=== PATIENT | female | born 1935 | race Caucasian/White ===

== ENCOUNTER → 2018-04-30 10:17 | Outpatient (CLI) | payer BC, SELFPAY ==
--- NOTE | 2018-04-30 | DI.MG.S_ITS ---
BILATERAL DIGITAL SCREENING MAMMOGRAM 3D/2D WITH CAD: 04/30/2018 CLINICAL: Routine screening. Family history of breast cancer. Comparison is made to exams dated: 04/05/2017 mammogram, 02/08/2016 mammogram, and 12/30/2014 mammogram - [facility]. The tissue of both breasts is heterogeneously dense. This may lower the sensitivity of mammography. Current study was also evaluated with a Computer Aided Detection (CAD) system. There are post operative findings in the right breast. No significant masses, calcifications, or other findings are seen in either breast. There has been no significant interval change. IMPRESSION: NEGATIVE There is no mammographic evidence of malignancy. A 1 year screening mammogram is recommended. This exam was interpreted at Station ID: [id number]. NOTE: For mammograms, a report in lay terms will be sent to the patient. Approximately 15% of breast malignancies will not be visualized mammographically. In the management of a palpable breast mass, a negative mammogram must not discourage biopsy of a clinically suspicious lesion. Electronically Signed By: Mauricio hebert/keron:04/30/2018 16:38:40 letter sent: Normal Exam ACR BI-RADS Category 1: Negative 3341F
== END ==
PROVIDERS: Family Provider Family Medicine; PCP Family Medicine; Visit Provider Family Medicine
DX: Z12.31 Encounter for screening mammogram for malignant neoplasm of breast (principal); Z80.3 Family history of malignant neoplasm of breast
CPT/HCPCS: 77063; 77067

== ENCOUNTER → 2019-05-05 10:40 | Outpatient (CLI) | payer BC, SELFPAY ==
--- NOTE | 2019-05-05 | DI.MG.S_ITS ---
BILATERAL DIGITAL SCREENING MAMMOGRAM 3D/2D WITH CAD: 05/05/2019 CLINICAL: Routine screening. Family history of breast cancer. Comparison is made to exams dated: 04/30/2018 mammogram, 04/05/2017 mammogram, 02/08/2016 mammogram, and 12/30/2014 mammogram - [facility]. The tissue of both breasts is heterogeneously dense. This may lower the sensitivity of mammography. Current study was also evaluated with a Computer Aided Detection (CAD) system. There are benign biopsy clips in the right breast. There are mole markers on both breasts. No significant masses, calcifications, or other findings are seen in either breast. There has been no significant interval change. IMPRESSION: NEGATIVE There is no mammographic evidence of malignancy. A 1 year screening mammogram is recommended. This exam was interpreted at Station ID: [id number]. NOTE: For mammograms, a report in lay terms will be sent to the patient. Approximately 15% of breast malignancies will not be visualized mammographically. In the management of a palpable breast mass, a negative mammogram must not discourage biopsy of a clinically suspicious lesion. Electronically Signed By: Channing blunt/keron:05/05/2019 19:59:30 letter sent: Normal Exam ACR BI-RADS Category 1: Negative 3341F
== END ==
PROVIDERS: Family Provider Family Medicine; PCP Family Medicine; Visit Provider Family Medicine
DX: Z12.31 Encounter for screening mammogram for malignant neoplasm of breast (principal); Z80.3 Family history of malignant neoplasm of breast
CPT/HCPCS: 77063; 77067

== ENCOUNTER → 2019-12-15 13:37 | Outpatient (CLI) | payer BC, SELFPAY ==
--- NOTE | 2019-12-15 | DI.MRI.S_ITS ---
PROCEDURE: MR HEAD/BRAIN WO/W CON INDICATIONS: Headache TECHNIQUE: Noncontrast axial T1 spin echo, axial T2 fast spin echo, sagittal and axial FLAIR, coronal T2 fast spin echo, axial gradient echo, axial diffusion and ADC through the brain. After the administration of contrast, axial and coronal T1 spin echo with fat saturation through the brain. COMPARISON: None. FINDINGS: Image quality: Excellent. CSF spaces: Basal cisterns are patent. No extra-axial fluid collections. Ventricles are normal in size and shape. Brain: No midline shift. No intracranial bleeds or masses. No abnormal intracranial enhancement. There is cerebral volume loss for age. There is periventricular white matter chronic small vessel ischemic change. The brainstem appears normal. Diffusion-weighted images demonstrate no acute ischemic insults. No chronic ischemic insults. Normal intravascular flow voids are present. Skull and face: Calvarial marrow is normal in signal. Orbits appear normal. Sinuses: Sinuses and mastoids appear clear. IMPRESSION: No evidence of acute ischemia. No acute intracranial signal abnormality or enhancement. Diffuse small white matter changes, probably represent chronic microvascular ischemic disease, versus statistically less likely demyelination or other infectious, inflammatory, neurodegenerative etiology, technically nonspecific. Dictated by: Tadeo Shahid M.D. on 12/15/2019 at 14:49 Approved by: Tadeo Shahid M.D. on 12/15/2019 at 14:59
== END ==
PROVIDERS: Family Provider Family Medicine; PCP Family Medicine; Visit Provider Family Medicine
DX: R51 Headache (principal)
CPT/HCPCS: 70553; A9579

== ENCOUNTER → 2022-08-23 11:11 | Outpatient (CLI) | payer BC, SELFPAY ==
--- NOTE | 2022-08-23 | DI.MG.S_ITS ---
BILATERAL DIGITAL SCREENING MAMMOGRAM 3D/2D WITH CAD: 08/23/2022 CLINICAL: Routine screening. Family history of breast cancer. Comparison is made to exams dated: 05/05/2019 mammogram, 04/30/2018 mammogram, and 04/05/2017 mammogram - [facility]. Both breasts are heterogeneously dense, which may obscure small masses (category c / 51-75% glandular tissue). Current study was also evaluated with a Computer Aided Detection (CAD) system. There are biopsy clips in the right breast. There are mole markers on both breasts. No significant masses, calcifications, or other findings are seen in either breast. There has been no significant interval change. IMPRESSION: BENIGN There is no mammographic evidence of malignancy. A 1 year screening mammogram is recommended. This exam was interpreted at Station ID: [id number]. NOTE: For mammograms, a report in lay terms will be sent to the patient. Approximately 15% of breast malignancies will not be visualized mammographically. In the management of a palpable breast mass, a negative mammogram must not discourage biopsy of a clinically suspicious lesion. Electronically Signed By: Mars chew/keron:08/23/2022 12:30:21 letter sent: Normal Exam ACR BI-RADS Category 2: Benign Finding(s) 3342F
== END ==
PROVIDERS: Family Provider Family Medicine; PCP Family Medicine; Referring Provider Family Medicine; Visit Provider Family Medicine
DX: Z12.31 Encounter for screening mammogram for malignant neoplasm of breast (principal); Z80.3 Family history of malignant neoplasm of breast
CPT/HCPCS: 77063; 77067

== ENCOUNTER → 2023-10-08 14:08 | Outpatient (CLI) | payer BC, SELFPAY ==
--- NOTE | 2023-10-08 | DI.MG.S_ITS ---
BILATERAL DIGITAL SCREENING MAMMOGRAM 3D/2D WITH CAD: 10/08/2023 CLINICAL: Routine screening. Family history breast cancer. Comparison is made to exams dated: 08/23/2022 mammogram, 05/05/2019 mammogram, and 04/30/2018 mammogram - [facility]. Both breasts are heterogeneously dense, which may obscure small masses (category c / 51-75% glandular tissue). Current study was also evaluated with a Computer Aided Detection (CAD) system. There is a stable benign focal asymmetry in the left breast. There also are biopsy clips in the right breast. There are mole markers on both breasts. No significant masses, calcifications, or other findings are seen in either breast. There has been no significant interval change. IMPRESSION: BENIGN There is no mammographic evidence of malignancy. A 1 year screening mammogram is recommended. This exam was interpreted at Station ID: [id number]. NOTE: For mammograms, a report in lay terms will be sent to the patient. Approximately 15% of breast malignancies will not be visualized mammographically. In the management of a palpable breast mass, a negative mammogram must not discourage biopsy of a clinically suspicious lesion. Electronically Signed By: Rocky Chung M.D. acr/penrad:10/08/2023 15:32:53 letter sent: Normal Exam ACR BI-RADS Category 2: Benign Finding(s) 3342F
== END ==
PROVIDERS: Family Provider Family Medicine; PCP Family Medicine; Referring Provider Family Medicine; Visit Provider Family Medicine
DX: Z12.31 Encounter for screening mammogram for malignant neoplasm of breast (principal); Z80.3 Family history of malignant neoplasm of breast
CPT/HCPCS: 77063; 77067

== ENCOUNTER 2024-03-16 13:45 | Outpatient (RCR) | payer BC, SELFPAY ==
--- NOTE | 2024-03-02 17:46 | PT.OPPOC ---
Physical, Occupational & Speech Therapy At [facility] Current Diagnoses Muscle weakness (generalized) (03/02/24) Unsteadiness on feet (03/02/24) Other abnormalities of gait and mobility (03/02/24) Abnormal posture (03/02/24) Visit Care Team Role Provider Type Boom Dixon MD Attending Provider Physician Family Provider Primary Care Provider Referring Provider Specialty: Family Practice Address: [address] [place] [address], [facility] [place], [facility] Email: [email or web address] Plan Of Care PT-OP-T Assessment and Plan Start: 02/27/24 18:12 Freq: Status: Active Protocol: Document 03/02/24 16:03 [facility] (Rec: 03/02/24 18:07 [facility] [id number]) Physical Therapy Assessment Rehab Potential Rehabilitation Potential Good Evaluation Complexity Number of Personal Factors/Comorbidities 3 or More Number of Body Systems Impaired 4 or More Clinical Presentation at Evaluation Evolving Impairments Impairments Activity Tolerance,Balance, Functional Activities, Functional Mobility,Gait, Posture,ROM,Soft Tissue Mobility,Strength,Transfers Other Concerns Barriers to Rehabilitation pt [place] [facility] and needs to take a ferry to PT; pt has other financial issues currently and cannot attend consistently at this time Goals DGI Impairment 6 Short Term Goal (STG) Pt will score at least 12 on DGI to show dec risk for falls . STG Duration 04/08 Skilled Nursing Goal (LTG) Pt will score at least 20 on DGI to show dec risk for falls . LTG Duration 05/25 sit to stands Short Term Goal (STG) pt will be able to do at least at least 5 sit to stands in 15 sec w/use of hands w/o reps where she falls backwards to chair STG Duration 04/08 Skilled Nursing Goal (LTG) Pt will be able to do at least 2 sit to stands w/o hands w/o falling backwards LTG Duration 05/25 balance Impairment RODRIGUEZ 34/56 Short Term Goal (STG) Pt will score at least least 45/56 to show dec fall risk w/ o AD STG Duration 04/08 Hurricane Tracker Goal (LTG) Pt will score at least 50/56 to show dec fall risk w/ outdoor ambulation LTG Duration 05/25 Assessment Summary Assessment Pt presents w/c/o dec balance w/history of a couple falls. She feels most unstable when first gets going, but once she is moving,s he feels more steady and less concerned w/ her balance. She does show inc fall risk based on RODRIGUEZ score and DGI along w/sit to stand testing. She is motivated to improve balance and strength and likely to be compliant w/ home program. Pt would benefit from skilled PT to address balance and strength deficits and work manually as needed on joints to allow improved mobility. Physical Therapy Plan Frequency and Duration Frequency of Treatment 2x/Week Duration of treatment (weeks) 12 Plan of Care Start Date 03/02/24 Plan of Care End Date 05/25/24 Therapeutic Interventions Therapeutic Interventions Balance Training,Canalithic Repositioning,Home Exercise Program,Joint Mobilizations, Manual Therapy,Neuromuscular Re-education,Patient/Caregiver Education,Self-Care/Home Management,Soft Tissue Mobilization,Taping, Therapeutic Activities, Therapeutic Exercises, Vestibular Rehabilitation Next Visit Focus/Plan Next Note Type Treatment Note Next Visit Plan HEP: sit to stands, standing strength at counter w/safety edu; corner balance balance board, hurdles, dynamic balance Plan of Care Dates Plan of Care Start Date 03/02/24 Plan of Care End Date 05/25/24 Electronically Signed by: Veronika Camarillo, PT 03/04/24 0846 If you are in agreement with this Plan of Care, please return a signed and dated copy. I have reviewed this Plan of Care and certify that the skilled therapy services above are required to meet the patient?s needs. Physician Signature Date Printed Name and Credentials Clinical Instructor Signature Printed Name and Credentials
--- NOTE | 2024-03-02 17:46 | PT.OIE ---
Current Diagnoses Muscle weakness (generalized) (03/02/24) Unsteadiness on feet (03/02/24) Other abnormalities of gait and mobility (03/02/24) Abnormal posture (03/02/24) Visit Care Team Role Provider Type Boom Dixon MD Attending Provider Physician Family Provider Primary Care Provider Referring Provider Specialty: Family Practice Address: [address] [place] [address], [id number] Email: [email or web address] Physical Therapy Initial Evaluation PT-OP-A Visit Information Start: 02/27/24 18:12 Freq: Status: Active Protocol: Document 03/02/24 16:03 [facility] (Rec: 03/02/24 18:07 [facility] [id number]) Out-Patient Physical Therapy Visit Information Visit Information Visit Type Initial Evaluation Visit Note 12/04 Visit Start Time 16:06 Visit Stop Time 16:50 Visit Number 1 Number of FIELD MARKETING COORDINATOR Visits 0 PT-OP-B Current Condition Start: 02/27/24 18:12 Freq: Status: Active Protocol: Document 03/02/24 16:03 [facility] (Rec: 03/02/24 18:07 [facility] [id number]) Current Condition History of Current Condition Current Complaints dec balance History of Current Condition Pt reports she has scoliosis and hips are always off. Notes that her knees get stiff when she sits too long and it can get hard to get going again. Notes when she strides out, she is very comofrtable. WHen she stops or slows down, she feels like she is going to fall backwards. Denies much pain.She did have a tibial tub relocation w/a pin and that was many years ago. That leg doesn't bend as well. 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 SHe is beginnning to have more finger numbness in the AMs especially when its cold. Reports she is working w/ doctor to get BP down and it is slowly getting better. She has a dgt that does all her shopping and lives on [facility] [place] alone. Had some falls. Most of it happens d/t prone to vertigo. Notes sometimes looking up or turning head quick can make her a little dizzy. One time, she was walking in the houseand had to grab a pillar to keep her balance. In the past year, had one fall when stepping up her step where she lunged herself fast and fell fwd. has stopped getting in this way. SHe does get down to the yoga mat and back up w/o oustside assist. HEr yard is uneven. She uses pole for out of the house for walking. on uneven terrain, she cannot get up from the ground indep and requires help. Treatment Goals Patient/Caregiver Goals get balance better; improve balance when stopping walking PT-OP-D Balance Start: 02/27/24 18:12 Freq: Status: Active Protocol: Document 03/02/24 16:03 [facility] (Rec: 03/02/24 18:07 [facility] [id number]) Balance Tests Rodriguez Balance Test Rodriguez Balance Test Score 34/56 Single Limb Standing Single Limb- Right 2 sec Single Limb- Left 2 sec PT-OP-E Functional Tests Start: 02/27/24 18:12 Freq: Status: Active Protocol: Document 03/02/24 16:03 [facility] (Rec: 03/02/24 18:07 [facility] [id number]) Functional Tests 30 Second Sit to Stand Test Score 10 Comments w/hands-falls backwards often Dynamic Gait Index (DGI) Score 6 Five Times Sit to Stand Test Score 14 secs Comments w/hands-falls backwards often PT-OP-G Mobility & Gait Start: 02/27/24 18:12 Freq: Status: Active Protocol: Document 03/02/24 16:03 [facility] (Rec: 03/02/24 18:07 [facility] [id number]) OP Gait Assessment Comments Gait Comments dec stride length , some lat veering, dec push off. PT-OP-J Posture/Palpation/Skin Start: 02/27/24 18:12 Freq: Status: Active Protocol: Document 03/02/24 16:03 [facility] (Rec: 03/02/24 18:07 [facility] [id number]) Posture Evaluation Comments Posture Comments inc kyphosis and obvious kyphosis PT-OP-M Strength Start: 02/27/24 18:12 Freq: Status: Active Protocol: Document 03/02/24 16:03 [facility] (Rec: 03/02/24 18:07 [facility] [id number]) Hip Strength Hip Manual Muscle Testing Right Flexion (L2) 4- Good- External Rotation 3+ Fair+ Internal Rotation 4+ Good+ Left Flexion (L2) 3+ Fair+ External Rotation 3+ Fair+ Internal Rotation 3+ Fair+ Knee Strength Knee Manual Muscle Testing Right Flexion (S2) 4+ Good+ Extension (L3) 4 Good Left Flexion (S2) 4 Good Extension (L3) 4 Good Ankle/Foot Strength Ankle and Foot Manual Muscle Testing Right Dorsiflexion (L4) 4- Good- Plantarflexion (S1) 4 Good Left Dorsiflexion (L4) 4- Good- Plantarflexion (S1) 4- Good- Comments PF tested seated PT-OP-T Assessment and Plan Start: 02/27/24 18:12 Freq: Status: Active Protocol: Document 03/02/24 16:03 [facility] (Rec: 03/02/24 18:07 [facility] [id number]) Physical Therapy Assessment Rehab Potential Rehabilitation Potential Good Evaluation Complexity Number of Personal Factors/Comorbidities 3 or More Number of Body Systems Impaired 4 or More Clinical Presentation at Evaluation Evolving Impairments Impairments Activity Tolerance,Balance, Functional Activities, Functional Mobility,Gait, Posture,ROM,Soft Tissue Mobility,Strength,Transfers Other Concerns Barriers to Rehabilitation pt [place] [facility] and needs to take a ferry to PT; pt has other financial issues currently and cannot attend consistently at this time Goals DGI Impairment 6 Short Term Goal (STG) Pt will score at least 12 on DGI to show dec risk for falls . STG Duration 04/08 Electric Motor Repairman Goal (LTG) Pt will score at least 20 on DGI to show dec risk for falls . LTG Duration 05/25 sit to stands Short Term Goal (STG) pt will be able to do at least at least 5 sit to stands in 15 sec w/use of hands w/o reps where she falls backwards to chair STG Duration 04/08 Nursing Home Goal (LTG) Pt will be able to do at least 2 sit to stands w/o hands w/o falling backwards LTG Duration 05/25 balance Impairment RODRIGUEZ 34/56 Short Term Goal (STG) Pt will score at least least 45/56 to show dec fall risk w/ o AD STG Duration 04/08 Nursing Home Goal (LTG) Pt will score at least 50/56 to show dec fall risk w/ outdoor ambulation LTG Duration 05/25 Assessment Summary Assessment Pt presents w/c/o dec balance w/history of a couple falls. She feels most unstable when first gets going, but once she is moving,s he feels more steady and less concerned w/ her balance. She does show inc fall risk based on RODRIGUEZ score and DGI along w/sit to stand testing. She is motivated to improve balance and strength and likely to be compliant w/ home program. Pt would benefit from skilled PT to address balance and strength deficits and work manually as needed on joints to allow improved mobility. Physical Therapy Plan Frequency and Duration Frequency of Treatment 2x/Week Duration of treatment (weeks) 12 Plan of Care Start Date 03/02/24 Plan of Care End Date 05/25/24 Therapeutic Interventions Therapeutic Interventions Balance Training,Canalithic Repositioning,Home Exercise Program,Joint Mobilizations, Manual Therapy,Neuromuscular Re-education,Patient/Caregiver Education,Self-Care/Home Management,Soft Tissue Mobilization,Taping, Therapeutic Activities, Therapeutic Exercises, Vestibular Rehabilitation Next Visit Focus/Plan Next Note Type Treatment Note Next Visit Plan HEP: sit to stands, standing strength at counter w/safety edu; corner balance balance board, hurdles, dynamic balance
--- NOTE | 2024-03-05 16:52 | PT.OTN ---
Current Diagnoses Muscle weakness (generalized) (03/05/24) Unsteadiness on feet (03/05/24) Other abnormalities of gait and mobility (03/05/24) Abnormal posture (03/05/24) Physical Therapy Treatment Note PT-OP-A Visit Information Start: 02/27/24 18:12 Freq: Status: Active Protocol: Document 03/05/24 13:51 [facility] (Rec: 03/05/24 16:52 [facility] [id number]) Out-Patient Physical Therapy Visit Information Visit Information Visit Type Treatment Note Visit Note 01/04 Visit Start Time 13:51 Visit Stop Time 14:31 Visit Number 2 Number of UNIT CONTROL CLERK Visits 0 PT-OP-B Current Condition Start: 02/27/24 18:12 Freq: Status: Active Protocol: Document 03/02/24 16:03 [facility] (Rec: 03/02/24 18:07 [facility] [id number]) Current Condition History of Current Condition Current Complaints dec balance History of Current Condition Pt reports she has scoliosis and hips are always off. Notes that her knees get stiff when she sits too long and it can get hard to get going again. Notes when she strides out, she is very comofrtable. WHen she stops or slows down, she feels like she is going to fall backwards. Denies much pain.She did have a tibial tub relocation w/a pin and that was many years ago. That leg doesn't bend as well. 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 SHe is beginnning to have more finger numbness in the AMs especially when its cold. Reports she is working w/ doctor to get BP down and it is slowly getting better. She has a dgt that does all her shopping [place] [facility] [place]. Had some falls. Most of it happens d/t prone to vertigo. Notes sometimes looking up or turning head quick can make her a little dizzy. One time, she was walking in the houseand had to grab a pillar to keep her balance. In the past year, had one fall when stepping up her step where she lunged herself fast and fell fwd. has stopped getting in this way. SHe does get down to the yoga mat and back up w/o oustside assist. HEr yard is uneven. She uses pole for out of the house for walking. on uneven terrain, she cannot get up from the ground indep and requires help. Treatment Goals Patient/Caregiver Goals get balance better; improve balance when stopping walking PT-OP-C Subjective Start: 02/27/24 18:12 Freq: Status: Active Protocol: Document 03/05/24 13:51 [facility] (Rec: 03/05/24 16:52 [facility] [id number]) OP-PT Subjective Patient Comments Patient Comments Pt reports she feels like IE was very helpful PT-OP-D Balance Start: 02/27/24 18:12 Freq: Status: Active Protocol: Document 03/02/24 16:03 [facility] (Rec: 03/02/24 18:07 [facility] [id number]) Balance Tests Rodriguez Balance Test Rodriguez Balance Test Score 34/56 Single Limb Standing Single Limb- Right 2 sec Single Limb- Left 2 sec PT-OP-E Functional Tests Start: 02/27/24 18:12 Freq: Status: Active Protocol: Document 03/02/24 16:03 [facility] (Rec: 03/02/24 18:07 [facility] [id number]) Functional Tests 30 Second Sit to Stand Test Score 10 Comments w/hands-falls backwards often Dynamic Gait Index (DGI) Score 6 Five Times Sit to Stand Test Score 14 secs Comments w/hands-falls backwards often PT-OP-G Mobility & Gait Start: 02/27/24 18:12 Freq: Status: Active Protocol: Document 03/02/24 16:03 [facility] (Rec: 03/02/24 18:07 [facility] [id number]) OP Gait Assessment Comments Gait Comments dec stride length , some lat veering, dec push off. PT-OP-J Posture/Palpation/Skin Start: 02/27/24 18:12 Freq: Status: Active Protocol: Document 03/02/24 16:03 [facility] (Rec: 03/02/24 18:07 [facility] [id number]) Posture Evaluation Comments Posture Comments inc kyphosis and obvious kyphosis PT-OP-M Strength Start: 02/27/24 18:12 Freq: Status: Active Protocol: Document 03/02/24 16:03 [facility] (Rec: 03/02/24 18:07 [facility] [id number]) Hip Strength Hip Manual Muscle Testing Right Flexion (L2) 4- Good- External Rotation 3+ Fair+ Internal Rotation 4+ Good+ Left Flexion (L2) 3+ Fair+ External Rotation 3+ Fair+ Internal Rotation 3+ Fair+ Knee Strength Knee Manual Muscle Testing Right Flexion (S2) 4+ Good+ Extension (L3) 4 Good Left Flexion (S2) 4 Good Extension (L3) 4 Good Ankle/Foot Strength Ankle and Foot Manual Muscle Testing Right Dorsiflexion (L4) 4- Good- Plantarflexion (S1) 4 Good Left Dorsiflexion (L4) 4- Good- Plantarflexion (S1) 4- Good- Comments PF tested seated PT-OP-Q Treatments Start: 02/27/24 18:12 Freq: Status: Active Protocol: Document 03/05/24 13:51 [facility] (Rec: 03/05/24 16:52 [facility] [id number]) Therapeutic Exercises Standing Exercises heel raises Standing Exercise Name DL Side bilateral Reps/Minutes 20 sit to stand Side bilateral Reps/Minutes 10 Comments controlled ext Side bilateral Equipment Used L2 at knees Reps/Minutes 20 Comments cues for posture at rail abd Side bilateral Equipment Used L2 at knees Reps/Minutes 15 ea Comments cues for posture at rail Neuro Re-Education Treatment Balance Activities foam Details head turns and EC trials B Surface blue Comments NBOS & WBOS tandem Equipment rail prn Comments 1. stance B 2. walk 20ftx2 rail 2 fingers hurdles Equipment 6 hurdles Comments fwd over recip x6 w/rail PT-OP-T Assessment and Plan Start: 02/27/24 18:12 Freq: Status: Active Protocol: Document 03/05/24 13:51 [facility] (Rec: 03/05/24 16:52 [facility] [id number]) Physical Therapy Assessment Goals DGI Impairment 6 Short Term Goal (STG) Pt will score at least 12 on DGI to show dec risk for falls . STG Duration 5/15 Tester/Lift Trucker Goal (LTG) Pt will score at least 20 on DGI to show dec risk for falls . LTG Duration 05/25 sit to stands Short Term Goal (STG) pt will be able to do at least at least 5 sit to stands in 15 sec w/use of hands w/o reps where she falls backwards to chair STG Duration 15 Tester/Lift Trucker Goal (LTG) Pt will be able to do at least 2 sit to stands w/o hands w/o falling backwards LTG Duration 05/25 balance Impairment RODRIGUEZ 34/56 Short Term Goal (STG) Pt will score at least least 45/56 to show dec fall risk w/ o AD STG Duration 04/08 Detention Goal (LTG) Pt will score at least 50/56 to show dec fall risk w/ outdoor ambulation LTG Duration 05/25 Assessment Summary Assessment Pt noted fatigue in legs after session but did have improvement in skills w/ repetition. She verbalized understanding for safety w/HEP . Physical Therapy Plan Frequency and Duration Frequency of Treatment 2x/Week Duration of treatment (weeks) 12 Plan of Care Start Date 03/02/24 Plan of Care End Date 05/25/24 Next Visit Focus/Plan Next Note Type Treatment Note Next Visit Plan review HEP: sit to stands, standing strength at counter w /safety edu; corner balance balance board, hurdles, dynamic balance
--- NOTE | 2024-03-16 14:30 | PT.OTN ---
Current Diagnoses Muscle weakness (generalized) (03/16/24) Unsteadiness on feet (03/16/24) Other abnormalities of gait and mobility (03/16/24) Abnormal posture (03/16/24) Physical Therapy Treatment Note PT-OP-A Visit Information Start: 02/27/24 18:12 Freq: Status: Active Protocol: Document 03/16/24 13:46 [facility] (Rec: 03/16/24 14:30 [facility] [id number]) Out-Patient Physical Therapy Visit Information Visit Information Visit Type Treatment Note Visit Note 02/01 Visit Start Time 13:49 Visit Stop Time 14:29 Visit Number 3 Number of ELEMENTARY SCHOOL REGISTRAR Visits 0 PT-OP-B Current Condition Start: 02/27/24 18:12 Freq: Status: Active Protocol: Document 03/02/24 16:03 [facility] (Rec: 03/02/24 18:07 [facility] [id number]) Current Condition History of Current Condition Current Complaints dec balance History of Current Condition Pt reports she has scoliosis and hips are always off. Notes that her knees get stiff when she sits too long and it can get hard to get going again. Notes when she strides out, she is very comofrtable. WHen she stops or slows down, she feels like she is going to fall backwards. Denies much pain.She did have a tibial tub relocation w/a pin and that was many years ago. That leg doesn't bend as well. 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 SHe is beginnning to have more finger numbness in the AMs especially when its cold. Reports she is working w/ doctor to get BP down and it is slowly getting better. She has a dgt that does all her shopping and [place] [facility] [place]. Had some falls. Most of it happens d/t prone to vertigo. Notes sometimes looking up or turning head quick can make her a little dizzy. One time, she was walking in the houseand had to grab a pillar to keep her balance. In the past year, had one fall when stepping up her step where she lunged herself fast and fell fwd. has stopped getting in this way. SHe does get down to the yoga mat and back up w/o oustside assist. HEr yard is uneven. She uses pole for out of the house for walking. on uneven terrain, she cannot get up from the ground indep and requires help. Treatment Goals Patient/Caregiver Goals get balance better; improve balance when stopping walking PT-OP-C Subjective Start: 02/27/24 18:12 Freq: Status: Active Protocol: Document 03/16/24 13:46 [facility] (Rec: 03/16/24 14:30 [facility] [id number]) OP-PT Subjective Patient Comments Patient Comments pt reports was really busy w/ taxes so only did some of exercises but did get in a few during the week. PT-OP-D Balance Start: 02/27/24 18:12 Freq: Status: Active Protocol: Document 03/02/24 16:03 [facility] (Rec: 03/02/24 18:07 [facility] [id number]) Balance Tests Rodriguez Balance Test Rodriguez Balance Test Score 34/56 Single Limb Standing Single Limb- Right 2 sec Single Limb- Left 2 sec PT-OP-E Functional Tests Start: 02/27/24 18:12 Freq: Status: Active Protocol: Document 03/02/24 16:03 [facility] (Rec: 03/02/24 18:07 [facility] [id number]) Functional Tests 30 Second Sit to Stand Test Score 10 Comments w/hands-falls backwards often Dynamic Gait Index (DGI) Score 6 Five Times Sit to Stand Test Score 14 secs Comments w/hands-falls backwards often PT-OP-G Mobility & Gait Start: 02/27/24 18:12 Freq: Status: Active Protocol: Document 03/02/24 16:03 [facility] (Rec: 03/02/24 18:07 [facility] [id number]) OP Gait Assessment Comments Gait Comments dec stride length , some lat veering, dec push off. PT-OP-J Posture/Palpation/Skin Start: 02/27/24 18:12 Freq: Status: Active Protocol: Document 03/02/24 16:03 [facility] (Rec: 03/02/24 18:07 [facility] [id number]) Posture Evaluation Comments Posture Comments inc kyphosis and obvious kyphosis PT-OP-M Strength Start: 02/27/24 18:12 Freq: Status: Active Protocol: Document 03/02/24 16:03 [facility] (Rec: 03/02/24 18:07 [facility] [id number]) Hip Strength Hip Manual Muscle Testing Right Flexion (L2) 4- Good- External Rotation 3+ Fair+ Internal Rotation 4+ Good+ Left Flexion (L2) 3+ Fair+ External Rotation 3+ Fair+ Internal Rotation 3+ Fair+ Knee Strength Knee Manual Muscle Testing Right Flexion (S2) 4+ Good+ Extension (L3) 4 Good Left Flexion (S2) 4 Good Extension (L3) 4 Good Ankle/Foot Strength Ankle and Foot Manual Muscle Testing Right Dorsiflexion (L4) 4- Good- Plantarflexion (S1) 4 Good Left Dorsiflexion (L4) 4- Good- Plantarflexion (S1) 4- Good- Comments PF tested seated PT-OP-Q Treatments Start: 02/27/24 18:12 Freq: Status: Active Protocol: Document 03/16/24 13:46 [facility] (Rec: 03/16/24 14:30 [facility] [id number]) Therapeutic Exercises Sitting Exercises marching Side bilateral Equipment Used L2 Reps/Minutes 15 ea DF Sitting Exercise Name DL Side bilateral Reps/Minutes 30 Standing Exercises DF Standing Exercise Name SL Side bilateral Reps/Minutes 15 heel raises Standing Exercise Name DL Side bilateral Reps/Minutes 20 sit to stand Side bilateral Reps/Minutes 10 Comments controlled ext Side bilateral Equipment Used L2 at knees Reps/Minutes 15 ea Comments cues for posture at rail abd Side bilateral Equipment Used L2 at knees Reps/Minutes 15 ea Comments cues for posture at rail & foot position Neuro Re-Education Treatment Balance Activities step up Comments 5 in step w/walking stick x5 B foam Details vertical & horizontal head turns and EC trials B Surface blue Comments NBOS & WBOS & staggered stance B tandem Equipment rail prn Comments 1. stance B 2. walk 15ftx2 rail 2 fingers hurdles Equipment 6 hurdles Comments fwd over recip x6 w/rail PT-OP-T Assessment and Plan Start: 02/27/24 18:12 Freq: Status: Active Protocol: Document 03/16/24 13:46 [facility] (Rec: 03/16/24 14:30 [facility] [id number]) Physical Therapy Assessment Goals DGI Impairment 6 Short Term Goal (STG) Pt will score at least 12 on DGI to show dec risk for falls . STG Duration 5/15 Detention Goal (LTG) Pt will score at least 20 on DGI to show dec risk for falls . LTG Duration 7/1 sit to stands Short Term Goal (STG) pt will be able to do at least at least 5 sit to stands in 15 sec w/use of hands w/o reps where she falls backwards to chair STG Duration 04/08 Financial Administrator Goal (LTG) Pt will be able to do at least 2 sit to stands w/o hands w/o falling backwards LTG Duration 05/25 balance Impairment RODRIGUEZ 34/56 Short Term Goal (STG) Pt will score at least least 45/56 to show dec fall risk w/ o AD STG Duration 04/08 Financial Administrator Goal (LTG) Pt will score at least 50/56 to show dec fall risk w/ outdoor ambulation LTG Duration 05/25 Assessment Summary Assessment Pt requires cues throughout exercises still (wt shift fwd w/sit to stand and LE movements in right plane w/hip abd/ext). She still struggled w/balance tasks also. Physical Therapy Plan Frequency and Duration Frequency of Treatment 2x/Week Duration of treatment (weeks) 12 Plan of Care Start Date 03/02/24 Plan of Care End Date 05/25/24 Next Visit Focus/Plan Next Note Type Treatment Note Next Visit Plan review HEP: sit to stands, standing strength at counter w /safety edu; corner balance balance board, hurdles, dynamic balance
--- NOTE | 2024-04-27 14:02 | PT-OP ANOTE ---
Pt called re: cancellations and VM left re: pt plan for PT. Pt asked to call back to inform us of her plan: if she would like to cont or DC.
--- NOTE | 2024-06-03 15:44 | PT.OPDS ---
Current Diagnoses Muscle weakness (generalized) (03/16/24) Unsteadiness on feet (03/16/24) Other abnormalities of gait and mobility (03/16/24) Abnormal posture (03/16/24) Visit Care Team Role Provider Type Boom Dixon MD Attending Provider Physician Family Provider Primary Care Provider Referring Provider Specialty: Family Practice Address: [address] [place] [address], [id number] Email: [email or web address] Visit Number Visit Number 3 Discharge Summary PT-OP-B Current Condition Start: 02/27/24 18:12 Freq: Status: Active Protocol: Document 03/02/24 16:03 [facility] (Rec: 03/02/24 18:07 [facility] [id number]) Current Condition History of Current Condition Current Complaints dec balance History of Current Condition Pt reports she has scoliosis and hips are always off. Notes that her knees get stiff when she sits too long and it can get hard to get going again. Notes when she strides out, she is very comofrtable. WHen she stops or slows down, she feels like she is going to fall backwards. Denies much pain.She did have a tibial tub relocation w/a pin and that was many years ago. That leg doesn't bend as well. 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 SHe is beginnning to have more finger numbness in the AMs especially when its cold. Reports she is working w/ doctor to get BP down and it is slowly getting better. She has a dgt that does all her shopping and [place] [facility] [place]. Had some falls. Most of it happens d/t prone to vertigo. Notes sometimes looking up or turning head quick can make her a little dizzy. One time, she was walking in the houseand had to grab a pillar to keep her balance. In the past year, had one fall when stepping up her step where she lunged herself fast and fell fwd. has stopped getting in this way. SHe does get down to the yoga mat and back up w/o oustside assist. HEr yard is uneven. She uses pole for out of the house for walking. on uneven terrain, she cannot get up from the ground indep and requires help. 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 PT-OP-D Balance Start: 02/27/24 18:12 Freq: Status: Active Protocol: Document 03/02/24 16:03 [facility] (Rec: 03/02/24 18:07 [facility] [id number]) Balance Tests Rodriguez Balance Test Rodriguez Balance Test Score 34/56 Single Limb Standing Single Limb- Right 2 sec Single Limb- Left 2 sec PT-OP-E Functional Tests Start: 02/27/24 18:12 Freq: Status: Active Protocol: Document 03/02/24 16:03 [facility] (Rec: 03/02/24 18:07 [facility] [id number]) Functional Tests 30 Second Sit to Stand Test Score 10 Comments w/hands-falls backwards often Dynamic Gait Index (DGI) Score 6 Five Times Sit to Stand Test Score 14 secs Comments w/hands-falls backwards often PT-OP-G Mobility & Gait Start: 02/27/24 18:12 Freq: Status: Active Protocol: Document 03/02/24 16:03 [facility] (Rec: 03/02/24 18:07 [facility] [id number]) OP Gait Assessment Comments Gait Comments dec stride length , some lat veering, dec push off. PT-OP-J Posture/Palpation/Skin Start: 02/27/24 18:12 Freq: Status: Active Protocol: Document 03/02/24 16:03 [facility] (Rec: 03/02/24 18:07 [facility] [id number]) Posture Evaluation Comments Posture Comments inc kyphosis and obvious kyphosis PT-OP-M Strength Start: 02/27/24 18:12 Freq: Status: Active Protocol: Document 03/02/24 16:03 [facility] (Rec: 03/02/24 18:07 [facility] [id number]) Hip Strength Hip Manual Muscle Testing Right Flexion (L2) 4- Good- External Rotation 3+ Fair+ Internal Rotation 4+ Good+ Left Flexion (L2) 3+ Fair+ External Rotation 3+ Fair+ Internal Rotation 3+ Fair+ Knee Strength Knee Manual Muscle Testing Right Flexion (S2) 4+ Good+ Extension (L3) 4 Good Left Flexion (S2) 4 Good Extension (L3) 4 Good Ankle/Foot Strength Ankle and Foot Manual Muscle Testing Right Dorsiflexion (L4) 4- Good- Plantarflexion (S1) 4 Good Left Dorsiflexion (L4) 4- Good- Plantarflexion (S1) 4- Good- Comments PF tested seated PT-OP-T Assessment and Plan Start: 02/27/24 18:12 Freq: Status: Active Protocol: Document 06/03/24 15:41 [facility] (Rec: 06/03/24 15:44 [facility] [id number]) Physical Therapy Assessment Goals DGI Impairment 6 Short Term Goal (STG) Pt will score at least 12 on DGI to show dec risk for falls . STG Duration 04/08 Usp Goal (LTG) Pt will score at least 20 on DGI to show dec risk for falls . LTG Duration 05/25 sit to stands Short Term Goal (STG) pt will be able to do at least at least 5 sit to stands in 15 sec w/use of hands w/o reps where she falls backwards to chair STG Duration 04/08 Usp Goal (LTG) Pt will be able to do at least 2 sit to stands w/o hands w/o falling backwards LTG Duration 05/25 balance Impairment RODRIGUEZ 34/56 Short Term Goal (STG) Pt will score at least least 45/56 to show dec fall risk w/ o AD STG Duration 04/08 Undergraduate Intern Goal (LTG) Pt will score at least 50/56 to show dec fall risk w/ outdoor ambulation LTG Duration 05/25 Assessment Summary Assessment Pt did well with exercises in PT but only attened 3 PT sessions including eval d/t finances and difficulty w/ travel to appts. Pt cancelled last 2 appts and did not reschedule. DC d/t no longer attending PT and has not been seen in 6 weeks. Physical Therapy Plan Discharge Physical Therapy Discharge Reasons No Longer Attending PT
== END 2024-06-10 10:01 | disposition home or self-care (01) ==
LOC: PHYS 13:45
PROVIDERS: Family Provider Family Medicine; PCP Family Medicine; Referring Provider Family Medicine; Visit Provider Family Medicine
DX: R26.89 Other abnormalities of gait and mobility (principal); M62.81 Muscle weakness (generalized); R29.3 Abnormal posture; R26.81 Unsteadiness on feet
CPT/HCPCS: 97110; 97112; 97162

== ENCOUNTER 2024-06-04 20:27 | Observation (INO) | payer BC, SELFPAY ==
[2024-06-04] VITALS (9 sets, daily range): BP systolic 176–226; BP diastolic 79–104; PULSE 73–83; RESP 18; TEMP 37.1; O2SAT 98–100; BMI 18.8
--- NOTE | 2024-06-04 20:38 | DI.CT.S_ITS ---
PROCEDURE: CT HEAD/BRAIN WO CON INDICATIONS: fall with head injury and confusion TECHNIQUE: Noncontrast 4.5 mm thick angled axial sections acquired from the foramen magnum to the vertex, with coronal and sagittal reformats. For radiation dose reduction, the following was used: automated exposure control, adjustment of mA and/or kV according to patient size. COMPARISON: None. FINDINGS: Image quality: Diagnostic. CSF spaces: Basal cisterns are patent. No extra-axial fluid collections. The ventricles are symmetric in size and shape. Brain: No intracranial bleeds or masses. There is cerebral volume loss for age, with resultant ventricular and sulcal prominence. There are periventricular and deep white matter chronic small vessel ischemic changes. There is intracranial internal carotid artery atherosclerosis. Skull and face: Calvarium and visualized facial bones appear intact, without suspicious lesions. Sinuses: Visualized sinuses and mastoids are clear. IMPRESSION: No acute intracranial pathology. Approved by: India Day M.D.,Ph.D. on 06/04/2024 at 21:21
--- NOTE | 2024-06-04 20:38 | DI.CT.S_ITS ---
PROCEDURE: CT CERVICAL SPINE WO CON INDICATIONS: fall with head injury and confusion TECHNIQUE: Noncontrast 3 mm thick sections acquired from the skull base to the T4 level. Sagittal and coronal reformats were then constructed. For radiation dose reduction, the following was used: automated exposure control, adjustment of mA and/or kV according to patient size. COMPARISON: None. FINDINGS: Image quality: Diagnostic Bones: No fractures or dislocations. Visualized superior ribs are intact. Soft tissues: Prevertebral soft tissues are normal in thickness. No paravertebral hematomas. No apical pneumothoraces. IMPRESSION: No displaced fracture or traumatic subluxation. Approved by: India Day M.D.,Ph.D. on 06/04/2024 at 21:24
--- NOTE | 2024-06-04 20:55 | PC.NURSE ---
Daughter Chelsie states that mother isn't normally confused unless she has little to no sleep. Unwitnessed fall. Daughter believes that she went to get the mail and on the way back to house fell backwards up one step to her house. This morning went to [facility] in [place] and argued with the staff at counter. She did seem a little confused. Then [facility] to pay bills then home with daughter. Pt is not diabetic but daughter believes that she did not eat anything but sugar today.
[2024-06-04 22:36] LABS: Bacteria Urine None Seen; Culture Indicated Urine Cult Not Indicated; RBC Urine 0-1/HPF (0-5/HPF); Squamous Epithelial Cell Urine 0-1 /HPF (0-5/HPF); Urine Volume 10mL (spun); WBC Urine None Seen (0-5/HPF)
--- NOTE | 2024-06-04 22:38 | DI.RAD.S_ITS ---
PROCEDURE: XR CHEST 1V INDICATIONS: altered mental status TECHNIQUE: One view of the chest was acquired. COMPARISON: [facility], , CHEST 1 VIEW, 04/29/2015, 12:42. FINDINGS: Surgical changes and devices: None. Lungs and pleura: Lungs are clear. No pleural effusions or pneumothorax. Mediastinum: Mediastinal contours appear normal. Heart size is normal. Bones and chest wall: No suspicious bony lesions. Overlying soft tissues appear unremarkable. IMPRESSION: No acute cardiopulmonary abnormality is seen. Approved by: Indai Day M.D.,Ph.D. on 06/04/2024 at 23:38
--- NOTE | 2024-06-04 22:38 | EKG_ITS ---
[place] [id number] [place] [id number] Test Date: 2024-06-04 Pat Name: Liliya Stokes Department: [facility] Room: Gender: Female Broom Worker: BHAVIK : 1935 Requested By: Order Number: [id number] Reading MD: Boaz Johnson MD Measurements Intervals Naylor Rate: 78 P: 56 AK: 162 QRS: 20 QRSD: 72 T: 44 QT: 402 QTc: 458 Interpretive Statements Sinus rhythm with occasional premature ventricular complexes Low voltage QRS Cannot rule out Anterior infarct , age undetermined Electronically Signed On 06-05-2024 7:25:54 PDT by Boaz Johnson MD
[2024-06-04 23:02] LABS: Add Manual Diff / Slide Review NO; Basophils Absolute Auto 0 /uL (0-100); Basophils Percent Auto 0.1 % (0-2); Eosinophils Absolute Auto 200 /uL (0-450); Eosinophils Percent Auto 1.5 % (2-4); Hematocrit 39.5 % (36-46); Hemoglobin 13.2 g/dL (12.0-16.0); Lymphocytes Absolute Auto 2600 /uL (1100-4500); Lymphocytes Percent Auto 23.1 % (25-40); Mean Corpuscular HGB Conc 33.3 % (30-36); Mean Corpuscular Hemoglobin 30.4 PG (26-34); Mean Corpuscular Volume 91.1 fL (80-100); Monocytes Absolute Auto 900 /uL (0-900); Monocytes Percent Auto 8.2 % (3-14); Neutrophils Absolute Auto 7700 /uL (1500-7000); Neutrophils Percent Auto 67.1 % (50-75); Platelet Count 541 X10^3/uL (150-400); Red Blood Cell Count 4.34 X10^6/uL (4.0-5.2); Red Cell Distribution Width 13.8 % (11.6-14.8); White Blood Cell Count 11.4 X10^3/uL (4.5-11.0)
[2024-06-04 23:04] LABS: Alanine Aminotransferase 18 IU/L (<35); Albumin 4.2 g/dL (3.5-5.0); Albumin Globulin Ratio 1.2 (1.0-2.8); Alkaline Phosphatase 94 U/L (38-126); Aspartate Aminotransferase 32 IU/L (14-36); BUN Creatinine Ratio 53.6 (6-22); Bilirubin Total 0.4 mg/dL (0.2-1.3); Blood Urea Nitrogen 30 mg/dL (7-17); Calcium 8.9 mg/dL (8.4-10.2); Carbon Dioxide 28 mmol/L (22-32); Chloride 101 mmol/L (98-107); Estimated Glomerular Filt Rate > 60 mL/min (>60); Globulin 3.6 g/dL (1.7-4.1); Glucose 97 mg/dL (80-110); HEMOLYSIS < 15 (0-50); Potassium 4.2 mmol/L (3.4-5.1); Sodium 134 mmol/L (137-145); Total Protein 7.8 g/dL (6.3-8.2)
[2024-06-05] VITALS (22 sets, daily range): BP systolic 134–223; BP diastolic 56–113; PULSE 60–86; RESP 16–38; TEMP 36.4–37.3; O2SAT 93–100; BMI 19.8
[2024-06-05 00:22] LABS: UR Morphine/Opiate cutoff 300 Negative (Negative); Ur Creatinine Normal (Normal); Ur Specific Gravity Normal (Normal); Urine Amphetamines Negative (Negative); Urine Barbiturates Negative (Negative); Urine Benzodiazepines Negative (Negative); Urine Cocaine Negative (Negative); Urine MDMA Negative (Negative); Urine Methadone Negative (Negative); Urine Methamphetamines Negative (Negative); Urine Oxycodone Negative (Negative); Urine Phencyclidine Negative (Negative); Urine Tetrahydrocannabinol Negative (Negative); Urine Tricyclic Antidepressant Negative (Negative); Urine pH Normal (Normal)
[2024-06-05 00:57] LABS: Ammonia (NH3) < 9 umol/L (9-30)
--- NOTE | 2024-06-05 01:47 | ED_ITS ---
HPI - Fall General Chief Complaint: Fall Stated Complaint: GLF- trip slip Time Seen by Provider: 06/05/24 01:47 Source: patient, EMS, RN notes reviewed and old records reviewed Mode of arrival: EMS Limitations: no limitations History of Present Illness HPI Narrative: 89-year-old female with history of mild memory changes, hypothyroidism ground level fall unwitnessed in her yard falling off a step. Reported hit head no loss of consciousness. Patient is alert, conversant but is confused. She can tell me her name, she knows she has at a hospital she initially thinks she is in [place]. She does note her daughter's name. She was able to tell me that she takes levothyroxine. She currently has no complaints. Daughter notes that this is a change from her normal mentation. They did note she seemed a little bit more agitated when they went to the [place] and there was some confusion about patient's paperwork prior to fall. States patient is very much different from her baseline. Related Data Allergies Allergy/AdvReac Type Severity Reaction Status Date / Time NSAIDS (Non-Steroidal Allergy Unknown STOMACH Unverified 03/05/18 12:59 Anti-Inflamma PAIN [NSAIDS (NON-STEROIDAL ANTI-INFLAMMA] Review of Systems Review of Systems ROS Unobtainable: All systems reviewed & are unremarkable except as noted in HPI and below Exam Narrative Exam Narrative: GEN: Patient appears in mild distress,. Thin alert and oriented to self, knows she is at the hospital but is unclear about her exact location. Patient is pleasantly confused, has trouble giving any history. HEAD: 1.7 cm horizontal laceration to the posterior scalp, no raccoon/Ruiz sign. NECK: Nontender, painless range of motion, trachea midline Negative Nexus criteria, no midline line tenderness, distracting injury, altered mental status, neuro deficit, recent EtOH. EYES: PERRLA, EOMI ENT: External inspection normal, trachea is midline, TM's are normal no hemotypanum, Nares are clear, no septal hematoma, no dental or oral injury, airway is normal and with normal occlusion, No bony tenderness RESP: Chest is nontender and has symmetric movement, no ecchymosis, breath sounds are normal no crackles, wheezes or rales CVS: Heart sounds are normal, no murmur noted, No JVD. ABG/GI: Nontender, soft, normal bowel sounds, no distention, no organomegaly, pelvic rock is negative NEURO: Oriented AOx3, neuro is grossly intact, sensation and motor is normal all 4 extremities moving, cranial nerves II through XII are intact, GCS is 14. PSYCH: Normal mood and affect SKIN: Intact, warm and dry, no crepitus and without decubitus BACK: No CVA tenderness, no vertebral tenderness, no step-off's, no crepitus EXT: Atraumatic, hips are nontender, no pedal edema, normal color and temperature, normal range of motion of extremities with normal tendon exam, 2+ pulses in all four extremities Initial Vital Signs Initial Vital Signs: Vital Signs Temperature 98.8 F 06/04/24 20:40 Pulse Rate 83 06/04/24 20:40 Respiratory Rate 18 06/04/24 20:40 Blood Pressure 188/85 H 06/04/24 20:40 Pulse Oximetry 100 06/04/24 20:40 Oxygen Delivery Method Room Air 06/04/24 20:40 Procedures Laceration Repair Laceration 1: Site: scalp Size (cm): 1.7 Description: irregular and clean Depth: simple, single layer Local Anesthetic: other anesthetic (topical prilocaine) Pre-repair: wound explored, irrigated extensively and deep structures intact Skin layer closed with: ana lilia (#3) Course Orders Ordered: ED Orders 06/04/24 22:38 XR chest 1V Stat EKG-12 Lead Stat 06/05/24 02:11 ETOH [Ethanol (ETOH)] Stat TSH w/ Reflex to FT4 Stat Discontinued Medications Lidocaine/Prilocaine (Lidocaine/Prilocaine 5 Gm) 5 gm TOP NOW ONE Stop: 06/05/24 02:34 Last Admin: 06/05/24 02:40 Dose: 5 gm Documented By: AB Vital Signs Vital signs: Vital Signs - 8 hr 06/04/24 22:30 06/04/24 22:30 06/04/24 23:00 Pulse Rate 73 79 Respiratory Rate Blood Pressure 181/92 H Pulse Oximetry 100 99 Oxygen Delivery Method 06/04/24 23:00 06/04/24 23:30 06/04/24 23:30 Pulse Rate 74 Respiratory Rate Blood Pressure 176/104 H 188/79 H Pulse Oximetry 98 Oxygen Delivery Method 06/05/24 00:00 06/05/24 00:00 06/05/24 00:30 Pulse Rate 80 Respiratory Rate Blood Pressure 186/105 H 196/89 H Pulse Oximetry 99 Oxygen Delivery Method Room Air 06/05/24 00:30 06/05/24 01:10 06/05/24 01:12 Pulse Rate 75 86 77 Respiratory Rate 30 H Blood Pressure Pulse Oximetry 98 99 98 Oxygen Delivery Method 06/05/24 01:12 06/05/24 01:14 06/05/24 01:14 Pulse Rate 76 Respiratory Rate Blood Pressure 223/95 H 216/86 H Pulse Oximetry 100 Oxygen Delivery Method 06/05/24 01:30 06/05/24 01:31 06/05/24 01:31 Pulse Rate 71 69 Respiratory Rate Blood Pressure 176/75 H Pulse Oximetry 94 93 Oxygen Delivery Method 06/05/24 02:00 06/05/24 02:00 06/05/24 02:30 Pulse Rate 68 Respiratory Rate 27 H Blood Pressure 175/77 H 213/113 H Pulse Oximetry 100 Oxygen Delivery Method Room Air 06/05/24 02:30 06/05/24 03:00 06/05/24 03:00 Pulse Rate 72 72 Respiratory Rate 37 H 38 H Blood Pressure 176/80 H Pulse Oximetry 99 99 Oxygen Delivery Method 06/05/24 03:30 06/05/24 03:30 06/05/24 04:00 Pulse Rate 68 69 Respiratory Rate 24 26 H Blood Pressure 159/75 H Pulse Oximetry 98 97 Oxygen Delivery Method 06/05/24 04:00 06/05/24 04:30 06/05/24 04:30 Pulse Rate 62 Respiratory Rate 30 H Blood Pressure 166/77 H 151/67 H Pulse Oximetry 95 Oxygen Delivery Method Room Air 06/05/24 05:00 06/05/24 05:00 06/05/24 05:30 Pulse Rate 63 60 Respiratory Rate 36 H Blood Pressure 161/73 H Pulse Oximetry 97 94 Oxygen Delivery Method Room Air 06/05/24 05:30 Pulse Rate Respiratory Rate Blood Pressure 182/72 H Pulse Oximetry Oxygen Delivery Method MDM - Fall Lab Data 06/04/24 20:35 06/04/24 20:35 Labs: Lab Results 06/04/24 06/04/24 Range/Units 20:35 20:46 WBC 11.4 H (4.5-11.0) X10^3/uL RBC 4.34 (4.0-5.2) X10^6/uL Hgb 13.2 (12.0-16.0) g/dL Hct 39.5 (36-46) % MCV 91.1 (80-100) fL MCH 30.4 (26-34) PG MCHC 33.3 (30-36) % RDW 13.8 (11.6-14.8) % Plt Count 541 H (150-400) X10^3/uL Neut % (Auto) 67.1 (50-75) % Lymph % (Auto) 23.1 L (25-40) % [place] % (Auto) 8.2 (3-14) % Eos % (Auto) 1.5 L (2-4) % Baso % (Auto) 0.1 (0-2) % Neut # (Auto) 7700 H (9136-9817) /uL Lymph # (Auto) 2600 (9290-8698) /uL [place] # (Auto) 900 (0-900) /uL Eos # (Auto) 200 (0-450) /uL Baso # (Auto) 0 (0-100) /uL Sodium 134 L (137-145) mmol/L Potassium 4.2 (3.4-5.1) mmol/L Chloride 101 (98-107) mmol/L Carbon Dioxide 28 (22-32) mmol/L BUN 30 H (7-17) mg/dL Creatinine 0.56 (0.52-1.04) mg/dL Estimated GFR > 60 (>60) mL/min BUN/Creatinine Ratio 53.6 H (6-22) Glucose 97 (80-110) mg/dL Calcium 8.9 (8.4-10.2) mg/dL Total Bilirubin 0.4 (0.2-1.3) mg/dL AST 32 (14-36) IU/L ALT 18 (<35) IU/L Alkaline Phosphatase 94 (38-126) U/L Ammonia < 9 L (9-30) umol/L Total Protein 7.8 (6.3-8.2) g/dL Albumin 4.2 (3.5-5.0) g/dL Globulin 3.6 (1.7-4.1) g/dL Albumin/Globulin Ratio 1.2 (1.0-2.8) TSH 8.05 H (0.47-4.68) uIU/mL Free T4 1.72 (0.78-2.19) ng/dL Urine RBC 0-1/hpf (0-5/HPF) Urine WBC None seen (0-5/HPF) Ur Squamous Epith Cells 0-1 /hpf (0-5/HPF) Urine Bacteria None seen (None) Ur Culture Indicated? Cult not indicated Vol Urine Centrifuged 10ml (spun) U Opiates 300ng/mL cut Negative (Negative) Ur Oxycodone Screen Negative (Negative) Urine Methadone Screen Negative (Negative) Ur Barbiturates Screen Negative (Negative) U Tricyclic Antidepress Negative (Negative) Ur Phencyclidine Scrn Negative (Negative) Ur Amphetamines Screen Negative (Negative) U Methamphetamines Scrn Negative (Negative) Ur MDMA Scrn (Ecstasy) Negative (Negative) U Benzodiazepines Scrn Negative (Negative) Urine Cocaine Screen Negative (Negative) U Marijuana (THC) Screen Negative (Negative) Urine pH Normal (Normal) Urine Specific [place] Normal (Normal) Ethyl Alcohol < 10 ( - 10) mg/dL Ur Creatinine Normal (Normal) Point of Care Testing Glucose POC 106 Urine Dip Bedside Urine Glucose Negative Bedside Urine Bilirubin - Negative Bedside Urine Ketone - Negative Urine Specific [place] 1.015 Bedside Urine Occult Blood +/- Bedside Urine pH 7.0 Bedside Urine Protein +/- 15 Bedside Urine Urobilinogen - Negative Bedside Urine Nitrite - Negative Bedside Urine Leukocytes - Negative Esterase ECG Data Attestation: I personally reviewed and interpreted this ECG as follows: Prior ECG tracings: available for review Interpretation: Sinus rhythm, rate of 78 OR 162 QRS is 72 QTC 458, no acute ST changes appreciated. Patient has nonspecific change. [facility] Narrative Medical decision making narrative: Labs show white count of 11.4, hemoglobin is 13, platelets of 541, sodium of 134 potassium of 4.2 chloride of 101 CO2 of 28 with a BUN of 30 creatinine 0.56, glucose 97, LFTs are negative, negative ammonia, Urine microscopy shows 1 red cell no white cells 1 squamous no bacteria, negative for leuks or nitrates. TSH is elevated at 8, free T4 is 1.72 Urine drug screen is negative EKG shows sinus rhythm, nonspecific change. Head CT is negative for acute change. Cervical spine CT is negative. Chest x- ray is negative. 89-year-old female with history of mild memory changes, does have a history of hypothyroidism reported to have sudden change in mentation today. Daughter states had some mild changes before the fall but was significantly changed afterwards. Patient had a ground level fall unwitnessed does have a scalp laceration. Patient is alert but clearly confused. Family lives locally with patient and states that this is different from her normal. Labs do not show any clear source, urine does not really show any signs of infection UDS is negative, EKG shows no acute changes patient had head CT CC C-spine and chest x-ray were drawn negative. Patient has good range of motion with no lateralizing deficits and she has clear speech but is confused. Patient did not fail ambulation trial. Normally lives independently without anyone at home. Daughters in department states she has a little bit better but she still quite confused. Patient is still think she is in [place]. Daughter states she should know what town she is in. She has a [facility] patient. Spoke with hospitalist for observation, likely concussion on top of baseline mild dementia. Spoke with Dr. Johnson who accepted for observation. Discharge Plan Departure Patient Disposition: Admitted as Observation Clinical Impression: Altered mental status, Laceration of scalp, Concussion
[2024-06-05 02:31] LABS: Ethanol (ETOH) < 10 mg/dL
[2024-06-05] MEDS: LIDOCAINE/PRILOCAINE 5 GM TOP (02:40)
[2024-06-05 04:01] LABS: TSH w/ Reflex to FT4 8.05 uIU/mL (0.47-4.68)
[2024-06-05 04:27] LABS: Free T4, Direct Thyroxine 1.72 ng/dL (0.78-2.19)
--- NOTE | 2024-06-05 05:48 | PC.NURSE ---
Approximately 1:20 am pt attempted to walk to bathroom with 1 person assist. Pt unable to make it 20 feet prior to feeling unsteady. Wheelchair needed to assist pt to make it to restroom for pt to have a BM. Pt did not want to use bedside commode or bedpan due to having shy bladder, and wanted to try to use toilet. Pt will remain in bed with brief and purwick in place.
--- NOTE | 2024-06-05 06:28 | PC.NURSE ---
Pt assisted to bathroom, changed brief at this time. Pt wanting to sit in wheelchair for a little while.
--- NOTE | 2024-06-05 06:34 | PC.NURSE ---
Pt is talkative, but still having issues with short term memory. Gait not steady, will continue to use wheelchair for longer distances until further evaluation.
--- NOTE | 2024-06-05 09:10 | DI.ECHO.S_ITS ---
[facility] +---------+ [facility] : : [address] : : [place] : : [id number] : : Phone: [phone] Echocardiogram Report + + :Name: ALBA AGUILAR Study Date: 06/05/2024 Height: 65 in : :Hospital ReadingLocation: Weight: 113 lb : : Gender: Female BSA: 1.6 m2 : :: 1935 Age: 89 yrs BP: 158/64 mmHg: :Reason For Study: UNEXPLAINED FALL : :Ordering Physician: CORA, : :MAGNO Bravo Performed By: Brenda Ramirez : :Referring: MAGNO SHEPHERD : + + Interpretation Summary There is mild concentric left ventricular hypertrophy. The ejection fraction is estimated to be 65-70%. Left ventricular wall motion is normal. Diastolic parameters suggest probable normal left ventricular diastolic function and normal filling pressures. The right ventricle is normal in size and function. The right ventricular systolic pressure is estimated to be at least 27 mmHg based on an estimated right atrial pressure of 3 mm Hg. The left atrial size is normal. There is no significant valvular heart disease. Procedure: A two-dimensional transthoracic echocardiogram with color flow and Doppler was performed. The study quality was technically adequate. There is no prior echocardiogram noted for this patient. The patient was in sinus rhythm with heart rates between 76-88 bpm during the exam. Left Ventricle: The left ventricle is normal in size. There is mild concentric left ventricular hypertrophy. The ejection fraction is estimated to be 65-70%. Left ventricular wall motion is normal. Diastolic parameters suggest probable normal left ventricular diastolic function and normal filling pressures. Right Ventricle: The right ventricle is normal in size and function. Atria: The left atrial size is normal. Right atrial size is normal. There is no Doppler evidence for an interatrial shunt. Mitral Valve: The mitral valve leaflets appear mildly thickened, but open well. There is trace mitral regurgitation. Aortic Valve: The aortic valve is trileaflet. The aortic valve opens well. There is no aortic valve stenosis. No aortic regurgitation is present. Tricuspid Valve: The tricuspid valve is normal in structure and function. There is trace tricuspid regurgitation. The right ventricular systolic pressure is estimated to be at least 27 mmHg based on an estimated right atrial pressure of 3 mm Hg. Pulmonic Valve: The pulmonic valve is not well visualized. There is trace pulmonic regurgitation. There is no significant valvular heart disease. Great Vessels: The aortic root is normal size. The dimensions of the ascending aorta are normal. The IVC is of normal diameter and collapses greater than 50% with a sniff. This suggests a low right atrial pressure of 3 mm Hg. Pericardium/ Pleura There is no pericardial effusion. There is no pleural effusion. MMode/2D Measurements & Calculations LVIDd: 3.3 cm LVOT diam: 1.9 cm LVIDs: 2.1 cm Ao root diam: 2.9 cm FS: 36.5 % asc Aorta Diam: 3.4 cm IVSd: 1.1 cm Ao Arch Diam (Prox Trans): 2.8 cm LVPWd: 1.1 cm LV izquierdo. diameter/BSA (cm/m^2): 2.1 LV sys. diameter/BSA (cm/m^2): 1.3 LA A2 area: 13.4 cm2 RA long axis: 4.6 cm LA A4 area: 16.4 cm2 RA area: 14.8 cm2 LA length (vol): 5.0 cm RA vol: 40.1 ml LA vol: 37.3 ml RA : 25.8 ml/m2 LA vol index: 24.0 ml/m2 IVC diam: 1.1 cm RVD1 (basal): 3.3 cm RVD2 (mid): 2.8 cm TAPSE: 2.3 cm Doppler Measurements & Calculations Ao V2 max: 160.0 cm/sec LVOT Max Jeff: 134.2 cm/sec Ao V2 mean: 121.1 cm/sec LV V1 max P.2 mmHg Ao max P.2 mmHg LV V1 VTI: 25.1 cm Ao mean P.3 mmHg ЮЛИЯ(I,D): 2.3 cm2 Ao V2 VTI: 30.2 cm ЮЛИЯ(V,D): 2.3 cm2 sev ratio: 0.83 ЮЛИЯ indexed to BSA (cm^2/m^2): 1.5 MV E max jeff: 77.3 cm/sec TR max jeff: 242.6 cm/sec MV A max jeff: 77.3 cm/sec TR max P.5 mmHg MV E/A: 1.0 PA V2 max: 133.7 cm/sec Med Peak E' Jeff: 5.0 cm/sec PA V2 mean: 92.7 cm/sec E/E' med: 15.6 PA mean P.9 mmHg Lat Peak E' Jeff: 5.1 cm/sec PA pr(Accel): 41.7 mmHg E/E' lat: 15.1 E/e' average: 15.3 MV dec time: 0.21 sec SV(LVOT): 69.3 ml Reading Physician:01:47 PM
[2024-06-05] MEDS: LOSARTAN 25 MG TABLET PO (09:36)
[2024-06-05] MEDS: ACETAMINOPHEN 325 MG TABLET 650 MG PO (09:40)
--- NOTE | 2024-06-05 10:10 | PT.IIE ---
Physical Therapy Inpatient Evaluation/Re-Eval M1 PT/OT-IP Prior Functional Status Start: 06/05/24 13:09 Freq: NEEDED Status: Active Protocol: Document 06/05/24 10:10 AB (Rec: 06/05/24 13:28 AB [id number]) Medical Review Prior Functional Status Medical History Reviewed Yes Communication able to make needs known Mobility and Gait pt stated that she was modified independent with all mobilities and ambulation without AD indoors and uses a FWW for outdoor walking but uses 2 trekking pole when she is on the road per pt pt stated that she has been going for outpt PT for her balance Social History Household Members none Number of Stairs To Enter/Railing? pt lives at [facility] has 1 step to enter the house; pt usually stays on the main level of the house but has to go up a spiral staircase with B rails for showers. Home Environment Standard Height Toilet,Walk in Shower Home Equipment Four Wheel Walker,Shower Seat with Backrest,Hand Held Shower ,Grab Bars In Shower Additional Social History Comment has trekking poles M2 PT-IP Current Condition Start: 06/05/24 13:09 Freq: NEEDED Status: Active Protocol: Document 06/05/24 10:10 AB (Rec: 06/05/24 13:28 AB [id number]) Physical Therapy Current Condition Current Condition Evaluation Date 06/05/24 Treatment Diagnosis s/p fall; AMS; concussion; difficulty in walking Onset Date 06/05/24 M3 PT-IP Subjective Start: 06/05/24 13:09 Freq: NEEDED Status: Active Protocol: Document 06/05/24 10:10 AB (Rec: 06/05/24 13:28 AB [id number]) Subjective Physical Therapy Visit Type Type Initial Evaluation Visit Start Time 10:10 Visit Stop Time 10:50 Number of WOODYARD CRANE OPERATOR Visits 0 Physical Therapy Visit Comments Patient Comments agreeable to do PT Therapy Pain Assessment Pain When Pain Assessed At Rest Location head Intensity 5 Scale Used c/o a headache Pain Management Techniques Distraction,Modification of Treatment,Re-positioning, Timing of Activity with Medications M4 PT-IP Mobility and Gait Start: 06/05/24 13:09 Freq: NEEDED Status: Active Protocol: Document 06/05/24 10:10 AB (Rec: 06/05/24 13:28 AB [id number]) PT-Bed Mobility Assessment Supine to Sit Supine to Sit Standby Assistance,Head of Bed Elevated,Bedrails PT-Transfer Assessment Sit to and From Stand Sit to and from Stand Minimal Assistance,1 Person Assistance,Use of Upper Extremities Equipment Transfer Assistive Device None,Gait Belt Orthotic/Prosthetic Devices or Brace: No Transfers Transfer Destination Chair Transfer Technique Stand Step Pivot Transfer Ability Level of Assist Contact Guard Assistance,1 Person Assistance,Use of Upper Extremities Comments Mobility Comments pt supine in bed and agreeable to do PT. obtained PLOF and home set up from pt. BP in supine: 138/73. pt completed supine to sit SBA . able to sit on EOB SBA. completed sit to stand min A and max cues and ambulated in room without AD min A and cues . pt presents with an unsteady gait with LOB x 3 posteriorly requiring min A for stability . pt sat on the chair and rested. pt agreed to use FWW. sit to stand from the chair min A and max cues requiring 2 attempts to be able to stand. pt ambulated in room using FWW CGA to min A and cues. pt steadier with use of FWW but continues to have unsteady gait with slight posterior LOB . pt sat on the chair and rested. informed pt regarding use of FWW at this time even indoors and pt understood. pt agreed to do stairs. pt stated that she uses one of her trekking poles to do stairs. completed sit to stand from the chair min A and completed up/down step stool using SPC requiring mod A and max cues. pt repeated using FWW up/down step stool requiring CGA to min A and max cues. pt agreed to sit on the chair. positioned pt on the chair. call light and table placed within reach. Gait Assessment Gait Gait Assistance Required: Contact Guard Assist,Minimum Assistance Distance (Feet) 30 Able to Maintain Weight Bearing Status Yes During Gait Assistive Devices Assistive Device None,Gait Belt,Front Wheeled Walker Orthotic/Prosthetic Devices or Brace: No Gait Deviations General Gait Pattern Ataxic,Decreased Stride Length ,Decreased Feet Clearance Factors Limiting Gait Function Factors Limiting Gait Function Decreased Activity Tolerance, Decreased Strength,Difficulty Following Directions,Limited Range of Motion,Pain,Poor Balance,Poor Safety Awareness Stair Climbing Assessment Evaluation Level of Assist On Stairs Moderate Assistance,1 Person Assistance Devices Stair Climbing Assistive Devices Straight Cane,Front Wheel Walker Technique/Endurance Stair Climbing Direction Ascend and Descend Stair Climbing Technique Step to Step Number of Steps Climbed 1 Query Text: Stair Climbing Set # Repetitions (reps) 2 Comments Stair Climbing Comments pls refer to mobility section for details PT-Balance Assessment Sitting Balance and Reactions Static Sitting Balance Ability Good Dynamic Sitting Balance Ability Good Standing Balance and Reactions Static Standing Balance Ability Fair Dynamic Standing Balance Ability Poor Device Used without AD M5 PT-IP Objective Assessments Start: 06/05/24 13:09 Freq: NEEDED Status: Active Protocol: Document 06/05/24 10:10 AB (Rec: 06/05/24 13:28 AB [id number]) Orientation Orientation/Cognition Level of Alertness Alert Orientation Name,Place,Situation Safety Awareness Decreased Safety Awareness Memory Description No Deficits Noted Comments with slight confusion Gross Range of Motion Lower Extremity ROM Assessment Within Functional Limits Strength Lower Extremity Strength Assessment Within Functional Limits Muscle Tone Muscle Tone WNL Yes M6 PT-IP Treatment Start: 06/05/24 13:09 Freq: NEEDED Status: Active Protocol: Document 06/05/24 10:10 AB (Rec: 06/05/24 13:28 AB [id number]) Physical Therapy Treatment Education Education Provided Safety M7 PT-IP Assessment and Plan Start: 06/05/24 13:09 Freq: NEEDED Status: Active Protocol: Document 06/05/24 10:10 AB (Rec: 06/05/24 13:28 AB [id number]) PT Summary Assessment and Plan Potential Rehabilitation Potential Fair Status of Condition at Evaluation Evolving Summary Impairments Pain,ROM,Strength,Balance, Coordination,Sensation,Tone, Cognition,Bed Mobility, Transfers,Gait,Activity Tolerance Assessment Summary pt is an 89 y/o F who presented to the ED S/p fall. pt admitted for AMS, concussion and laceration on the scalp. pt requiring CGA to min A for transfers and ambulation using FWW. pt requiring min A for ambulation without AD and with unsteady gait with posterior LOB. recommending use of FWW at this time. pt lives alone and at this time will require assistance. pt will benefit from SNF rehab to improve overall strength, balance and independence. pt currently is a high fall risk. will continue to assess progress. Goals Bed Mobility Goal Independent Transfer Goal Independent,Front Wheeled Walker Gait Goal Independent,Front Wheel Walker Gait Distance 200 Other Goals improve transfers, ambulation without AD/ LRAD ~ 200 ft mod I up/down 1 step without AD mod I up/down 12 steps B rails mod I Days to Meet Goals 10 Frequency of Treatment Frequency Of Treatment Once a Day Treatment Plan Physical Therapy Treatment Plan Bed Mobility Training,Transfer Training,Gait Training, Therapeutic Exercise,Balance Retraining,Discharge Planning, Hot or Cold Pack,Neuromuscular Re-ed,Coordination Retraining ,Manual Therapy Precautions Other Precautions falls Recommendations To Nursing Amount of Assist Needed 1 Person Assist Discharge Recommendations PT Discharge Recommendations SNF Rehab Transportation Needs at Discharge Private Vehicle,Wheelchair/ Cabulance
--- NOTE | 2024-06-05 11:25 | PM.HP.1 ---
History of Present Illness History of Present Illness Date Patient Seen: 06/05/24 Time Patient Seen: 09:10 Chief complaint: GLF- trip slip Narrative: PT presented to ED from home with cc of fall and head laceration. She is generally vigorous elder very active who had perhaps some confusion earlier in the day but otherwise has been feeling ok. She was disoriented initially after the head injury but is improved today from report. She is hungry and feels strong enough to get out of bed. Advised to use a build manager. Will plan for PT/OT eval and echo. [facility] Social History household members: spouse Smoking Status: Former smoker alcohol intake: current Meds Home Medications and Allergies Home Medications Medication Instructions Recorded Confirmed Type levothyroxine 100 mcg tablet 100 mcg PO DAILY 06/05/24 06/05/24 History [id number] 3 cap PO 3XD 06/05/24 06/05/24 History 24,000-76,000-120,000 unit capsule,delayed rel (Creon) losartan 25 mg tablet 50 mg PO BID 06/05/24 06/05/24 History Allergies Allergy/AdvReac Type Severity Reaction Status Date / Time NSAIDS (Non-Steroidal Allergy Unknown STOMACH Unverified 03/05/18 12:59 Anti-Inflamma PAIN [NSAIDS (NON-STEROIDAL ANTI-INFLAMMA] Review of Systems Review of Systems Narrative: all systems reviewed and negative except as otherwise documented in HPI Exam Vital Signs (past 8 hours): - 06/05/24 03:30 06/05/24 03:30 06/05/24 04:00 Temperature Pulse Rate 68 69 Respiratory Rate 24 26 H Blood Pressure 159/75 H Pulse Oximetry 98 97 Oxygen Delivery Method 06/05/24 04:00 06/05/24 04:30 06/05/24 04:30 Temperature Pulse Rate 62 Respiratory Rate 30 H Blood Pressure 166/77 H 151/67 H Pulse Oximetry 95 Oxygen Delivery Method Room Air 06/05/24 05:00 06/05/24 05:00 06/05/24 05:30 Temperature Pulse Rate 63 60 Respiratory Rate 36 H Blood Pressure 161/73 H Pulse Oximetry 97 94 Oxygen Delivery Method Room Air 06/05/24 05:30 06/05/24 06:35 06/05/24 08:45 Temperature 99.1 F Pulse Rate 83 Respiratory Rate 16 Blood Pressure 182/72 H 191/84 H Pulse Oximetry 98 Oxygen Delivery Method Room Air Room Air 06/05/24 09:09 06/05/24 09:36 Temperature 97.5 F L Pulse Rate 79 79 Respiratory Rate 18 Blood Pressure 201/73 H 158/64 H Pulse Oximetry 95 Oxygen Delivery Method Oxygen Delivery Method Room Air Narrative Exam Narrative: sitting up in bed on phone HENMT Other: approx 2cm laceration to occiput scalp repaired with ana lilia looks ok no bleeding minimal pain some goosegg Resp Other: clear to auscultation bilaterally Cardio Other: regular rate, S1/S2 GI Other: soft nontender active bowel sounds Neuro Other: AAOx3, no lateralizing features, CN 2-12 intact on confrontation, moving all limbs equally, sensible speech with normal cognition. Extrem Other: no pedal edema, symmetric 5+ strength in all extremities. Objective Labs 06/04/24 20:35 06/04/24 20:35 Labs: Laboratory Results - last 24 hr 06/04/24 06/04/24 20:35 20:46 WBC 11.4 H RBC 4.34 Hgb 13.2 Hct 39.5 MCV 91.1 MCH 30.4 MCHC 33.3 RDW 13.8 Plt Count 541 H Neut % (Auto) 67.1 Lymph % (Auto) 23.1 L [place] % (Auto) 8.2 Eos % (Auto) 1.5 L Baso % (Auto) 0.1 Neut # (Auto) 7700 H Lymph # (Auto) 2600 [place] # (Auto) 900 Eos # (Auto) 200 Baso # (Auto) 0 Sodium 134 L Potassium 4.2 Chloride 101 Carbon Dioxide 28 BUN 30 H Creatinine 0.56 Estimated GFR > 60 BUN/Creatinine Ratio 53.6 H Glucose 97 Calcium 8.9 Total Bilirubin 0.4 AST 32 ALT 18 Alkaline Phosphatase 94 Ammonia < 9 L Total Protein 7.8 Albumin 4.2 Globulin 3.6 Albumin/Globulin Ratio 1.2 TSH 8.05 H Free T4 1.72 Urine RBC 0-1/hpf Urine WBC None seen Ur Squamous Epith Cells 0-1 /hpf Urine Bacteria None seen Ur Culture Indicated? Cult not indicated Vol Urine Centrifuged 10ml (spun) U Opiates 300ng/mL cut Negative Ur Oxycodone Screen Negative Urine Methadone Screen Negative Ur Barbiturates Screen Negative U Tricyclic Antidepress Negative Ur Phencyclidine Scrn Negative Ur Amphetamines Screen Negative U Methamphetamines Scrn Negative Ur MDMA Scrn (Ecstasy) Negative U Benzodiazepines Scrn Negative Urine Cocaine Screen Negative U Marijuana (THC) Screen Negative Urine pH Normal Urine Specific [place] Normal Ethyl Alcohol < 10 Ur Creatinine Normal Assessment & Plan Assessment & Plan narrative: #Ground level fall #scalp laceration without foreign body #Concussion cause of fall not known - ordering echo the TSH is a bit high otherwise workup in ED was unremarkable laceration looks ok but clearly got rattled around Will get scan and monitor for now with PT/OT eval ok to eat - up with build manager only, fall precautions #hypothyroid elevated TSH - continue home med 100mcg - may be able to f/up in outpt setting #hypertensive resume home losartan, monitor #dyspepsia may need creon prn with fatty meals dispo: admit obsv, get scans, may be able to go home with family later if stable PCP: Destiny code: DNR per polst on file DVT ppx: SCDs only d/t recent head trauma diet: general MDM: Daughter Marisol Stokes Time-Based Coding :: [TOTAL MINUTES] spent with patient and on the chart (including review of chart, obtaining history, exam, reviewing outside data, placing orders, documenting exam and treatment plan, and counseling patient) on [DATE].
--- NOTE | 2024-06-05 16:05 | OT.IP.EVAL ---
Addendum entered and electronically signed by Arlette Rodriguez OT 06/05/24 17:16: Pt scored 382 seconds with MAX vc on [place] Making Part B which implies severe deficits for visual scanning, speed of processing, executive functioning, mental flexibility and task switching. Noted slight facial drop and feel pt may benefit from MRI of her brain. Original Note: Occupational Therapy Inpatient Evaluation/Re-Eval M1 PT/OT-IP Prior Functional Status Start: 06/05/24 13:09 Freq: NEEDED Status: Active Protocol: Document 06/05/24 16:05 [facility] (Rec: 06/05/24 16:58 [facility] [id number]) Medical Review Prior Functional Status Medical History Reviewed Yes Communication able to make needs known Mobility and Gait pt stated that she was modified independent with all mobilities and ambulation without AD indoors and uses a FWW for outdoor walking but uses 2 trekking pole when she is on the road per pt pt stated that she has been going for outpt PT for her balance Activities of Daily Living and IADL's Pt states has been able to care for herself at home and that her daughters call her daily. 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 Social History Living Arrangements House Number of Stairs To Enter/Railing? pt lives at [facility] has 1 step to enter the house; pt usually stays on the main level of the house but has to go up a spiral staircase with B rails for showers. Home Environment Standard Height Toilet,Walk in Shower Home Equipment Four Wheel Walker,Shower Seat with Backrest,Hand Held Shower ,Grab Bars In Shower Additional Social History Comment has trekking poles M2 OT-IP Current Condition Start: 06/05/24 16:22 Freq: Status: Active Protocol: Document 06/05/24 16:05 [facility] (Rec: 06/05/24 16:58 [facility] [id number]) Occupational Therapy Current Condition Current Condition Evaluation Date 06/05/24 Treatment Diagnosis Frequent fall recently, altered mental status Diagnosis Onset Date 06/05/24 M3 OT- IP Subjective and Pain Start: 06/05/24 16:22 Freq: Status: Active Protocol: Document 06/05/24 16:05 [facility] (Rec: 06/05/24 16:58 [facility] [id number]) OT- Subjective Occupational Therapy Visit Type Type Initial Evaluation Visit Start Time 15:00 Visit Stop Time 16:15 Occupational Therapy Visit Comments Patient Comments Pt agreed to do OT eval. Patient/Caregiver Goals TO go home. OT Pain Assessment Pain When Pain Assessed At Rest Pain Present Pain Present Denied Pain M4 OT- IP ADL's Start: 06/05/24 16:22 Freq: Status: Active Protocol: Document 06/05/24 16:05 [facility] (Rec: 06/05/24 16:58 [facility] [id number]) OT [id number] Comments OT Self-Feeding Comments Not at meal time. OT ADL-Grooming General Evaluation Grooming Ability Standby Assistance Areas Needing Assistance Retrieving/Set-up of Grooming Items Comments OT Grooming Comments VC to find items on the sink. OT ADL-Oral Care General Eval Oral Care Ability Independent Comments Oral Care Comments Able to fo while standing with the FWW. OT ADL-Dressing General Eval Lower Body Dressing Ability Moderate Assistance Comments OT Dressing Comments Pt able to jaxon her socks while long sitting on the bed and able to lean forwards to jaxon her slippers but unsteady . At this time pt would need CGA for balance to MODA if trying to pull up clothing items over her hips. OT ADL-Toileting General Evaluation Toileting Ability Contact Guard Assistance Areas Needing Assistance Manage Clothing Comments OT Toileting Comments Assist for balance while standing to pull up her brief. OT ADL-Bathing Comments OT Bathing Comments Pt will benefit from assist due to decreased balance and will need cues for completeness of task due to decreased short term memory and working memory at this time. M5 OT- IP IADL's Start: 06/05/24 16:22 Freq: Status: Active Protocol: Document 06/05/24 16:05 [facility] (Rec: 06/05/24 16:58 [facility] [id number]) OT-Instrumental Activities of Daily Living Deficits IADL Deficits Identified Deficits Home Safety Awareness Awareness of Need for Assistance at Home Decreased Awareness Ability to Problem Solve Emergency Unable to Problem Solve Situations Home Safety Comments Pt having short term memory issues and trouble with problem solving. Medication Management Medication Management Comments At this time pt will need assist. Money Management Money Management Comments Pt will need assist. Meal Preparation Meal Preparation Comments Pt will need assist. Typing Teacher Typing Teacher Comments Pt will need assist. Driving Driving Concerns Identified Regarding Safety Driving Comments Pt states having trouble to renew her license but then admits that she has driven last week. M6 OT- IP Functional Cognition Start: 06/05/24 16:22 Freq: Status: Active Protocol: Document 06/05/24 16:05 [facility] (Rec: 06/05/24 16:58 [facility] [id number]) Cognitive Factors Limiting Selfcare Function Cognitive Ability Level of Alertness Alert,Confusional State Patient Orientation Name,Age,Birthday,Year,Place, Situation Attention Span Ability Capable of Focused Attention, Unable to Sustain Attention Ability to Follow Commands Able to Follow One Step Commands with Increased Time, Able to Follow One Step Commands with Repetition Memory Description Short Term Impaired,Engineer Third Assistant Impaired,Working Impaired Safety Awareness Underestimates Need for Assistance Problem Solving Ability Unable to Identify Errors, Needs Assist to Identify Solutions Executive Function Ability Unable to Hold Focus,Unable to Switch Focus,Unable to Filter Distractions,Unable to Make Plans,Unable to Organize Plans ,Unable to Remember Details Cognitive Tests SLUMS Pt scored 15/30 which implies dementia. Pt thought it was Saturday versus Saturday, not able to recall any of the 5 objects after time passed, only able to recall 3/5 immediately, pt not able to states 4 digit number backwards, pt not able to write the number on the clock correctly and writing on the right side of the [place] from 12 and then 1-17, pt able to answer 2/4 questions right after paragraph read. Pt has a laceration of her scalp from falling at home and may possibly had a concussion as well. Pt also having lower NA number. Cognitive Comments Cognitive Assessment Comments Pt not remembering to put on her other sock or slipper on prior to standing after being distracted. Pt not remembering to keep the FWW in front of her at all times. Pt not remembering that she adamantly wanted to brush her teeth just 5 minutes prior. Pt not remembering that the sink in outside of the bathroom. Pt having poor safety awareness for transitions to come to stand and sitting. Pt needing MAX vc for safety. OT- Vision and Hearing OT- Hearing Assessment OT- Hearing Assessment Hearing Impaired OT- Vision Assessment Visual Acuity Glasses All The Time Visual Attentiveness WFL Occular Pursuits WFL Visual Convergence WFL Visual Morales WFL Vision Assessment Comments To further assess, pt at times having difficulty to follow commands. Pt at times seemingly neglect items on the right. M7 OT- IP Mobility and Balance Start: 06/05/24 16:22 Freq: Status: Active Protocol: Document 06/05/24 16:05 [facility] (Rec: 06/05/24 16:58 [facility] [id number]) OT- Bed Mobility Assessment Supine to Sit Supine to Sit Assist Standby Assistance OT-Transfer Assessment Sit to and From Stand Sit to and from Stand Minimal Assistance,Moderate Assistance Transfers Transfer Ability Contact Guard Assistance, Minimal Assistance Technique Transfer Destination Bed,Toilet Transfer Technique Stand Step Pivot Devices Transfer Assistive Devices Gait Belt,Front Wheeled Walker Comments Mobility Comments Pt trying to come to stand and felling backwards at weight on her heels. Noted pt having tightness in her calves L > R LE and able to to gentle stretch. Pt cues to scoot forwards, get her feet pulled back and push up from the bed to stand. Pt needing YOBANY, pt will need MODA for lower surfaces. Pt admits that at home she uses a lot of momentum to get up from surfaces. OT- Balance Assessment Sitting Balance and Reactions Static Sitting Balance Ability Good Dynamic Sitting Balance Ability Fair Standing Balance and Reactions Static Standing Balance Ability Poor Dynamic Standing Balance Ability Poor M8 OT- IP Objective Assessments Start: 06/05/24 16:22 Freq: Status: Active Protocol: Document 06/05/24 16:05 [facility] (Rec: 06/05/24 16:58 [facility] [id number]) OT Gross Range of Motion Upper Extremity Range of Motion Assessment Within Functional Limits OT Strength Comments Strength Comments WFl for needs. OT- Coordination Assessment Upper Extremity Finger to Nose Test Within Functional Limits M9 OT- IP Assessment and Plan Start: 06/05/24 16:22 Freq: Status: Active Protocol: Document 06/05/24 16:05 [facility] (Rec: 06/05/24 16:58 [facility] [id number]) OT Summary Assessment and Plan Potential Rehabilitation Potential Good Analytic Complexity at Evaluation Moderate Summary OT Impairments Pain,Strength,Balance, Functional Cognition, Functional Mobility,Self- Feeding,Grooming,Dressing, Toileting,Bathing,Toilet Transfers,Shower Transfers, Activity Tolerance Progress Towards Goals Slow Progress due to Pain,Slow Progress due to Medical Issues,Slow Progress due to Activity Tolerance,Slow Progress due to Cognition Assessment Summary Pt MOD complexity and main barriers are decreased balance , decreased functional cognition and memory, steps, and poor safety awareness. Pt is a very high fall risk at this time due to decreased balance and mentation and SLUMs score of 15/30 implies dementia. Also pt has recently fallen 3 times in the past month of which the most recent one with a scalp laceration- most likley also a concussion. Pt is not safe to go home by herself as prior pt lives alone. Pt states does not want to impose on her daughters and insist that she will be safe at home. AT this time pt will need 24/7 assist with home health, SNF, versus possibly memory care. Goals Grooming Goal Standby Assistance Dressing Goal Standby Assistance Toileting Goal Standby Assistance Bathing Goal Standby Assistance Toilet Transfer Goal Standby Assistance Shower Transfer Goal Standby Assistance Days to Meet Goals 20 Frequency of Treatment Frequency Of Treatment Once a Day Treatment Plan OT Treatment Plan ADL Training,Functional Cognition Training,Functional Mobility,Patient/Family Education,Discharge Planning Discharge Recommendations OT Discharge Recommendations Home with 24/7 Assist Available,Home Health,SNF Rehab,LTAC Transportation Needs at Discharge Private Vehicle,Wheelchair/ Cabulance
[2024-06-05] MEDS: LOSARTAN 25 MG TABLET 50 MG PO (17:43)
[2024-06-06 03:00] VITALS: BP 131/60; PULSE 66; RESP 18; TEMP 36.2; O2SAT 97
[2024-06-06 05:57] LABS: Add Manual Diff / Slide Review NO; Basophils Absolute Auto 0 /uL (0-100); Basophils Percent Auto 0.4 % (0-2); Eosinophils Absolute Auto 300 /uL (0-450); Hematocrit 35.2 % (36-46); Hemoglobin 11.9 g/dL (12.0-16.0); Lymphocytes Absolute Auto 1700 /uL (1100-4500); Lymphocytes Percent Auto 20.7 % (25-40); Mean Corpuscular HGB Conc 33.7 % (30-36); Mean Corpuscular Hemoglobin 30.6 PG (26-34); Mean Corpuscular Volume 90.7 fL (80-100); Monocytes Absolute Auto 800 /uL (0-900); Monocytes Percent Auto 9.4 % (3-14); Neutrophils Absolute Auto 5500 /uL (1500-7000); Neutrophils Percent Auto 65.5 % (50-75); Platelet Count 460 X10^3/uL (150-400); Red Blood Cell Count 3.88 X10^6/uL (4.0-5.2); White Blood Cell Count 8.4 X10^3/uL (4.5-11.0)
[2024-06-06] MEDS: LEVOTHYROXINE 100 MCG TABLET PO (05:57)
[2024-06-06 06:12] LABS: Alanine Aminotransferase 14 IU/L (<35); Albumin 3.1 g/dL (3.5-5.0); Albumin Globulin Ratio 1.1 (1.0-2.8); Alkaline Phosphatase 73 U/L (38-126); Aspartate Aminotransferase 24 IU/L (14-36); BUN Creatinine Ratio 43.9 (6-22); Bilirubin Total 0.3 mg/dL (0.2-1.3); Blood Urea Nitrogen 25 mg/dL (7-17); Calcium 8.1 mg/dL (8.4-10.2); Carbon Dioxide 26 mmol/L (22-32); Chloride 104 mmol/L (98-107); Estimated Glomerular Filt Rate > 60 mL/min (>60); Globulin 2.9 g/dL (1.7-4.1); Glucose 92 mg/dL (80-110); HEMOLYSIS < 15 (0-50); Potassium 3.9 mmol/L (3.4-5.1); Sodium 131 mmol/L (137-145)
[2024-06-06 07:00] VITALS: O2SAT 98
[2024-06-06 08:00] VITALS: BP 152/68; PULSE 68; RESP 12; TEMP 35.8; O2SAT 98
[2024-06-06 09:05] VITALS: BP 154/72; PULSE 72
[2024-06-06] MEDS: LOSARTAN 25 MG TABLET 50 MG PO (09:05)
--- NOTE | 2024-06-06 10:05 | P.PN_ITS ---
Subjective Subjective Date Patient Seen: 06/06/24 Time Patient Seen: 10:05 Interval history: Patient feeling well. No concerns. No pain. No CP, SOB. No N/V. Eating well. Normal voiding. Exam Vital Signs (past 8 hours): - 06/06/24 03:00 06/06/24 07:00 06/06/24 08:00 Temperature 97.2 F L 96.4 F L Pulse Rate 66 68 Respiratory Rate 18 12 Blood Pressure 131/60 152/68 H Pulse Oximetry 97 98 98 Oxygen Delivery Method Room Air Oxygen Flow Rate 0 0 0 06/06/24 09:05 Temperature Pulse Rate 72 Respiratory Rate Blood Pressure 154/72 H Pulse Oximetry Oxygen Delivery Method Oxygen Flow Rate Oxygen Delivery Method Room Air Oxygen Flow Rate 0 Narrative Exam Narrative: GEN: NAD, well appearing, pleasant CV: RRR Pulm:normal WOB, CTAB Skin: no visible rashes, WWP Psych: normal affect Neuro: symmetric movement and stregnth Objective Labs 06/06/24 04:57 06/06/24 04:57 Labs: Laboratory Results - last 24 hr 06/06/24 04:57 WBC 8.4 RBC 3.88 L Hgb 11.9 L Hct 35.2 L MCV 90.7 MCH 30.6 MCHC 33.7 RDW 14.0 Plt Count 460 H Neut % (Auto) 65.5 Lymph % (Auto) 20.7 L [place] % (Auto) 9.4 Eos % (Auto) 4.0 Baso % (Auto) 0.4 Neut # (Auto) 5500 Lymph # (Auto) 1700 [place] # (Auto) 800 Eos # (Auto) 300 Baso # (Auto) 0 Sodium 131 L Potassium 3.9 Chloride 104 Carbon Dioxide 26 BUN 25 H Creatinine 0.57 Estimated GFR > 60 BUN/Creatinine Ratio 43.9 H Glucose 92 Calcium 8.1 L Total Bilirubin 0.3 AST 24 ALT 14 Alkaline Phosphatase 73 Total Protein 6.0 L Albumin 3.1 L Globulin 2.9 Albumin/Globulin Ratio 1.1 PFSH Social History household members: spouse Smoking Status: Former smoker alcohol intake: current Assessment & Plan Assessment and plan (1) Concussion: Qualifiers: Encounter type: subsequent encounter Loss of consciousness presence/duration: unknown LOC status Qualified Code(s): S06.0XAD - Concussion with loss of consciousness status unknown, subsequent encounter Status: Acute (2) Laceration of scalp: Qualifiers: Encounter type: subsequent encounter Qualified Code(s): S01.01XD - Laceration without foreign body of scalp, subsequent encounter Status: Acute Plan Patient is 89 yo F, PMH hypothyroidism, HTN who presented after GLF at home - admitted for AMS likely due to concussion. Mentally now cleared and likely at baseline. Underwent PT evaluation yesterday and felt unsafe to return home independently. AMS - likely due to concussion, now improved. GLF, weakness, balance disturbance - improving. -PT to evaluate again today and make home recommendations Hypothyroidism - stable, continue replacement HTN - stable, continue home medication (losartan) Dyspepsia - may need creon prn with fatty meals Thrombocytopenia - likely reactive, follow AM labs Hyponatremia - mild, likely hypovolemia given BunCr ratio - continue PO hydration, follow AM labs dispo: pending PT eval today - possible home with vs SNF PCP: Destiny code: DNR per polst on file DVT ppx: SCDs only d/t recent head trauma diet: general MDM: Daughter Marisol Stokes Time-Based Coding :: [TOTAL MINUTES] spent with patient and on the chart (including review of chart, obtaining history, exam, reviewing outside data, placing orders, documenting exam and treatment plan, and counseling patient) on [DATE]. Quality VTE Deep Vein Thrombosis/Pulmonary Embolism Present on Admission: No
--- NOTE | 2024-06-06 10:54 | CM.DANOTE ---
Initial DCP Assessment Visit Note Reviewed EMR and team rounds for status updates. Met with pt at bedside to introduce self and role, pt was found to be lucid, alert/oriented and improving overall in returning to her baseline mental status. Pt resides independently alone in her own home on [address], her dtr lives about 5-minutes away from her. Pt's dtr will also plan to transport her once she's medically cleared for d/c, which is likely later today. She denies any in-home assistance needs from DCP at this time. Payor: [facility] PCP: Dr. Dixon Pt is a 89 year-old F who presented to the ED last evening via EMS after a ground level fall and hitting her head in her yard. Dtr is also present in the ED and was able to confirm that pt is not at her baseline mentation, she is abnormally confused and oriented only to self. She did not lose consciousness after the fall, but did have quite a bit of blood from the resulting laceration. Pt is at baseline very active and is typically very cognitively intact and cogent. This morning, she is able to share how she missed questions on the mental assessment yesterday, however today she did not present as confusional at all. DCP will continue to follow should she have any further evolving assistance/resource needs, however, at this time she does not have any skilled needs for Home Heatlh or for skilled rehab. Plan is home after working with PT, either today or tomorrow. Discharge Planning/Care Management CM Discharge Assessment Start: 06/06/24 10:47 Freq: Status: Active Protocol: Document 06/06/24 10:47 [facility] (Rec: 06/06/24 10:48 [facility] [id number]) Discharge Planning Assessment Assigned Tools And Parts Attendant NADIR [place] Advance Directives? No History Provided By Patient,Medical Record Has Patient been admitted in last 30 No days? Prior Living Arrangements House Household Members none Type of transporation used prior to Relies on Others admit Independent with ADL's Yes Is patient alert and oriented? Yes Caregiver for Another No DME Already Rented / Owned FWW / Walker Comment No anticipated d/c needs at this time. Barriers to Discharge No Discharge Plan Home Transportation Arrangement Dtr Referrals Initiated None needed Whiteboard Updated in Patient Room with Yes name and ext. # of Tools And Parts Attendant Review Status In Process Please Provide Date Initial DC 06/06/24 Assessment Was Performed
--- NOTE | 2024-06-06 11:00 | PT.IPTN ---
Current Diagnoses Laceration without foreign body of scalp, subsequent encounter (06/05/24) Concussion with loss of consciousness status unknown, subsequent encounter (06/05/24) Physical Therapy Treatment Note M2 PT-IP Current Condition Start: 06/05/24 13:09 Freq: NEEDED Status: Active Protocol: Document 06/05/24 10:10 AB (Rec: 06/05/24 13:28 AB [id number]) Physical Therapy Current Condition Current Condition Evaluation Date 06/05/24 Treatment Diagnosis s/p fall; AMS; concussion; difficulty in walking Onset Date 06/05/24 M3 PT-IP Subjective Start: 06/05/24 13:09 Freq: NEEDED Status: Active Protocol: Document 06/06/24 11:00 AB (Rec: 06/06/24 11:58 AB [id number]) Subjective Physical Therapy Visit Type Type Treatment Note Visit Start Time 11:00 Visit Stop Time 11:45 Number of TIMBER SPOTTER Visits 0 Physical Therapy Visit Comments Patient Comments agreeable to do PT M4 PT-IP Mobility and Gait Start: 06/05/24 13:09 Freq: NEEDED Status: Active Protocol: Document 06/06/24 11:00 AB (Rec: 06/06/24 11:58 AB [id number]) PT-Bed Mobility Assessment Supine to Sit Supine to Sit Standby Assistance PT-Transfer Assessment Sit to and From Stand Sit to and from Stand Minimal Assistance,1 Person Assistance,Use of Upper Extremities Equipment Transfer Assistive Device Gait Belt,Front Wheeled Walker Orthotic/Prosthetic Devices or Brace: No Transfers Transfer Destination Chair Transfer Technique ambulated Transfer Ability Level of Assist Contact Guard Assistance,1 Person Assistance,Use of Upper Extremities Comments Mobility Comments pt supine in bed and agreeable to do PT. pt completed supine to sit SBA. able to sit on EOB SBA. pt easily distracted and needs cues for redirection. pt completed sit to stand min A and max cues for techniques and required 2 attempts to be able to stand. pt ambulated using FWW ~ 300 ft CGA and cues. pt tends to run into things and cued for safety. Assessed ambulation without AD and completed ~ 20 ft min A and cues for steadiness and safety. pt continues to present with unsteady gait and with LOB without AD requiring min A for recovery. Gait Assessment Gait Gait Assistance Required: Contact Guard Assist,Minimum Assistance Distance (Feet) 300 Able to Maintain Weight Bearing Status Yes During Gait Assistive Devices Assistive Device None,Gait Belt,Front Wheeled Walker Orthotic/Prosthetic Devices or Brace: No Gait Deviations General Gait Pattern Ataxic,Decreased Stride Length ,Decreased Feet Clearance Factors Limiting Gait Function Factors Limiting Gait Function Decreased Activity Tolerance, Decreased Strength,Limited Range of Motion,Poor Balance, Poor Safety Awareness M5 PT-IP Objective Assessments Start: 06/05/24 13:09 Freq: NEEDED Status: Active Protocol: Document 06/05/24 10:10 AB (Rec: 06/05/24 13:28 AB [id number]) Orientation Orientation/Cognition Level of Alertness Alert Orientation Name,Place,Situation Safety Awareness Decreased Safety Awareness Memory Description No Deficits Noted Comments with slight confusion Gross Range of Motion Lower Extremity ROM Assessment Within Functional Limits Strength Lower Extremity Strength Assessment Within Functional Limits Muscle Tone Muscle Tone WNL Yes M6 PT-IP Treatment Start: 06/05/24 13:09 Freq: NEEDED Status: Active Protocol: Document 06/06/24 11:00 AB (Rec: 06/06/24 11:58 AB [id number]) Physical Therapy Treatment Education Education Provided Safety M7 PT-IP Assessment and Plan Start: 06/05/24 13:09 Freq: NEEDED Status: Active Protocol: Document 06/06/24 11:00 AB (Rec: 06/06/24 11:58 AB [id number]) PT Summary Assessment and Plan Potential Rehabilitation Potential Fair Summary Impairments Pain,ROM,Strength,Balance, Coordination,Sensation,Tone, Cognition,Bed Mobility, Transfers,Gait,Activity Tolerance Progress Towards Goals Slow Progress - Other Assessment Summary pt requiring CGA with ambulation using FWW but requires Sander without AD. pt has decrease safety awareness and gets distracted easily. pt will benefit from SNF rehab to improve strength and function. Goals Bed Mobility Goal Independent Transfer Goal Independent,Front Wheeled Walker Gait Goal Independent,Front Wheel Walker Gait Distance 200 Other Goals improve transfers, ambulation without AD/ LRAD ~ 200 ft mod I up/down 1 step without AD mod I up/down 12 steps B rails mod I Days to Meet Goals 10 Frequency of Treatment Frequency Of Treatment Once a Day Treatment Plan Physical Therapy Treatment Plan Bed Mobility Training,Transfer Training,Gait Training, Therapeutic Exercise,Balance Retraining,Discharge Planning, Hot or Cold Pack,Neuromuscular Re-ed,Coordination Retraining ,Manual Therapy Precautions Other Precautions falls Recommendations To Nursing Amount of Assist Needed 1 Person Assist Discharge Recommendations PT Discharge Recommendations SNF Rehab Transportation Needs at Discharge Private Vehicle,Wheelchair/ Cabulance
--- NOTE | 2024-06-06 12:03 | CM.DPC ---
DCP Cont. Update: Per pt/provider request, faxed referral to [facility] with PT/OT orders. Called pt's dtr to update, she expressed understanding and will plan to transport pt home later this afternoon. Will call her doctor to update once we know when [facility] can start care.
[2024-06-06 14:00] VITALS: BP 151/76; PULSE 84; RESP 14; TEMP 36.2; O2SAT 98
--- NOTE | 2024-06-06 14:48 | P.DS_ITS ---
History of Present Illness History of Present Illness Chief complaint: GLF- trip slip Narrative: Patient is an 89 yo F with PMH HTN, hypothyroidism who presented to ER for GLF and scalp laceration. Discharge Providers Provider Date of admission: 06/05/24 08:25 Discharge Date: 06/06/24 Primary care physician: Boom Dixon MD Consults: 06/05/24 08:48 Consult to Occupational Therapy Evaluate & Treat Comment: confusion Physician Instructions: Evaluate and treat Consult to Physical Therapy Evaluate & Treat Comment: weakness Physician Instructions: Evaluate and Treat 06/05/24 09:09 Consult to Occupational Therapy Evaluate & Treat Comment: Physician Instructions: Evaluate and treat Consult to Physical Therapy Evaluate & Treat Comment: Physician Instructions: Evaluate and Treat 06/06/24 11:57 Consult to Home Health Routine Comment: PT, OT Reason For Exam: Home Health Services Discharge provider: Ekaterina Richardson MD Summary Hospital Course Hospital Course: Presented to ER for GLF. Imaging including CT head, C spine, CXR all reassuring. Labs reassuring as well. Laceration closed with ana lilia. Admitted for observation due to AMS after fall likely due to concussion. Mental status clear and returned to baseline. ECHO done that day which was also reassuring. On day of discharge, patient fully oriented and ambulated multiple laps around the hospital with walker. PT recommended SNF but patient comfortable returning home with daughter support and home health given both mentally and physically at baseline. Status at Discharge Cognitive/behavioral status at discharge: oriented and at baseline, oriented Functional status at discharge: uses cane/walker Overall status at discharge: patient is back to baseline Time Spent with Patient Time spent: Greater than 30 minutes Exam Vital Signs (past 8 hours): - 06/06/24 07:00 06/06/24 08:00 06/06/24 09:05 Temperature 96.4 F L Pulse Rate 68 72 Respiratory Rate 12 Blood Pressure 152/68 H 154/72 H Pulse Oximetry 98 98 Oxygen Delivery Method Room Air Oxygen Flow Rate 0 0 Oxygen Delivery Method Room Air Oxygen Flow Rate 0 Narrative Exam Narrative: GEN: NAD, well appearing, pleasant CV: RRR Pulm:normal WOB, CTAB Skin: no visible rashes, WWP Psych: normal affect Neuro: normal gait, symmetric movement and strength Objective Labs 06/06/24 04:57 06/06/24 04:57 Labs: Laboratory Results - last 24 hr 06/06/24 04:57 WBC 8.4 RBC 3.88 L Hgb 11.9 L Hct 35.2 L MCV 90.7 MCH 30.6 MCHC 33.7 RDW 14.0 Plt Count 460 H Neut % (Auto) 65.5 Lymph % (Auto) 20.7 L Bowman % (Auto) 9.4 Eos % (Auto) 4.0 Baso % (Auto) 0.4 Neut # (Auto) 5500 Lymph # (Auto) 1700 Bowman # (Auto) 800 Eos # (Auto) 300 Baso # (Auto) 0 Sodium 131 L Potassium 3.9 Chloride 104 Carbon Dioxide 26 BUN 25 H Creatinine 0.57 Estimated GFR > 60 BUN/Creatinine Ratio 43.9 H Glucose 92 Calcium 8.1 L Total Bilirubin 0.3 AST 24 ALT 14 Alkaline Phosphatase 73 Total Protein 6.0 L Albumin 3.1 L Globulin 2.9 Albumin/Globulin Ratio 1.1 PFSH Social History household members: none Smoking Status: Former smoker alcohol intake: current Discharge Assessment & Plan Assessment and Plan Assessment: See progress note from today for details. Discharge Plan Discharge Plan Patient Disposition: Home Discharge orders & Medications Prescriptions: Continued losartan 25 mg tablet 50 mg PO BID Creon 24,000-76,000 -120,000 unit capsule,delayed release(DR/EC) 3 cap PO 3XD levothyroxine 100 mcg tablet 100 mcg PO DAILY Follow up/Referrals: Boom Dixon MD [Primary Care Provider] - 1 Week Diet/Activity/Treatments Diet: Regular Activity: Ambulate with walker Home health set up on discharge Skin/Wound/Dressing Care Other wound treatment: Schedule follow up and staple removal in 1 week Visit Report/Discharge Packet Instructions: Concussion, How to Prevent Falls Stand Alone Forms: Patient Portal/API, Stroke Signs & Symptoms Discharge Data Primary Care Provider: Boom Dixon Attending Provider: Yoan Valencia Admnik Date/Time: 06/05/24 08:25 Quality VTE Deep Vein Thrombosis/Pulmonary Embolism Present on Admission: No IH PROFEE Charge Codes Discharge inpatient/observation: [id number]
== END 2024-06-06 16:00 | disposition home or self-care (01) ==
LOC: ED 06-05 05:54 → AC 06-05 08:26
PROVIDERS: Admitting Provider Family Medicine; Emergency Provider Emergency Medicine; Family Provider Family Medicine; PCP Family Medicine; Visit Provider Family Medicine
DX: S06.0XAA Concussion with loss of consciousness status unknown, initial encounter (principal); S01.01XA Laceration without foreign body of scalp, initial encounter; W17.89XA Other fall from one level to another, initial encounter; Y92.007 Garden or yard of unspecified non-institutional (private) residence as the place of occurrence of the external cause
CPT/HCPCS: 12001; 36415; 70450; 71045; 72125; 80053; 80305; 80320; 81003; 81015; 82140; 82962; 84439; 84443; 85025; 93005; 93306; 97116; 97129; 97162; 97166; 97530; 97535; 99283; 99284; G0378

== ENCOUNTER 2024-11-15 20:50 | Inpatient (IN) | payer MEDICARE, BC, SELFPAY ==
[2024-06-05 13:21] VITALS: BMI 19.8
[2024-11-15] VITALS (9 sets, daily range): BP systolic 133–180; BP diastolic 62–94; PULSE 64–70; RESP 16–28; TEMP 36.4; O2SAT 93–96; BMI 21.5
--- NOTE | 2024-11-15 21:00 | DI.CT.S_ITS ---
PROCEDURE: CT ANGIO HEAD AND NECK INDICATIONS: falls TECHNIQUE: After the administration of intravenous contrast, 1 mm thick sections acquired from the aortic arch through the [place] of [place]. 3-dimensional rwyiyvq-tnjyxywnz-clrewmeyoy (MIP) and/or volume rendering reformats were acquired of the central intracranial vasculature and neck separately. For radiation dose reduction, the following was used: automated exposure control, adjustment of mA and/or kV according to patient size. COMPARISON: [facility], CT, CT CERVICAL SPINE WO CON, 06/04/2024, 20:42. [facility], CR, XR CHEST 1V, 06/04/2024, 22:38. [facility], CT, CT HEAD/BRAIN WO CON, 11/15/2024, 21:02. [facility], CT, CT HEAD/BRAIN WO CON, 06/04/2024, 20:42. FINDINGS: Image quality: Diagnostic. BRAIN: See separately dictated CT head report of 11/15/2024. HEAD CT ANGIOGRAPHY: Anterior circulation: Intracranial internal carotid arteries are normal in size and flow. The flow within the paired anterior cerebral arteries is normal and symmetric. The flow within the middle cerebral arteries is normal and symmetric. The anterior communicating artery is seen. No aneurysms are seen. Posterior circulation: Slight right vertebral artery prominence. Visualized portions of the vertebral arteries demonstrate normal caliber, and join to form a normal appearing basilar artery. Flow within the posterior cerebral arteries is normal and symmetric. No aneurysms are seen. NECK CT ANGIOGRAPHY: Carotid system: The great vessels demonstrate a conventional anatomy as they arise from the aortic arch. The origins of the common carotid arteries appear patent. The common carotid arteries demonstrate normal caliber and courses. The bifurcation regions are both widely patent. There is long segment stenosis approximately 55%, with mural thrombus and calcification in the proximal internal carotid artery measuring 1.2 cm. Posterior circulation: The origins of the vertebral arteries both appear widely patent. The more superior extracranial portions of both vertebral arteries also demonstrate normal courses and calibers. They join to form a normal appearing basilar artery. Soft tissues: Partially visualized prominent mediastinal adenopathy with a right paratracheal node measuring 3.1 cm. Carinal lymph node is present measuring 2.9 cm. Bilateral effusions. Heterogeneous partially visualized right upper lobe mass measuring 5.8 x 6.7 cm. Ascending thoracic aorta measures 3.4 cm. Bones: No suspicious bony lesions. Visualized cervical spine appears normally aligned. 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 Mediastinal adenopathy bilateral effusions as well as a partially visualized left lobe mass. Overall appearance is concerning for malignancy. Further evaluation with CT chest may be obtained. Any quantitative measurements of stenosis were performed using NASCET criteria. Dictated by: Tita Bermudez M.D. on 11/15/2024 at 22:20 Approved by: Tita Bermudez M.D. on 11/15/2024 at 22:26
--- NOTE | 2024-11-15 21:00 | DI.CT.S_ITS ---
PROCEDURE: CT HEAD/BRAIN WO CON INDICATIONS: frequent falls TECHNIQUE: Noncontrast 4.5 mm thick angled axial sections acquired from the foramen magnum to the vertex, with coronal and sagittal reformats. For radiation dose reduction, the following was used: automated exposure control, adjustment of mA and/or kV according to patient size. COMPARISON: [facility], CT, CT ANGIO HEAD AND NECK, 11/15/2024, 21:02. [facility], CT, CT HEAD/BRAIN WO CON, 06/04/2024, 20:42. FINDINGS: Image quality: Diagnostic. CSF spaces: Basal cisterns are patent. No extra-axial fluid collections. The ventricles are symmetric in size and shape. Brain: No intracranial bleeds or masses. There is cerebral volume loss for age, with resultant ventricular and sulcal prominence. There are periventricular and deep white matter chronic small vessel ischemic changes. There is intracranial internal carotid artery atherosclerosis. Unchanged chronic appearing bifrontal subdural hygromas. Skull and face: Calvarium and visualized facial bones appear intact, without suspicious lesions. Sinuses: Visualized sinuses demonstrate scattered areas of mucosal thickening most prominent in the ethmoid and sphenoid sinuses. IMPRESSION: 1. No acute intracranial process. 2. Moderate atrophy and chronic microvascular ischemic changes. Dictated by: Tita Bermudez M.D. on 11/15/2024 at 21:58 Approved by: Tita Bermudez M.D. on 11/15/2024 at 21:59
--- NOTE | 2024-11-15 21:22 | PC.NURSE ---
Daughter, Chelsie, who also called EMS calls the ER and talks this RN about her mother. States for the past 2 weeks she has been extremely weak very rapidly, and is peeing out of control and her genitals hurt. Daughter says she has not been eating or drinking as much lately and is sleeping 20hrs per day as well as she is confused and babbling. Daughter says she is not a diabetic and not on blood thinners. She lives alone on [address] and her daughter checks in on her.
[2024-11-15 21:36] LABS: Add Manual Diff / Slide Review NO; Basophils Absolute Auto 0 /uL (0-100); Basophils Percent Auto 0.2 % (0-2); Eosinophils Absolute Auto 100 /uL (0-450); Eosinophils Percent Auto 0.9 % (2-4); Hematocrit 43.1 % (36-46); Hemoglobin 14.1 g/dL (12.0-16.0); Lymphocytes Absolute Auto 1000 /uL (1100-4500); Mean Corpuscular HGB Conc 32.8 % (30-36); Mean Corpuscular Hemoglobin 27.6 PG (26-34); Mean Corpuscular Volume 84.1 fL (80-100); Monocytes Absolute Auto 500 /uL (0-900); Monocytes Percent Auto 5.4 % (3-14); Neutrophils Absolute Auto 8400 /uL (1500-7000); Neutrophils Percent Auto 83.5 % (50-75); Platelet Count 499 X10^3/uL (150-400); Red Blood Cell Count 5.12 X10^6/uL (4.0-5.2); Red Cell Distribution Width 16.9 % (11.6-14.8); White Blood Cell Count 10.1 X10^3/uL (4.5-11.0)
[2024-11-15] MEDS: DEXTROSE 10 % IN WATER 100 ML 1200 ML IV (21:42)
[2024-11-15 21:48] LABS: Alanine Aminotransferase 18 IU/L (<35); Albumin 3.5 g/dL (3.5-5.0); Albumin Globulin Ratio 0.8 (1.0-2.8); Alkaline Phosphatase 100 U/L (38-126); Aspartate Aminotransferase 45 IU/L (14-36); BUN Creatinine Ratio 48.2 (6-22); Bilirubin Total 0.8 mg/dL (0.2-1.3); Blood Urea Nitrogen 40 mg/dL (7-17); Calcium 8.6 mg/dL (8.4-10.2); Carbon Dioxide 29 mmol/L (22-32); Chloride 99 mmol/L (98-107); Creatine Kinase 144 U/L (30-135); Estimated Glomerular Filt Rate > 60 mL/min (>60); Ethanol (ETOH) < 10 mg/dL; Globulin 4.3 g/dL (1.7-4.1); Glucose 83 mg/dL (80-110); HEMOLYSIS < 15 (0-50); Lactate (Lactic Acid) 2.3 mmol/L (0.7-2.1); Potassium 3.4 mmol/L (3.4-5.1); Sodium 135 mmol/L (137-145); Total Protein 7.8 g/dL (6.3-8.2)
--- NOTE | 2024-11-15 21:52 | ED_ITS ---
HPI - Altered Mental Status General Chief Complaint: Altered Mental Status Stated Complaint: slipped off sofa Time Seen by Provider: 11/15/24 21:00 Source: patient and EMS Mode of arrival: EMS History of Present Illness HPI narrative: Patient is a 89-year-old female history of hypertension hypothyroid presents today with altered mental status. She lives alone on [address] [place]. Apparently usually does okay however daughter reports that she was falling off the couch frequently. She is awake alert able to follow some commands reports that she has been chilled. Overall appears very thin and cachectic. Found to be mildly hypoglycemic with a POC glucose of 55. Reports that she was having some right eye goopy in drainage. No other chest pain or other symptoms. Daughter called the EMS for a welfare check and she was brought in Daughter states that she has been battling increasing fatigue sleepiness loss of appetite were frequent incontinence. Related Data Home Medications Medication Instructions Recorded Confirmed levothyroxine 100 mcg tablet 100 mcg PO DAILY 06/05/24 11/16/24 aomyri-ahdkzeua-ufculuj 3 cap PO 3XD Pancreatic 06/05/24 11/16/24 24,000-76,000-120,000 unit insufficiency capsule,delayed rel (Creon) losartan 25 mg tablet 50 mg PO BID 06/05/24 11/16/24 omeprazole magnesium 20 mg 20 mg PO BID 11/16/24 11/16/24 capsule,delayed release ([employer] (omeprazole)) Allergies Allergy/AdvReac Type Severity Reaction Status Date / Time NSAIDS (Non-Steroidal Allergy Unknown STOMACH Verified 11/16/24 00:25 Anti-Inflamma PAIN [NSAIDS (NON-STEROIDAL ANTI-INFLAMMA] Patient History Social History household members: none Smoking Status: Former smoker alcohol intake: current Smoking Status: Former smoker alcohol intake frequency: holidays/special occasions only Exam Initial Vital Signs Initial Vital Signs: Vital Signs Temperature 97.6 F 11/15/24 21:05 Pulse Rate 64 11/15/24 21:05 Respiratory Rate 18 11/15/24 21:05 Blood Pressure 137/81 11/15/24 21:05 Pulse Oximetry 93 11/15/24 21:05 Oxygen Delivery Method Room Air 11/15/24 21:05 GENERAL: Thin cachectic frail 89-year-old female and in [no acute] distress. HEENT: Head atraumatic,EOMI, pupils reactive, face symmetric, Dr. mucous membranes CARDIOVASCULAR: Regular rate and rhythm without murmurs, rubs or gallops. RESPIRATORY: Breath sounds equal bilaterally, no wheezes rales or rhonchi. ABDOMEN: Soft, nontender. Normoactive bowel sounds all 4 quadrants. No guarding or rebound. : Grossly incontinence with a very soiled brief EXTREMITIES: Normal range of motion, no clubbing or edema. Neurovascularly intact NEUROLOGICAL: Alert and oriented x4.Normal gait and speech. Cranial nerves II through XII grossly intact. SKIN: Warm, dry, no laceration, no petechiae, no rashes or lesions. Course Orders Ordered: ED Orders 11/15/24 21:00 CT angio head and neck Stat CT head/brain wo con Stat 11/15/24 21:01 EKG-12 Lead Stat 11/15/24 21:30 CBC Auto Diff [Complete Blood Count AUTO DIFF] Stat CMP [Comprehensive Metabolic Panel] Stat ETOH [Ethanol (ETOH)] Stat Lactate (Lactic Acid) Stat Procalcitonin Stat TSH [Thyroid Stimulating Hormone] Stat Troponin & CK Cardiac Panel Stat 11/15/24 21:53 Chest [XR chest 1V] Stat 11/15/24 21:59 EKG-12 Lead Routine 11/15/24 22:10 Ictotest Urine Stat UA Complete [Urinalysis and Microscopic] Stat Urine Culture Stat Urine Drug Screen, Rapid Stat 11/15/24 22:37 Covid-19 + FLU A/B + RSV - PCR Stat 11/15/24 22:46 Consult to ACCELERATOR OPERATOR - Internet Sales Director Stat 11/15/24 23:25 Blood Culture Stat Dextrose (D10w) 1,000 mls @ 999 mls/hr IV CONT VINNY Last Admin: 11/15/24 22:29 Dose: Not Given Documented By: RACHEL Dextrose (D10w) 1,000 mls @ 150 mls/hr IV CONT VINNY Last Infusion: 11/15/24 23:55 Dose: Infused Documented By: Admin: 11/15/24 22:31 Dose: 150 mls/hr Documented By: RACHEL Discontinued Medications Erythromycin (Erythromycin Ophth 1 Gm Oint) 1 applic EYE-RIGHT NOW ONE Stop: 11/16/24 00:29 Last Admin: 11/16/24 00:35 Dose: 1 applic Documented By: RACHEL Dextrose (D10w) 100 mls @ 1,200 mls/hr IV PRN PRN PRN Reason: Hypoglycemia Dextrose (D10w) 100 mls @ 1,200 mls/hr IV NOW ONE Stop: 11/15/24 21:20 Last Infusion: 11/15/24 21:48 Dose: Infused Documented By: Admin: 11/15/24 21:42 Dose: 1,200 mls/hr Documented By: RACHEL Ceftriaxone Sodium 1,000 mg/ (Sodium Chloride) 100 mls @ 200 mls/hr IV NOW ONE Stop: 11/16/24 00:38 Last Infusion: 11/16/24 01:33 Dose: Infused Documented By: Admin: 11/16/24 00:48 Dose: 200 mls/hr Documented By: RACHEL Vital Signs Vital signs: Vital Signs - 8 hr 11/15/24 22:00 11/15/24 22:08 11/15/24 22:08 Pulse Rate 70 69 Respiratory Rate 28 H 16 Blood Pressure 180/89 H Pulse Oximetry 95 94 Oxygen Delivery Method 11/15/24 22:15 11/15/24 22:30 11/15/24 23:01 Pulse Rate 68 Respiratory Rate 21 Blood Pressure 163/72 H 173/94 H Pulse Oximetry Oxygen Delivery Method 11/15/24 23:04 11/15/24 23:04 11/15/24 23:30 Pulse Rate 67 66 Respiratory Rate 23 17 Blood Pressure 133/62 Pulse Oximetry 94 Oxygen Delivery Method Room Air 11/15/24 23:52 11/15/24 23:52 11/16/24 00:00 Pulse Rate 66 Respiratory Rate 21 Blood Pressure 163/69 H 148/67 H Pulse Oximetry 96 Oxygen Delivery Method 11/16/24 00:00 11/16/24 00:15 11/16/24 00:15 Pulse Rate 67 64 Respiratory Rate 14 Blood Pressure 143/65 H Pulse Oximetry 95 95 Oxygen Delivery Method Room Air 11/16/24 00:30 11/16/24 00:30 11/16/24 00:45 Pulse Rate 71 Respiratory Rate Blood Pressure 132/63 108/54 L Pulse Oximetry 95 Oxygen Delivery Method 11/16/24 00:45 11/16/24 01:00 11/16/24 01:00 Pulse Rate 71 68 Respiratory Rate 20 22 Blood Pressure 121/57 L Pulse Oximetry 93 96 Oxygen Delivery Method Room Air MDM - Altered Mental Status Lab Data 11/15/24 21:30 11/15/24 21:30 Labs: Lab Results 11/15/24 11/15/24 11/15/24 Range/Units 21:30 22:10 22:10 WBC 10.1 (4.5-11.0) X10^3/uL RBC 5.12 (4.0-5.2) X10^6/uL Hgb 14.1 (12.0-16.0) g/dL Hct 43.1 (36-46) % MCV 84.1 (80-100) fL MCH 27.6 (26-34) PG MCHC 32.8 (30-36) % RDW 16.9 H (11.6-14.8) % Plt Count 499 H (150-400) X10^3/uL Neut % (Auto) 83.5 H (50-75) % Lymph % (Auto) 10.0 L (25-40) % [place] % (Auto) 5.4 (3-14) % Eos % (Auto) 0.9 L (2-4) % Baso % (Auto) 0.2 (0-2) % Neut # (Auto) 8400 H (5088-7818) /uL Lymph # (Auto) 1000 L (0133-4205) /uL [place] # (Auto) 500 (0-900) /uL Eos # (Auto) 100 (0-450) /uL Baso # (Auto) 0 (0-100) /uL Sodium 135 L (137-145) mmol/L Potassium 3.4 (3.4-5.1) mmol/L Chloride 99 (98-107) mmol/L Carbon Dioxide 29 (22-32) mmol/L BUN 40 H (7-17) mg/dL Creatinine 0.83 (0.52-1.04) mg/dL Estimated GFR > 60 (>60) mL/min BUN/Creatinine Ratio 48.2 H (6-22) Glucose 83 (80-110) mg/dL Lactate 2.3 H (0.7-2.1) mmol/L Calcium 8.6 (8.4-10.2) mg/dL Total Bilirubin 0.8 (0.2-1.3) mg/dL AST 45 H (14-36) IU/L ALT 18 (<35) IU/L Alkaline Phosphatase 100 (38-126) U/L Total Creatine Kinase 144 H (30-135) U/L Troponin I < 0.012 (0.01-0.034) ng/mL Total Protein 7.8 (6.3-8.2) g/dL Albumin 3.5 (3.5-5.0) g/dL Globulin 4.3 H (1.7-4.1) g/dL Albumin/Globulin Ratio 0.8 L (1.0-2.8) Procalcitonin 0.129 (<0.5) ng/mL TSH 74.9 H (0.47-4.68) uIU/mL Urine Color Yellow Urine Appearance Sl cloudy Urine pH 5.5 Normal (4.5-8.0) Ur Specific [place] 1.020 (1.000-1.035) Urine Protein 1+ H (Negative) Urine Glucose (UA) Negative (Negative) g/dL Urine Ketones Trace H (NEGATIVE) Urine Occult Blood Trace-intact (Negative) Urine Nitrate Negative (Negative) Urine Bilirubin 1+ H (NEGATIVE) Ur Bilirubin Confirm Negative (Negative) Urine Urobilinogen 1.0 (0.2) E.U./dL Ur Leukocyte Esterase Trace H (NEGATIVE) Urine RBC 0-1/hpf (0-5/HPF) Urine WBC 30-100/hpf H (0-5/HPF) Ur Squamous Epith Cells 0-1 /hpf (0-5/HPF) Calcium Oxalate Crystal Few H Urine Bacteria Many (>30) H (None) Hyaline Casts 0-1/lpf (None) Granular Casts 0-1/lpf (None) WBC Casts 0-1/lpf (None) Urine Mucus 3+ H (Negative) Ur Culture Indicated? Specimen cultured Vol Urine Centrifuged 10ml (spun) U Opiates 300ng/mL cut Negative (Negative) Ur Oxycodone Screen Negative (Negative) Urine Methadone Screen Negative (Negative) Ur Barbiturates Screen Negative (Negative) U Tricyclic Antidepress Negative (Negative) Ur Phencyclidine Scrn Negative (Negative) Ur Amphetamines Screen Negative (Negative) U Methamphetamines Scrn Negative (Negative) Ur MDMA Scrn (Ecstasy) Negative (Negative) U Benzodiazepines Scrn Negative (Negative) Urine Cocaine Screen Negative (Negative) U Marijuana (THC) Screen Negative (Negative) Urine Specific [place] Normal (Normal) Ethyl Alcohol < 10 ( - 10) mg/dL Ur Creatinine Normal (Normal) SARS-CoV-2 (PCR) (Negative) Influenza A (RT-PCR) (NEGATIVE) Influenza B (RT-PCR) (NEGATIVE) RSV (PCR) (Negative) 11/15/24 11/16/24 Range/Units 22:37 00:11 WBC (4.5-11.0) X10^3/uL RBC (4.0-5.2) X10^6/uL Hgb (12.0-16.0) g/dL Hct (36-46) % MCV (80-100) fL MCH (26-34) PG MCHC (30-36) % RDW (11.6-14.8) % Plt Count (150-400) X10^3/uL Neut % (Auto) (50-75) % Lymph % (Auto) (25-40) % [place] % (Auto) (3-14) % Eos % (Auto) (2-4) % Baso % (Auto) (0-2) % Neut # (Auto) (8959-1761) /uL Lymph # (Auto) (7595-5557) /uL [place] # (Auto) (0-900) /uL Eos # (Auto) (0-450) /uL Baso # (Auto) (0-100) /uL Sodium (137-145) mmol/L Potassium (3.4-5.1) mmol/L Chloride (98-107) mmol/L Carbon Dioxide (22-32) mmol/L BUN (7-17) mg/dL Creatinine (0.52-1.04) mg/dL Estimated GFR (>60) mL/min BUN/Creatinine Ratio (6-22) Glucose (80-110) mg/dL Lactate 1.8 (0.7-2.1) mmol/L Calcium (8.4-10.2) mg/dL Total Bilirubin (0.2-1.3) mg/dL AST (14-36) IU/L ALT (<35) IU/L Alkaline Phosphatase (38-126) U/L Total Creatine Kinase (30-135) U/L Troponin I (0.01-0.034) ng/mL Total Protein (6.3-8.2) g/dL Albumin (3.5-5.0) g/dL Globulin (1.7-4.1) g/dL Albumin/Globulin Ratio (1.0-2.8) Procalcitonin (<0.5) ng/mL TSH (0.47-4.68) uIU/mL Urine Color Urine Appearance Urine pH (4.5-8.0) Ur Specific [place] (1.000-1.035) Urine Protein (Negative) Urine Glucose (UA) (Negative) g/dL Urine Ketones (NEGATIVE) Urine Occult Blood (Negative) Urine Nitrate (Negative) Urine Bilirubin (NEGATIVE) Ur Bilirubin Confirm (Negative) Urine Urobilinogen (0.2) E.U./dL Ur Leukocyte Esterase (NEGATIVE) Urine RBC (0-5/HPF) Urine WBC (0-5/HPF) Ur Squamous Epith Cells (0-5/HPF) Calcium Oxalate Crystal Urine Bacteria (None) Hyaline Casts (None) Granular Casts (None) WBC Casts (None) Urine Mucus (Negative) Ur Culture Indicated? Vol Urine Centrifuged U Opiates 300ng/mL cut (Negative) Ur Oxycodone Screen (Negative) Urine Methadone Screen (Negative) Ur Barbiturates Screen (Negative) U Tricyclic Antidepress (Negative) Ur Phencyclidine Scrn (Negative) Ur Amphetamines Screen (Negative) U Methamphetamines Scrn (Negative) Ur MDMA Scrn (Ecstasy) (Negative) U Benzodiazepines Scrn (Negative) Urine Cocaine Screen (Negative) U Marijuana (THC) Screen (Negative) Urine Specific [place] (Normal) Ethyl Alcohol ( - 10) mg/dL Ur Creatinine (Normal) SARS-CoV-2 (PCR) Negative (Negative) Influenza A (RT-PCR) Flu a negative (NEGATIVE) Influenza B (RT-PCR) Flu b negative (NEGATIVE) RSV (PCR) Negative (Negative) Point of Care Testing Glucose POC [address] scan - head: Radiologist's Impression: PROCEDURE: CT HEAD/BRAIN WO CON INDICATIONS: frequent falls TECHNIQUE: Noncontrast 4.5 mm thick angled axial sections acquired from the foramen magnum to the vertex, with coronal and sagittal reformats. For radiation dose reduction, the following was used: automated exposure control, adjustment of mA and/or kV according to patient size. COMPARISON: [facility], CT, CT ANGIO HEAD AND NECK, 11/15/2024, 21:02. [facility], CT, CT HEAD/BRAIN WO CON, 06/04/2024, 20:42. FINDINGS: Image quality: Diagnostic. CSF spaces: Basal cisterns are patent. No extra-axial fluid collections. The ventricles are symmetric in size and shape. Brain: No intracranial bleeds or masses. There is cerebral volume loss for age, with resultant ventricular and sulcal prominence. There are periventricular and deep white matter chronic small vessel ischemic changes. There is intracranial internal carotid artery atherosclerosis. Unchanged chronic appearing bifrontal subdural hygromas. Skull and face: Calvarium and visualized facial bones appear intact, without suspicious lesions. Sinuses: Visualized sinuses demonstrate scattered areas of mucosal thickening most prominent in the ethmoid and sphenoid sinuses. IMPRESSION: 1. No acute intracranial process. 2. Moderate atrophy and chronic microvascular ischemic changes. Dictated by: Tita Bermudez M.D. on 11/15/2024 at 21:58 CTA - brain/neck: Radiologist's Impression: PROCEDURE: CT ANGIO HEAD AND NECK INDICATIONS: falls TECHNIQUE: After the administration of intravenous contrast, 1 mm thick sections acquired from the aortic arch through the [place]. 3-dimensional wzkwbjz-hybhfgvnz-tsoqeciyyw (MIP) and/or volume rendering reformats were acquired of the central intracranial vasculature and neck separately. For radiation dose reduction, the following was used: automated exposure control, adjustment of mA and/or kV according to patient size. COMPARISON: [facility], CT, CT CERVICAL SPINE WO CON, 06/04/2024, 20:42. [facility], CR, XR CHEST 1V, 06/04/2024, 22:38. [facility], CT, CT HEAD/BRAIN WO CON, 11/15/2024, 21:02. [facility], CT, CT HEAD/BRAIN WO CON, 06/04/2024, 20:42. FINDINGS: Image quality: Diagnostic. BRAIN: See separately dictated CT head report of 11/15/2024. HEAD CT ANGIOGRAPHY: Anterior circulation: Intracranial internal carotid arteries are normal in size and flow. The flow within the paired anterior cerebral arteries is normal and symmetric. The flow within the middle cerebral arteries is normal and symmetric. The anterior communicating artery is seen. No aneurysms are seen. Posterior circulation: Slight right vertebral artery prominence. Visualized portions of the vertebral arteries demonstrate normal caliber, and join to form a normal appearing basilar artery. Flow within the posterior cerebral arteries is normal and symmetric. No aneurysms are seen. NECK CT ANGIOGRAPHY: Carotid system: The great vessels demonstrate a conventional anatomy as they arise from the aortic arch. The origins of the common carotid arteries appear patent. The common carotid arteries demonstrate normal caliber and courses. The bifurcation regions are both widely patent. There is long segment stenosis approximately 55%, with mural thrombus and calcification in the proximal internal carotid artery measuring 1.2 cm. Posterior circulation: The origins of the vertebral arteries both appear widely patent. The more superior extracranial portions of both vertebral arteries also demonstrate normal courses and calibers. They join to form a normal appearing basilar artery. Soft tissues: Partially visualized prominent mediastinal adenopathy with a right paratracheal node measuring 3.1 cm. Carinal lymph node is present measuring 2.9 cm. Bilateral effusions. Heterogeneous partially visualized right upper lobe mass measuring 5.8 x 6.7 cm. Ascending thoracic aorta measures 3.4 cm. Bones: No suspicious bony lesions. Visualized cervical spine appears normally aligned. 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 Mediastinal adenopathy bilateral effusions as well as a partially visualized left lobe mass. Overall appearance is concerning for malignancy. Further evaluation with CT chest may be obtained. Any quantitative measurements of stenosis were performed using NASCET criteria. Dictated by: Tita Bermudez M.D. on 11/15/2024 at 22:20 Chest x-ray: Radiologist's Impression: PROCEDURE: XR CHEST 1V INDICATIONS: altered TECHNIQUE: One view of the chest was acquired. COMPARISON: [facility], XR CHEST 1V, 06/04/2024, 22:38. FINDINGS: Surgical changes and devices: None. Lungs and pleura: Minimal right left pleural effusion Mediastinum: Mediastinal contours appear normal. Heart size is enlarged. Bones and chest wall: No suspicious bony lesions. Overlying soft tissues appear unremarkable. IMPRESSION: Bilateral effusions, left greater than right. Underlying areas of pneumonia/atelectasis/mass lesion cannot be excluded. Recommend interval follow-up to document resolution. Dictated by: Tita Bermudez M.D. on 11/15/2024 at 22:32 ECG Data Attestation: I personally reviewed and interpreted this ECG as follows: Interpretation: Low voltage sinus rhythm rate 70 ND interval 182 QRS [address] changes the definite artifact noted MDM Narrative Medical decision making narrative: MDM CC: Weakness confusion Complicating co-morbidities: Lives alone elderly hypothyroid Data collected from: Daughter and EMS Medical records reviewed: Patient was admitted to the hospital June 05 2024 for altered mental status. The to have a concussion after sustained fall she was admitted for observation ultimately mental status improved Differential considered: Intracranial hemorrhage rhabdomyolysis sepsis Toxicology failure to thrive Exam documented above, pertinent findings include: Thin cachectic 81-year-old female with soiled brief and foul-smelling urine no obvious sign of trauma breath sounds are equal working all extremities mildly confused no obvious facial droop Lab Test results independently reviewed as above. Pertinent findings: TSH 74.9 Glucose 83 WBC 10.1, hemoglobin 14.1 hematocrit 43 platelets 499 Sodium 135 potassium 3.4 chloride 90 not in carbon dioxide 29 BUN 40 creatinine 0.83 Lactate 2.3--> 1.8 Bili 0.8 AST 45 ALT 18 alk-phos 100 CPK 144 troponin negative Independently reviewed EKG as above No ischemia Imaging studies independently reviewed: Chest x-ray shows bilateral effusions left greater than right Consultations: Dr. Bradley updated on patient's symptoms test results and accepts Treatments: Dextrose 10, Rocephin Re-evaluations: Patient glucose improving she remains alert oriented Discussion: Patient 81-year-old female presenting today with a variety of symptoms. He was able to follow commands. She does have an obvious right conjunctivitis but not causing her issues. She was found to have significantly elevated TSH of all 75. I suspect that her symptoms related to this and a mild myxedema coma. She does have significant bacteria and leuks in her urine she was quite soiled in saturated with urine. She does likely have a UTI but does not look overtly septic. She overall appears very weak. Imaging of her head does not show any intracranial injury or abnormality. Chest x-ray does show pleural effusion left greater than right but she was not hypoxic or new shortness of breath. Discharge Plan Departure Patient Disposition: Admitted as Observation Clinical Impression: Myxedema coma, Hypoglycemia, Acute UTI, Conjunctivitis Admit Date/Time: 11/16/24 01:12 Admit Provider: Veronika Rajan
--- NOTE | 2024-11-15 21:58 | EKG_ITS ---
[facility] [address] [place] [address] Test Date: 2024-11-15 Pat Name: Liliya Stokes Department: [facility] Room: Gender: Female Senior [employer] Soa Developer: : 1935 Requested By: Order Number: [id number] Reading MD: Kevin Tubbs Measurements Intervals [place] Rate: 70 P: 90 [place]: 182 QRS: 34 QRSD: 88 T: 244 QT: 376 QTc: 406 Interpretive Statements Normal sinus rhythm Possible Left atrial enlargement Minimal voltage criteria for LVH, may be normal variant ( [place] product ) Nonspecific ST and T wave abnormality Electronically Signed On 11-16-2024 11:20:30 PST by Kevin Tubbs
--- NOTE | 2024-11-15 21:59 | EKG_ITS ---
[place] [id number] [place] [id number] Test Date: 2024-11-15 Pat Name: Liliya Stokes Department: [facility] Room: Gender: Female Engagement Specialist: : 1935 Requested By: Order Number: [id number] Reading MD: Kevin Tubbs Measurements Intervals [place] Rate: 70 P: 29 ND: 178 QRS: 26 QRSD: 88 T: -27 QT: 424 QTc: 457 Interpretive Statements Undetermined rhythm Minimal voltage criteria for LVH, may be normal variant ( [place] product ) Cannot rule out Inferior infarct , age undetermined Electronically Signed On 11-16-2024 11:20:41 PST by Kevin Tubbs
[2024-11-15 22:01] LABS: Troponin I < 0.012 ng/mL (0.01-0.034)
--- NOTE | 2024-11-15 22:16 | PC.NURSE ---
SUMMER Goyal and I were attempting to clean up this pt as there was a foul odor, she had on two pairs of depends and what appeared to be an over-soiled incontinent pad in place. while removing the depends the pad disintegrated and large clumps of the pad residue was stuck on her behind and back. Once i removed everything soiled I noticed two open wounds that were not bleeding near her crack, RN/ aware. I then assisted the nurse with an in&out catheter and we sent her urine to lab. Pt is now in a clean brief.
--- NOTE | 2024-11-15 22:19 | PC.NURSE ---
Addendum entered by Jyotsna Sena R.N. 11/15/24 22:29: Verbal order changed to D10 in water at 150 mls/hr. Original Note: After provider made aware of BS of 45 she gives verbal order for the remainder of the 250 ml bag to run in. This RN confirms [facility] provider Pascual want remainder of 250 mls bag to be infused. MAR to reflect.
[2024-11-15 22:21] LABS: Appearance Urine UA SL CLOUDY; Bilirubin Urine UA 1+ (NEGATIVE); Color Urine UA YELLOW; Glucose Urine UA NEGATIVE (Negative); Ketones Urine UA TRACE (NEGATIVE); Leukocyte Esterase Urine UA TRACE (NEGATIVE); Nitrite Urine UA NEGATIVE (Negative); Occult Blood Urine UA TRACE-INTACT (Negative); Protein Urine UA 1+ (Negative)
[2024-11-15 22:22] LABS: pH Urine UA 5.5 (4.5-8.0)
[2024-11-15 22:23] LABS: Procalcitonin 0.129 ng/mL (<0.5)
[2024-11-15 22:24] LABS: Ur Creatinine Normal (Normal); Ur Specific Gravity Normal (Normal); Urine Amphetamines Negative (Negative); Urine Barbiturates Negative (Negative); Urine Benzodiazepines Negative (Negative); Urine Cocaine Negative (Negative); Urine MDMA Negative (Negative); Urine Methadone Negative (Negative); Urine Methamphetamines Negative (Negative); Urine Opiates Negative (Negative); Urine Oxycodone Negative (Negative); Urine Phencyclidine Negative (Negative); Urine THC Negative (Negative); Urine Tricyclic Antidepressant Negative (Negative); Urine pH Normal (Normal)
[2024-11-15 22:25] LABS: Ictotest Urine Negative (Negative); Urine Volume 10mL (spun)
[2024-11-15 22:27] LABS: WBC Urine 30-100/HPF (0-5/HPF)
[2024-11-15 22:28] LABS: RBC Urine 0-1/HPF (0-5/HPF)
[2024-11-15 22:29] LABS: Bacteria Urine Many (>30); Granular Casts Urine 0-1/LPF; Hyaline Casts Urine 0-1/LPF; Squamous Epithelial Cell Urine 0-1 /HPF (0-5/HPF); White Blood Cell Casts Urine 0-1/LPF
[2024-11-15 22:30] LABS: Calcium Oxalate Crystals Urine Few; Mucus Urine 3+ (Negative)
[2024-11-15 22:31] LABS: Culture Indicated Urine Specimen Cultured
[2024-11-15] MEDS: DEXTROSE 10 % IN WATER 1,000 ML 150 ML IV (22:31)
[2024-11-15 22:37] LABS: Thyroid Stimulating Hormone 74.9 uIU/mL (0.47-4.68)
--- NOTE | 2024-11-15 22:49 | PC.NURSE ---
While helping change patient's brief with YARDAGE CONTROL OPERATOR FORMING's this RN notes redness to bottom that blanches in some spots and does not toward the anus. She also has 2 small blister like wounds near her anus. Brief is completely saturated, along with her clothes and blanket that is from home. Part of brief is stuck to her bottom. Pt cleaned, new brief applied and purewick put in place.
[2024-11-15 23:09] LABS: Reflexed Lactate in 2 Hours Y
[2024-11-15 23:21] LABS: Influenza A - CEPHEID Flu A NEGATIVE (NEGATIVE); Influenza B - CEPHEID Flu B NEGATIVE (NEGATIVE); Respiratory Syncytial Virus Negative (Negative)
[2024-11-15 23:22] LABS: COVID-19 CEPHEID 4-PLEX PCR Negative (Negative)
--- NOTE | 2024-11-15 23:55 | PC.NURSE ---
Addendum entered by Alba Mccracken R.N. 11/15/24 23:57: unable to obtain second lactate and second set of cultures Original Note: attempted multiple blood draws on pt's left arm. able to enter vein but unable to draw blood.
[2024-11-16] VITALS (13 sets, daily range): BP systolic 98–148; BP diastolic 41–67; PULSE 64–84; RESP 14–22; TEMP 36–36.6; O2SAT 93–98; BMI 17.7
--- NOTE | 2024-11-16 00:14 | PC.NURSE ---
This RN stop IV dextrose infusion and notices LEFT AC 20 G IV needs to be tightened slightly. Once tightened this RN is able to draw off some blood for second set blood cultures and lactate.
[2024-11-16 00:27] LABS: Lactate 2HR (Lactic Acid Rflx) 1.8 mmol/L (0.7-2.1)
[2024-11-16] MEDS: ERYTHROMYCIN OPHTH 1 GM OINT 1 APPLIC EYE-RIGHT (00:35)
[2024-11-16] MEDS: cefTRIAXone 1,000 MG in SODIUM CHLORIDE 0.9% 100 ML 200 MG IV (00:48)
--- NOTE | 2024-11-16 06:35 | PC.NURSE ---
NOC: During report, ED RN mentioned that pt started coughing aggressively after taking a sip of water. Pt stated to this RN during assessment that sometimes she has issues swallowing and deals with it by slurping but that she doesn't like to drink much. Pt may benefit from a speech therapy swallow eval.
--- NOTE | 2024-11-16 10:21 | OT.IP.EVAL ---
Occupational Therapy Inpatient Evaluation/Re-Eval M1 PT/OT-IP Prior Functional Status Start: 11/16/24 10:22 Freq: NEEDED Status: Active Protocol: Document 11/16/24 10:22 CGR (Rec: 11/16/24 10:36 R [id number]) Medical Review Prior Functional Status Medical History Reviewed Yes Communication Pt is an effective verbal communicator. Mobility and Gait Pt was MOD I with use of a 2WW for outside and IND for mobility in the home without AD. Activities of Daily Living and IADL's Pt was IND in all ADLs and her daughter who lives near her assists with food prep, and grocery shopping. Social History Household Members none Living Arrangements House Number of Floors (Floors) Two Floors Number of Stairs To Enter/Railing? 1 step to enter and spiral stair case up to second floor where the only bathing option is. Home Environment Standard Height Toilet,Walk in Shower Home Equipment Front Wheel Walker,Four Wheel Walker,Shower Seat with Backrest,Hand Held Shower,Grab Bars In Shower Employment Status Retired M2 OT-IP Current Condition Start: 11/16/24 10:22 Freq: Status: Active Protocol: Document 11/16/24 10:22 CGR (Rec: 11/16/24 10:36 R [id number]) Occupational Therapy Current Condition Current Condition Evaluation Date 11/16/24 Treatment Diagnosis fall from couch, confusion, UTI Diagnosis Onset Date 11/16/24 M3 OT- IP Subjective and Pain Start: 11/16/24 10:22 Freq: Status: Active Protocol: Document 11/16/24 10:22 CGR (Rec: 11/16/24 10:36 R [id number]) OT- Subjective Occupational Therapy Visit Type Type Initial Evaluation Visit Start Time 09:53 Visit Stop Time 10:21 Occupational Therapy Visit Comments Patient Comments I am starving OT Pain Assessment Pain When Pain Assessed At Rest Pain Present Pain Present Denied Pain M4 OT- IP ADL's Start: 11/16/24 10:22 Freq: Status: Active Protocol: Document 11/16/24 10:22 CGR (Rec: 11/16/24 10:36 R [id number]) OT CCU-Bsvt-Sznvobv General Evaluation Self-Feeding Ability Independent Comments OT Self-Feeding Comments oatmeal provided by this hand sign writer after oking with nursing. OT ADL-Grooming Comments OT Grooming Comments declined in preference to eat OT ADL-Oral Care Comments Oral Care Comments declined in preference to eat OT ADL-Dressing Comments OT Dressing Comments not performed, pt already with socks donned OT ADL-Toileting Comments OT Toileting Comments pt declined need OT ADL-Bathing Comments OT Bathing Comments not performed M5 OT- IP IADL's Start: 11/16/24 10:22 Freq: Status: Active Protocol: Document 11/16/24 10:22 CGR (Rec: 11/16/24 10:36 CGR [id number]) OT-Instrumental Activities of Daily Living Deficits IADL Deficits Identified No Deficits Home Safety Awareness Ability to Problem Solve Emergency Unable to Problem Solve Situations Medication Management Medication Management Comments concerns regarding pt's ability to perform Money Management Money Management Comments concerns regarding pt's ability to perform Meal Preparation Meal Preparation Caregiver Provides Assist Meal Preparation Comments daughter cooks/meal preps Feather Shaper Feather Shaper Comments concerns regarding pt's ability to perform Driving Driving Comments pt states that she can drive but hasn't been recently M6 OT- IP Functional Cognition Start: 11/16/24 10:22 Freq: Status: Active Protocol: Document 11/16/24 10:22 CGR (Rec: 11/16/24 10:36 CGR [id number]) Cognitive Factors Limiting Selfcare Function Cognitive Ability Level of Alertness Alert,Confusional State Patient Orientation Name,Month,Place Attention Span Ability Capable of Focused Attention, Capable of Sustained Attention Ability to Follow Commands Able to Follow One Step Commands with Increased Time, Able to Follow One Step Commands with Repetition Cognitive Comments Cognitive Assessment Comments Pt states that she is at [facility] in the basement on [facility]. Then clairified that [facility] is in [place]. Pt states it is 1922, and November 07. OT- Vision and Hearing OT- Hearing Assessment OT- Hearing Assessment WFL OT- Vision Assessment Visual Acuity Glasses All The Time Visual Attentiveness WFL Occular Pursuits WFL M7 OT- IP Mobility and Balance Start: 11/16/24 10:22 Freq: Status: Active Protocol: Document 11/16/24 10:22 CGR (Rec: 11/16/24 10:36 CGR [id number]) OT- Bed Mobility Assessment Supine to Sit Supine to Sit Assist Standby Assistance,Head of Bed Elevated,Bedrails Scooting Scooting to Edge of Bed Standby Assistance,Head of Bed Elevated,Bedrails OT-Transfer Assessment Sit to and From Stand Sit to and from Stand Minimal Assistance Transfers Transfer Ability Minimal Assistance Technique Transfer Destination Bed,Chair Transfer Technique Stand Step Pivot Devices Transfer Assistive Devices Gait Belt,Front Wheeled Walker Comments Mobility Comments Pt transfered with min a mostly for use of walker. OT- Balance Assessment Sitting Balance and Reactions Static Sitting Balance Ability Good Dynamic Sitting Balance Ability Good M8 OT- IP Objective Assessments Start: 11/16/24 10:22 Freq: Status: Active Protocol: Document 11/16/24 10:22 CGR (Rec: 11/16/24 10:36 CGR [id number]) OT Gross Range of Motion Upper Extremity Range of Motion Assessment Within Functional Limits OT Strength Comments Strength Comments grossly 4/5 OT- Coordination Assessment Upper Extremity Finger to Nose Test Within Functional Limits Finger Tapping Test Within Functional Limits Comments Coordination Comments Pt states she is concerned about her ability to use her right hand. She has a hx of a tendon issue that has been fixed per pt. She was able to perform feeding, opening containers etc without difficulty. OT-Muscle Tone Assessment Muscle Tone WNL Yes OT Sensation Assessment Edema Edema Present Edema Comments slight to BLE M9 OT- IP Assessment and Plan Start: 11/16/24 10:22 Freq: Status: Active Protocol: Document 11/16/24 10:22 CGR (Rec: 11/16/24 10:36 CGR [id number]) OT Summary Assessment and Plan Potential Rehabilitation Potential Excellent Analytic Complexity at Evaluation Moderate Summary OT Impairments Strength,Balance,Functional Cognition,Functional Mobility, Grooming,Dressing,Toileting, Bathing,Toilet Transfers, Shower Transfers,Activity Tolerance Progress Towards Goals Progressing Toward Goals Assessment Summary Pt presents as a moderate complexity evaluation s/p admit for AMS and UTI with fall off couch. Pt participated in transfer to chair and requesting to eat. Obtained oatmeal with ensure for patient and she feeds self without difficulty. Pt appears slightly confused and would be appropriate for follow up SLUMS once labs look a bit better. Most recent SLUMS on recorded . Will continue to benefit from therapy services. Pt may need more assist at her baseline given her cognition decline. At this time, recommendation is for SNF. However, she would likely be safe for discharge home with family if they could provide 24 hour assist. Goals Grooming Goal Independent Dressing Goal Independent Toileting Goal Independent Bathing Goal Independent Toilet Transfer Goal Independent Shower Transfer Goal Independent Days to Meet Goals 10 Frequency of Treatment Other frequency 5x a week Treatment Plan OT Treatment Plan ADL Training,Functional Cognition Training,Functional Mobility,Patient/Family Education,Discharge Planning Other Treatment Recommendations and Next ADls standing, shower, Treatment Focus toileting, dressing. Discharge Recommendations OT Discharge Recommendations Home vs SNF Transportation Needs at Discharge Private Vehicle
--- NOTE | 2024-11-16 12:29 | PT.IIE ---
Physical Therapy Inpatient Evaluation/Re-Eval M1 PT/OT-IP Prior Functional Status Start: 11/16/24 10:22 Freq: NEEDED Status: Active Protocol: Document 11/16/24 10:22 CGR (Rec: 11/16/24 10:36 CGR [id number]) Medical Review Prior Functional Status Medical History Reviewed Yes Communication Pt is an effective verbal communicator. Mobility and Gait Pt was MOD I with use of a 2WW for outside and IND for mobility in the home without AD. Activities of Daily Living and IADL's Pt was IND in all ADLs and her daughter who lives near her assists with food prep, and grocery shopping. Social History Household Members none Living Arrangements House Number of Floors (Floors) Two Floors Number of Stairs To Enter/Railing? 1 step to enter and spiral stair case up to second floor where the only bathing option is. Home Environment Standard Height Toilet,Walk in Shower Home Equipment Front Wheel Walker,Four Wheel Walker,Shower Seat with Backrest,Hand Held Shower,Grab Bars In Shower Employment Status Retired M1 PT/OT-IP Prior Functional Status Start: 11/16/24 12:14 Freq: NEEDED Status: Active Protocol: Document 11/16/24 12:14 KJ (Rec: 11/16/24 12:28 KJ [id number]) Medical Review Prior Functional Status Medical History Reviewed Yes Mobility and Gait Pt has had frequent falls recently. She mobilizes using a walker. Activities of Daily Living and IADL's Pt's daughter would come by several times per day to assist her with ADLs. Pt was not changing her depends as needed. Pt was often refusing assistance. Pt has had difficulty using her cell phone recently and is unable or unwilling to learn to use the Mary to call for help. Social History Household Members none Living Arrangements House Number of Floors (Floors) Two Floors Number of Stairs To Enter/Railing? Cale Holguin says there is a bathroom on the first floor, therefore, pt is able to live on the first floor without the need to go upstairs. Home Environment Standard Height Toilet,Walk in Shower Home Equipment Front Wheel Walker,Four Wheel Walker,Shower Seat with Backrest,Hand Held Shower,Grab Bars In Shower Employment Status Retired Additional Social History Comment Cale Holguin has been stopping by frequently but works and is not able to be there 17/06. Other cale lives in [place]. Pt apparently has not had adequate nutrition because of decreased appetite. M2 PT-IP Current Condition Start: 11/16/24 12:14 Freq: NEEDED Status: Active Protocol: Document 11/16/24 12:14 KJ (Rec: 11/16/24 12:28 KJ [id number]) Physical Therapy Current Condition Current Condition Evaluation Date 11/16/24 Treatment Diagnosis impaired mobility, impaired balance M3 PT-IP Subjective Start: 11/16/24 12:14 Freq: NEEDED Status: Active Protocol: Document 11/16/24 12:14 KJ (Rec: 11/16/24 12:28 KJ [id number]) Subjective Physical Therapy Visit Type Type Initial Evaluation Visit Start Time 11:42 Visit Stop Time 12:11 Physical Therapy Visit Comments Patient Comments She notices that she is losing her balance backward M4 PT-IP Mobility and Gait Start: 11/16/24 12:14 Freq: NEEDED Status: Active Protocol: Document 11/16/24 12:14 KJ (Rec: 11/16/24 12:28 KJ [id number]) PT-Transfer Assessment Sit to and From Stand Sit to and from Stand Contact Guard Assistance Equipment Transfer Assistive Device Gait Belt,4 Wheeled Walker Transfers Transfer Destination Chair Transfer Technique Stand Step Pivot Transfer Ability Level of Assist Contact Guard Assistance Gait Assessment Gait Gait Assistance Required: Minimum Assistance Distance (Feet) 15 Assistive Devices Assistive Device Gait Belt,Front Wheeled Walker Gait Deviations General Gait Pattern Decreased Stride Length,Narrow Based Gait Factors Limiting Gait Function Factors Limiting Gait Function Decreased Activity Tolerance Comments Gait Comments Pt with backward lean requiring assistance to maintain balance. Verbal cues provided for upright posture and transitions. PT-Balance Assessment Sitting Balance and Reactions Static Sitting Balance Ability Good Dynamic Sitting Balance Ability Good Standing Balance and Reactions Static Standing Balance Ability Poor Dynamic Standing Balance Ability Poor M5 PT-IP Objective Assessments Start: 11/16/24 12:14 Freq: NEEDED Status: Active Protocol: Document 11/16/24 12:14 KJ (Rec: 11/16/24 12:28 KJ [id number]) Orientation Orientation/Cognition Level of Alertness Alert Orientation Name,Age,Birthday Safety Awareness Decreased Safety Awareness Comments Requires frequent redirection to task. 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 Pt able to sit upright in chair without assistance. Sit to stand w/CGA. Ambulated short distance in room w/fww, requiring min assist to maintain balance. Required verbal cuing for safety during transfer back to chair. M7 PT-IP Assessment and Plan Start: 11/16/24 12:14 Freq: NEEDED Status: Active Protocol: Document 11/16/24 12:14 KJ (Rec: 11/16/24 12:28 KJ [id number]) PT Summary Assessment and Plan Potential Rehabilitation Potential Good Status of Condition at Evaluation Evolving Summary Assessment Summary At this time pt is not safe mobilizing by herself. She also has not been eating much. With proper nutrition and resolution of UTI she may be able to improve her mobility status and return home. Goals Bed Mobility Goal Independent Transfer Goal Independent Gait Goal Independent Gait Distance 50' Days to Meet Goals 7 Frequency of Treatment Frequency Of Treatment Once a Day Treatment Plan Physical Therapy Treatment Plan Bed Mobility Training,Transfer Training,Gait Training, Therapeutic Exercise,Balance Retraining Other Recommendations and Next Treatment focus on safe mobility Focus Discharge Recommendations Transportation Needs at Discharge Private Vehicle
--- NOTE | 2024-11-16 12:43 | ST.IPCSEOM ---
Visit Care Team Role Provider Type Fatimah Garner DO Emergency Provider Physician Specialty: Emergency Medicine Address: [address] [place] [address], [address] Email: [email or web address] Attending Provider Physician Family Provider Primary Care Provider Specialty: Family Practice Address: [address] [place] [address], [address], [place], [address] Email: [email or web address] Veronika Rajan MD Admit Provider Physician Other Providers Specialty: Family Practice Address: [address] [place] [address], [address], [place], [address] Email: [email or web address] Speech-Language Pathology Swallow Evaluation ASSISTANT GUEST SERVICES MANAGER Clinical Swallow Evaluation Start: 11/16/24 10:48 Freq: Status: Active Protocol: Document 11/16/24 10:48 CG (Rec: 11/16/24 12:02 CG [id number]) Clinical Swallow Evaluation Session Time Visit Start Time 09:10 Visit Stop Time 09:40 Total Visit Minutes 30 Visit Information Visit Number [address] Veronika Rajan Reason for Referral s/sx dysphagia in ED; AMS Setting Assessment Location Acute Care Visit Type Note Type Initial evaluation Next Note Type Next Note Type Treatment Note Patient Information Identification Type Name History Patient is a 89-year-old female with a history of hypertension and hypothyroid who presented to the ED at this hospital with altered mental status yesterday (11/15). She lives alone on [facility]. Overall appeared very thin and cachectic. Found to be mildly hypoglycemic with a POC glucose of 55. Reports that she was having some right eye goopy in drainage. No other chest pain or other symptoms. Daughter called the EMS for a welfare check and she was brought in. Daughter stated that she has been battling increasing fatigue/sleepiness, loss of appetite, and frequent incontinence. CT was negative for acute intracranial process. Chest X ray report as follow: Bilateral effusions, left greater than right. Underlying areas of pneumonia /atelectasis/mass lesion cannot be excluded. ED nurse reported that the pt was observed to cough with thin liquids in ED. ASSISTANT GUEST SERVICES MANAGER evaluation ordered to assess for dysphagia and determine safest least restrictive diet. Subjective Observations Pt was lying in bed upon ST entry to room. Easily roused by voice and responsive to all questions with clear speech. Pt presented with occasional confusion, stating I've been looking forward to seeing you today though this is first introduction to this ASSISTANT GUEST SERVICES MANAGER. Pt also told ASSISTANT GUEST SERVICES MANAGER, Your parents were adventurers before correcting herself, Well, not your parents...Daija's parents. When asked where she was, she stated she was still in ED at [facility]. She correctly stated year (It's still 2023), though she later went on to state year incorrectly for OT. She stated date was the or 07 of November. When asked why she was in the hospital, pt stated she was in for a fall. Pt was generally able to follow conversation, though was occasionally tangential. For example, when ASSISTANT GUEST SERVICES MANAGER asked if she had any questions or concerns related to her speech or language, she began recalling spending time in [place]. Other than this, she answered about 75-80% of questions appropriately. Pt initially stated I don't have any trouble with swallowing. When asked if she recalled coughing on water in ED, pt stated, Yes, it went down my trachea. ASSISTANT GUEST SERVICES MANAGER asked if liquids go down the wrong tube often. Pt stated, Seldom. She denied difficulty swallowing solids or medications. 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 This was about 5 to 10 years ago based on her recollection. She states she was given options for surgical intervention for this at the time but declined surgery. Stated, It doesn't bother me. Pt was agreeable to ASSISTANT GUEST SERVICES MANAGER swallow evaluation. She was reluctant to sit up fully for PO trials, stating it caused pain. ASSISTANT GUEST SERVICES MANAGER was able to position pt up to about 50 degrees for PO trials. Pt c/o chills/feeling cold throughout evaluation. Reported by Patient/Caregiver Other Symptoms Coughing,Difficulty swallowing liquids Comment ED nurse reported s/sx aspiration on thin liquids. Pt has been NPO since this morning pending ASSISTANT GUEST SERVICES MANAGER eval. Current Diet NPO Baseline Feeding Method Independent in self-feeding The IDDSI Framework Protocol: IDDSI.1 Objective Assessment Mental Status Alert,Responsive,Cooperative, Confused Oral Integrity WFL Dentition Missing teeth,Decay Lip Function Within normal limits Pucker Within normal limits Lip Retraction Within normal limits Tongue Function Within normal limits Tongue Protrusion Within normal limits Jaw Opening Within normal limits Respiratory Sufficiency Within normal limits Comment OME largely unremarkable. Pt has most of her own dentition present with a few missing teeth, but still adequate for mastication. She followed all one-step directions for OME without the need for visual cues. Cued cough was mildly weak but glottal closure was still audible; likely sufficient for airway protection. Food and Liquid Trials Position During Assessment Slightly reclined,In bed Liquids Trialed Thin (IDDSI 0) Solid Trials Purred (IDDSI 4),Regular ( IDDSI 7) Administration Type Cup single sip,Cup consecutive sips Oral Impairment Within functional limits Oral Phase Comments Pt was observed with water, pudding, and marci cracker trials. Oral acceptance and containment WFL across all consistencies. A-P transit appeared timely and efficient. Pt independently cleared oral residue via lingual sweep and liquid wash. Pharyngeal Impairment Within functional limits Pharyngeal Phase Comments Pt was observed with water, pudding, and marci cracker trials. No overt s/sx aspiration/penetration, though silent aspiration cannot be ruled out without an instrumental assessment. Results Pt presents with oral and pharyngeal swallow function within functional limits for age. Aspiration event in ED was likely an isolated incident, possible related to fatigue/weakness upon admission due to hypoglycemia. Pt's confusion/AMS does put her at a slightly increased risk for swallow/aspiration- related injury, though other significant risk factors are not present based on evaluation. Recommend regular diet with ASSISTANT GUEST SERVICES MANAGER to follow to ensure pt is tolerating PO diet. Pt will also benefit from thorough cognitive assessment once her lab numbers have stabilized. Pt needs reminders to sit upright for meals. The IDDSI Framework Protocol: IDDSI.1 Findings Swallowing Function Within functional limits Swallowing Function Comments -Monitor for tolerance due to fluctuating mental status Severity of Swallow Impairment Within functional limits Contributing Factors to Swallow Reduced alertness or attention Impairment Prognosis Fair Based on Cognitive status Comment Pt presents with confusion and nursing reported previous suspected aspiration incident. Recommend ASSISTANT GUEST SERVICES MANAGER follow to ensure diet tolerance and possibly complete cognitive assessment when labs stabilize . Pt needs reminders to sit upright for meals. Recommendations Instrumental Assessment No Swallowing Treatment Yes Recommended Solids Regular (IDDSI 7) Recommended Liquids Thin (IDDSI 0) Other Recommendations ASSISTANT GUEST SERVICES MANAGER to follow to assess tolerance. Cog assessment recommended. Pt needs reminders to sit upright. Safety Precautions/Swallowing Remain upright (90 degrees) Recommendations during all oral intake Medication Recommendations As Tolerated Discharge Recommendations [facility] facility Goals Short-term Goals Pt will tolerate current diet of thin liquids (IDDSI 0) and regular solids (IDDSI 7) without overt s/sx aspiration/ penetration. Pt will complete cognitive evaluation with ASSISTANT GUEST SERVICES MANAGER or OT to assist in d/c planning.
--- NOTE | 2024-11-16 13:19 | DIET.CONS ---
Dietary Consultation Note Admission Date: 11/16/2024 01:12 Assessment: 89 y F presenting with altered mental status and UTI. RD consulted for BMI <18. Presented with POC glucose 55. D10 infused. Per RN, pt did well with SUBSTATION DESIGNER and has diet ordered. Met with pt in room, pt reports feeling very hungry. OT brings food in for pt. Came back when pt was done eating and done with OT. Daughter was present in room at this visit. Pt notes she has not had good appetite for last several months. Daughter reports pt has only been eating a palm sized amount of food at breakfast and 1 glass of milk per day for the last 2 weeks and a general decrease in intakes over last couple of months. Daughter reports pt experiencing urinary incontinence after eating, which resulted in her avoiding eating as well. NFPE postponed, pt about to eat again. Ht: 157.48 cm Wt: 44 kg BMI: 17.7 (underweight) UBW: 49 kg on 06/06/24 (-10.2% weight loss within 6 months, severe) Last BM: 11/15/24 (11/16/24 01:14) MNA: 7 Jaquan Score: 15 Diet: 11/16/24 Breakfast General (Regular) Diet Diet Modifications: Labs: RBC 5.12 X10^6/uL (4.0-5.2) 11/15/24 21:30 Hgb 14.1 g/dL (12.0-16.0) 11/15/24 21:30 Hct 43.1 % (36-46) 11/15/24 21:30 Creatinine 0.83 mg/dL (0.52-1.04) 11/15/24 21:30 Lactate 1.8 mmol/L (0.7-2.1) 11/16/24 00:11 Nutrition Diagnosis: Severe Acute Protein Calorie Malnutrition r/t physiological causes decreasing ability to consume adequate energy-protein intake as evidenced by metabolic encephalopathy, <50% of estimated energy needs for 2 weeks per diet recall (severe), BMI underweight for age, 17.7 (severe), and 10% weight loss within 6 months (severe) Interventions: 1. Monitor PO intakes, support gradual, increasing reintroduction kcal/protein with ONS EER: 1500 kcals (35 kcals/kg per BMI) 65-75 g protein (1.5-1.7 g/kg per severe PCM) Monitoring/Evaluations: po intakes, f/u tomorrow Electronically Signed by: Reema Pop 11/16/24 13:19 Clinical Dietitian [address] [address]
--- NOTE | 2024-11-16 14:31 | CM.DANOTE ---
Patient is an 89 yo female who was admitted OBS Status and changed to INPT Status on 11/16/24 for UTI/Encephalopathy. Pt has MCR and BX FED for insurance and her PCP is Dr. Boom Dixon. EMR was reviewed. Per MD, pt with hx of mild cognitive impairment and declining some in health over the past few months and admitted for tx of UTI, metabolic encephalopathy and getting IV-Abx and adjusting her labs. Per PT/OT, recommending SNF vs home with 24/7 pending progress but feel pt would benefit from SNF before home. SW spoke to and he confirms he feels pt would benefit from SNF prior to d/c home. SW spoke to pt's Dtr Chelsie via phone as she had to leave to go back to work and Dtr confirms that pt resides on [facility] at home alone but Dtr Chelsie [phone] lives on [facility] as well and checks on pt daily and sometimes multiple times a day and helps with meals and assist as needed but is working still and cannot provide 24/7 at this time but has started considering [facility] to provide additional assist. Pt has neighbor friends that also help keep an eye on her and feel that since pt has not been managing her meds well she has had increased confusion lately. Pt has a hx of [facility] in the past and Dtr Chelsie does not think pt has been agreeable to SNF in the past as well and that pt's increased care needs prompted her to reach out to [facility] for possible referral but then pt admitted to the hospital and Dtr wants to see if regular management of her meds and SNF would increase her quality of life and is not moving forward with Hospice at this time. Dtr Chelsie confirms she feels SNF needed at d/c and preference is [facility] due to location. Chelsie states her half sister Maria Alejandra is pt's DPOA and working to get the pwk emailed to [facility] and Maria Alejandra lives out of state. SW made new referral to [facility] to review and updated on pt status and Dtr involvement and they will review and confirm if they can accept once pt meets 3 night qualifying stay. PASRR completed in anticipation of SNF. Plan: SW to follow closely for [facility] review and confirmation from Dtr Maria Alejandra that POA pwk emailed and to updated Dtr Maria Alejandra and Chelsie regarding SNF acceptance. NADIR Wharton Discharge Planning/Care Management CM Discharge Assessment Start: 11/16/24 14:29 Freq: Status: Active Protocol: Document 11/16/24 14:29 BF (Rec: 11/16/24 14:31 BF [id number]) Discharge Planning Assessment Assigned Home Economics Extension Worker NADIR Alvarado DPOA/Assigned Designee Name Maria Alejandra Advance Directives? No Advance Directives on File No History Provided By Patient,Family Member,Medical Record Has Patient been admitted in last 30 No days? Prior Living Arrangements House Household Members none Type of transporation used prior to Relies on Others admit Independent with ADL's No: forgetful Is patient alert and oriented? No: dementia Needs Assistance With Meal Prep,Managing Medications ,Home Chores / Shopping Caregiver for Another No Patient/Family Preference Group Home Facility Barriers to Discharge No Comment Just changed from OBS to Inpt Discharge Plan Group Home Facility Transportation Arrangement Dtr Chelsie if safe for home vs facility van Referrals Initiated Group Home If patient plan is SNF: Has PASSR been Yes completed? Inpatient Status as of 11/16/24 Medicare Choice List Provided Yes Medicare choice list reviewed on family electronic tablet with SNF/HH Preference [facility] as pt lives on [facility] Has Agency SNF been contacted Yes Whiteboard Updated in Patient Room with Yes name and ext. # of Home Economics Extension Worker Review Status In Process Please Provide Date Initial DC 11/16/24 Assessment Was Performed Next Review Type Continued Stay Review
[2024-11-16] MEDS: cefTRIAXone 2,000 MG in SODIUM CHLORIDE 0.9% 100 ML 200 MG IV (16:07)
--- NOTE | 2024-11-16 18:06 | P.HP_ITS ---
History of Present Illness History of Present Illness Date Patient Seen: 11/16/24 Time Patient Seen: 18:07 Date of Onset of Symptoms: 10/28/24 Chief complaint: slipped off sofa Narrative: Patient is an 89-year-old female well known to me who I have not seen for some time who lives on [facility] and has a [place] getting [place]. Patient apparently was doing okay up until the last month. Where things are becoming increasingly difficult. Apparently she has not been moving as much. Not feeding her dog or her turkey not feeding herself much. She denies any significant pain headaches visual symptoms or other change. She has not been taking her thyroid medicine for unknown amount of time maybe up to a month or more. Just ran out and did not think she really needed it much. She had no other significant new changes or complaints. She has been having urinary incontinence and having trouble getting to the bathroom. No bowel changes. She does not really think that her urine hurts. She has had no abdominal pain. Does not feel like she has been losing weight. But she certainly seems like she is felt that way without other changes. There was no other complaint or problem. Patient has had no definitive mental status changes in the past although there has been some question of her ability to care for herself at home. [facility] Social History household members: none Smoking Status: Former smoker alcohol intake: current Meds Home Medications and Allergies Home Medications Medication Instructions Recorded Confirmed Type levothyroxine 100 mcg tablet 100 mcg PO DAILY 06/05/24 11/16/24 History [id number]-[id number] 3 cap PO 3XD Pancreatic 06/05/24 11/16/24 History 24,000-76,000-120,000 unit insufficiency capsule,delayed rel (Creon) losartan 25 mg tablet 50 mg PO BID 06/05/24 11/16/24 History omeprazole magnesium 20 mg 20 mg PO BID 11/16/24 11/16/24 History capsule,delayed release (Acid Prefabricated Houses Trimmer (omeprazole)) Allergies Allergy/AdvReac Type Severity Reaction Status Date / Time NSAIDS (Non-Steroidal Allergy Unknown STOMACH Verified 11/16/24 00:25 Anti-Inflamma PAIN [NSAIDS (NON-STEROIDAL ANTI-INFLAMMA] Review of Systems Review of Systems Narrative: All negative except above Exam Vital Signs (past 8 hours): - 11/16/24 10:33 11/16/24 14:00 Temperature 97.9 F 97.4 F L Pulse Rate 70 81 Respiratory Rate 18 16 Blood Pressure 106/52 L 110/55 L Pulse Oximetry 93 98 Oxygen Flow Rate 0 0 Oxygen Delivery Method Room Air Oxygen Flow Rate 0 Narrative Exam Narrative: Alert cachectic appearing female lying in bed in no acute distress Mucous membranes moist neck supple without adenopathy JVD or bruits lungs are clear heart is regular rate and rhythm with 1/6 systolic murmur best heard at left sternal border. With no other changes. Otherwise abdomen is soft positive bowel sounds scaphoid nontender extremities without edema neurologic exam appears intact shows actually oriented to herself and to where she is into the close to the date she notes around [place] time. No is October 2024. But is confused and a lot of other statements and rambling in her speech Objective Labs 11/15/24 21:30 11/15/24 21:30 Labs: Laboratory Results - last 24 hr 11/15/24 11/15/24 11/15/24 21:30 22:10 22:10 WBC 10.1 RBC 5.12 Hgb 14.1 Hct 43.1 MCV 84.1 MCH 27.6 MCHC 32.8 RDW 16.9 H Plt Count 499 H Neut % (Auto) 83.5 H Lymph % (Auto) 10.0 L [place] % (Auto) 5.4 Eos % (Auto) 0.9 L Baso % (Auto) 0.2 Neut # (Auto) 8400 H Lymph # (Auto) 1000 L [place] # (Auto) 500 Eos # (Auto) 100 Baso # (Auto) 0 Sodium 135 L Potassium 3.4 Chloride 99 Carbon Dioxide 29 BUN 40 H Creatinine 0.83 Estimated GFR > 60 BUN/Creatinine Ratio 48.2 H Glucose 83 Lactate 2.3 H Calcium 8.6 Total Bilirubin 0.8 AST 45 H ALT 18 Alkaline Phosphatase 100 Total Creatine Kinase 144 H Troponin I < 0.012 Total Protein 7.8 Albumin 3.5 Globulin 4.3 H Albumin/Globulin Ratio 0.8 L Procalcitonin 0.129 TSH 74.9 H Urine Color Yellow Urine Appearance Sl cloudy Urine pH 5.5 Normal Ur Specific [place]ushing 1.020 Urine Protein 1+ H Urine Glucose (UA) Negative Urine Ketones Trace H Urine Occult Blood Trace-intact Urine Nitrate Negative Urine Bilirubin 1+ H Ur Bilirubin Confirm Negative Urine Urobilinogen 1.0 Ur Leukocyte Esterase Trace H Urine RBC 0-1/hpf Urine WBC 30-100/hpf H Ur Squamous Epith Cells 0-1 /hpf Calcium Oxalate Crystal Few H Urine Bacteria Many (>30) H Hyaline Casts 0-1/lpf Granular Casts 0-1/lpf WBC Casts 0-1/lpf Urine Mucus 3+ H Ur Culture Indicated? Specimen cultured Vol Urine Centrifuged 10ml (spun) U Opiates 300ng/mL cut Negative Ur Oxycodone Screen Negative Urine Methadone Screen Negative Ur Barbiturates Screen Negative U Tricyclic Antidepress Negative Ur Phencyclidine Scrn Negative Ur Amphetamines Screen Negative U Methamphetamines Scrn Negative Ur MDMA Scrn (Ecstasy) Negative U Benzodiazepines Scrn Negative Urine Cocaine Screen Negative U Marijuana (THC) Screen Negative Urine Specific [place]ushing Normal Ethyl Alcohol < 10 Ur Creatinine Normal SARS-CoV-2 (PCR) Influenza A (RT-PCR) Influenza B (RT-PCR) RSV (PCR) 11/15/24 11/16/24 22:37 00:11 WBC RBC Hgb Hct MCV MCH MCHC RDW Plt Count Neut % (Auto) Lymph % (Auto) [place] % (Auto) Eos % (Auto) Baso % (Auto) Neut # (Auto) Lymph # (Auto) [place] # (Auto) Eos # (Auto) Baso # (Auto) Sodium Potassium Chloride Carbon Dioxide BUN Creatinine Estimated GFR BUN/Creatinine Ratio Glucose Lactate 1.8 Calcium Total Bilirubin AST ALT Alkaline Phosphatase Total Creatine Kinase Troponin I Total Protein Albumin Globulin Albumin/Globulin Ratio Procalcitonin TSH Urine Color Urine Appearance Urine pH Ur Specific [place]ushing Urine Protein Urine Glucose (UA) Urine Ketones Urine Occult Blood Urine Nitrate Urine Bilirubin Ur Bilirubin Confirm Urine Urobilinogen Ur Leukocyte Esterase Urine RBC Urine WBC Ur Squamous Epith Cells Calcium Oxalate Crystal Urine Bacteria Hyaline Casts Granular Casts WBC Casts Urine Mucus Ur Culture Indicated? Vol Urine Centrifuged U Opiates 300ng/mL cut Ur Oxycodone Screen Urine Methadone Screen Ur Barbiturates Screen U Tricyclic Antidepress Ur Phencyclidine Scrn Ur Amphetamines Screen U Methamphetamines Scrn Ur MDMA Scrn (Ecstasy) U Benzodiazepines Scrn Urine Cocaine Screen U Marijuana (THC) Screen Urine Specific Flushing Ethyl Alcohol Ur Creatinine SARS-CoV-2 (PCR) Negative Influenza A (RT-PCR) Flu a negative Influenza B (RT-PCR) Flu b negative RSV (PCR) Negative Assessment & Plan Assessment & Plan narrative: Patient 89-year-old with failure to thrive. Weight loss incontinence memory changes. Urosepsis. Urinary incontinence weight loss elevated left shift and hypoglycemia. IV when initial replacement now doing better. Will continue to follow. Continue Rocephin. Culture hopefully will be present tomorrow. Will see how that shows and address treatment. Otherwise seems to be pretty well stable. Hypoglycemia. I think this is probably secondary to her infection seems to be stabilized now. But will see how things go. Will continue fluid but hold further glucose. And see how she does is capable of eating on her own. With no other changes. We will follow. I am hoping we can get it up with p.o. and recheck in a.m.. Dehydration. Moderate been hydrated over the last 24 hours will continue to follow but I do not think we need to aggressively go from there. I think she is more euvolemic at this point and will rechecked. Metabolic encephalopathy. There is no question that her mental status has changed since I saw her last but it has been some time. She does have some connection has not completely loss but certainly has difficulty following a sentence. I think this certainly could be grossly impacted by her infection and her thyroid. Certainly this degree of hypothyroidism could be affecting somebody this old. And it will take some time due to replacement for this to recover. Will have to see how things go. Hypothyroidism. Pretty severe. Will need to be rechecked in a month. Will continue slight increase in dose as written. And re-evaluate. There is no immediate fix for this issue. He is sick in the take time. Chief Severe protein malnutrition. Patient clearly has not been getting enough to eat on her own. And whether this is a combination of her baseline mental status or the combination of infection and thyroid and slowly coming on it is unclear but at this point will be required that we get her nutritionally more sound and will need to follow. Will see how she eats while she is here Code status no code. GI prophylaxis on pantoprazole. Will follow. Disposition. Will really depend on how she responds over the next 24-48 hours my guess she will be here at least 48 more hours. May need placement to get strength up and see how she does. I do not think given her malnutrition and combination that she can go straight home at least alone. She will either need 24 hours care or short-stay rehab and then some type of help. But I do not anticipate her going straight home. Daughter has multiple concerns what she left me a note about and we will see how that goes. ITZEL apparently has a daughter in [place] and will have to see what happens depends on how she does will follow-up tomorrow Time-Based Coding :: [TOTAL MINUTES] spent with patient and on the chart (including review of chart, obtaining history, exam, reviewing outside data, placing orders, documenting exam and treatment plan, and counseling patient) on [DATE]. Quality VTE Deep Vein Thrombosis/Pulmonary Embolism Present on Admission: No
[2024-11-16] MEDS: PANTOPRAZOLE DR 20 MG TABLET PO (20:54)
[2024-11-17 03:00] VITALS: BP 110/48; PULSE 79; RESP 18; TEMP 36.8; O2SAT 96
[2024-11-17] MEDS: LEVOTHYROXINE 112 MCG TABLET PO (05:07)
[2024-11-17 05:48] LABS: Hematocrit 34.9 % (36-46); Hemoglobin 11.2 g/dL (12.0-16.0); Mean Corpuscular HGB Conc 32.3 % (30-36); Mean Corpuscular Hemoglobin 27.2 PG (26-34); Mean Corpuscular Volume 84.2 fL (80-100); Platelet Count 461 X10^3/uL (150-400); Red Blood Cell Count 4.14 X10^6/uL (4.0-5.2); Red Cell Distribution Width 16.8 % (11.6-14.8); White Blood Cell Count 8.2 X10^3/uL (4.5-11.0)
[2024-11-17 05:56] LABS: Alanine Aminotransferase 13 IU/L (<35); Albumin 2.4 g/dL (3.5-5.0); Albumin Globulin Ratio 0.7 (1.0-2.8); Alkaline Phosphatase 70 U/L (38-126); Aspartate Aminotransferase 31 IU/L (14-36); BUN Creatinine Ratio 38.6 (6-22); Bilirubin Total 0.4 mg/dL (0.2-1.3); Blood Urea Nitrogen 32 mg/dL (7-17); Calcium 7.9 mg/dL (8.4-10.2); Carbon Dioxide 32 mmol/L (22-32); Chloride 100 mmol/L (98-107); Creatine Kinase 56 U/L (30-135); Estimated Glomerular Filt Rate > 60 mL/min (>60); Globulin 3.5 g/dL (1.7-4.1); Glucose 96 mg/dL (80-110); HEMOLYSIS < 15 (0-50); Potassium 3.2 mmol/L (3.4-5.1); Sodium 131 mmol/L (137-145); Total Protein 5.9 g/dL (6.3-8.2)
[2024-11-17 06:01] LABS: Neutrophils Absolute Manual 6970 /uL (3000-5900); Total Cells Counted 100
[2024-11-17 06:02] LABS: Platelet Estimate Increased on smear; RBC Morphology Normal Morphology
[2024-11-17 07:00] VITALS: BP 97/54; PULSE 79; RESP 14; TEMP 36.6; O2SAT 96
[2024-11-17] MEDS: POTASSIUM CHLORIDE 20 MEQ TAB 40 MEQ PO (07:00)
[2024-11-17] MEDS: ENOXAPARIN 40 MG/0.4 ML SYRINGE SUBCUT (07:58)
[2024-11-17] MEDS: PANTOPRAZOLE DR 20 MG TABLET PO ×2 (07:59→20:47)
--- NOTE | 2024-11-17 08:27 | PC.NURSE ---
Addendum entered by Betsy Salguero R.N. 11/17/24 13:42: Patients cozaar d/cd as patients blood pressure has consistently been low. Original Note: Patient is much more alert and oriented x4 this morning. She has an allevyn dressing to her mid buttocks as she has 2 pressure soars on each buttock. Dressing is cdi, photos under notes. Patient is frail and thin, she is eating a bit more at meals and she denies pain at this time. Repositioned on her back for breakfast with hob up, patient took her medication without any problems or coughing.
--- NOTE | 2024-11-17 09:00 | OT.IP.TRT ---
Current Diagnoses Adult failure to thrive (11/16/24) Occupational Therapy Treatment Note M2 OT-IP Current Condition Start: 11/16/24 10:22 Freq: Status: Active Protocol: Document 11/16/24 10:22 CGR (Rec: 11/16/24 10:36 CGR [id number]) Occupational Therapy Current Condition Current Condition Evaluation Date 11/16/24 Treatment Diagnosis fall from couch, confusion, UTI Diagnosis Onset Date 11/16/24 M3 OT- IP Subjective and Pain Start: 11/16/24 10:22 Freq: Status: Active Protocol: Document 11/17/24 08:54 CGR (Rec: 11/17/24 09:00 CGR [id number]) OT- Subjective Occupational Therapy Visit Type Type Treatment Note Visit Start Time 08:32 Visit Stop Time 08:51 Notes Pt requesting to eat her breakfast. OT Pain Assessment Pain When Pain Assessed At Rest Pain Present Pain Present Denied Pain M4 OT- IP ADL's Start: 11/16/24 10:22 Freq: Status: Active Protocol: Document 11/17/24 08:54 CGR (Rec: 11/17/24 09:00 CGR [id number]) OT [id number] General Evaluation Self-Feeding Ability Independent Comments OT Self-Feeding Comments sitting up in chair with set up OT ADL-Grooming Comments OT Grooming Comments pt declined to perform OT ADL-Oral Care Comments Oral Care Comments pt declined to perform OT ADL-Dressing Comments OT Dressing Comments not performed OT ADL-Toileting General Evaluation Toileting Ability Total Assistance Comments OT Toileting Comments Pt with breif and periwick. Periwick removed for transfer. OT ADL-Bathing Comments OT Bathing Comments not performed M5 OT- IP IADL's Start: 11/16/24 10:22 Freq: Status: Active Protocol: Document 11/16/24 10:22 CGR (Rec: 11/16/24 10:36 CGR [id number]) OT-Instrumental Activities of Daily Living Deficits IADL Deficits Identified No Deficits Home Safety Awareness Ability to Problem Solve Emergency Unable to Problem Solve Situations Medication Management Medication Management Comments concerns regarding pt's ability to perform Money Management Money Management Comments concerns regarding pt's ability to perform Meal Preparation Meal Preparation Caregiver Provides Assist Meal Preparation Comments daughter cooks/meal preps Counter Tacker Counter Tacker Comments concerns regarding pt's ability to perform Driving Driving Comments pt states that she can drive but hasn't been recently M6 OT- IP Functional Cognition Start: 11/16/24 10:22 Freq: Status: Active Protocol: Document 11/16/24 10:22 CGR (Rec: 11/16/24 10:36 CGR [id number]) Cognitive Factors Limiting Selfcare Function Cognitive Ability Level of Alertness Alert,Confusional State Patient Orientation Name,Month,Place Attention Span Ability Capable of Focused Attention, Capable of Sustained Attention Ability to Follow Commands Able to Follow One Step Commands with Increased Time, Able to Follow One Step Commands with Repetition Cognitive Comments Cognitive Assessment Comments Pt states that she is at [facility] in the basement on [facility]. Then clairified that [facility] is in [place]. Pt states it is 1922, and November 07. OT- Vision and Hearing OT- Hearing Assessment OT- Hearing Assessment WFL OT- Vision Assessment Visual Acuity Glasses All The Time Visual Attentiveness WFL Occular Pursuits WFL M7 OT- IP Mobility and Balance Start: 11/16/24 10:22 Freq: Status: Active Protocol: Document 11/17/24 08:54 CGR (Rec: 11/17/24 09:00 CGR [id number]) OT- Bed Mobility Assessment Supine to Sit Supine to Sit Assist Standby Assistance,Head of Bed Elevated,Bedrails Scooting Scooting to Edge of Bed Standby Assistance,Head of Bed Elevated,Bedrails OT-Transfer Assessment Sit to and From Stand Sit to and from Stand Minimal Assistance Transfers Transfer Ability Minimal Assistance Technique Transfer Destination Bed,Chair Transfer Technique Stand Step Pivot Devices Transfer Assistive Devices Gait Belt,Front Wheeled Walker Comments Mobility Comments Pt performed bed mobility with max vc and SBA then sit to stand from bed and transfer to chair with min a. Pt is cold and requesting warm blankets and says she is hungry and just wants to eat breakfast. OT- Gait Assessment Comments Gait Ability Comments not performed OT- Balance Assessment Sitting Balance and Reactions Static Sitting Balance Ability Good Dynamic Sitting Balance Ability Good M8 OT- IP Objective Assessments Start: 11/16/24 10:22 Freq: Status: Active Protocol: Document 11/16/24 10:22 CGR (Rec: 11/16/24 10:36 CGR [id number]) OT Gross Range of Motion Upper Extremity Range of Motion Assessment Within Functional Limits OT Strength Comments Strength Comments grossly 4/5 OT- Coordination Assessment Upper Extremity Finger to Nose Test Within Functional Limits Finger Tapping Test Within Functional Limits Comments Coordination Comments Pt states she is concerned about her ability to use her right hand. She has a hx of a tendon issue that has been fixed per pt. She was able to perform feeding, opening containers etc without difficulty. OT-Muscle Tone Assessment Muscle Tone WNL Yes OT Sensation Assessment Edema Edema Present Edema Comments slight to BLE M9 OT- IP Assessment and Plan Start: 11/16/24 10:22 Freq: Status: Active Protocol: Document 11/17/24 08:54 CGR (Rec: 11/17/24 09:00 CGR [id number]) OT Summary Assessment and Plan Potential Rehabilitation Potential Excellent Analytic Complexity at Evaluation Moderate Summary OT Impairments Strength,Balance,Functional Cognition,Functional Mobility, Grooming,Dressing,Toileting, Bathing,Toilet Transfers, Shower Transfers,Activity Tolerance Progress Towards Goals Progressing Toward Goals Assessment Summary Pt presents as a moderate complexity evaluation s/p admit for AMS and UTI with fall off couch. Pt participated in transfer to chair and requesting to eat. Ot session limited d/t pt's request to eat. Pt does appear more clear cognitively today and may be appropriate for SLUMS tomorrow . Will continue to follow. Goals Grooming Goal Independent Dressing Goal Independent Toileting Goal Independent Bathing Goal Independent Toilet Transfer Goal Independent Shower Transfer Goal Independent Days to Meet Goals 10 Frequency of Treatment Frequency Of Treatment Once a Day Other frequency 5x a week Treatment Plan OT Treatment Plan ADL Training,Functional Cognition Training,Functional Mobility,Patient/Family Education,Discharge Planning Other Treatment Recommendations and Next ADls standing, shower, Treatment Focus toileting, dressing. Discharge Recommendations OT Discharge Recommendations Home vs SNF Transportation Needs at Discharge Private Vehicle
--- NOTE | 2024-11-17 09:43 | ST.IPDYTX ---
Visit Care Team Role Provider Type Fatimah Garner DO Emergency Provider Physician Specialty: Emergency Medicine Address: [address] [place] [address], [id number] Email: [email or web address] Boom Dixon MD Attending Provider Physician Family Provider Primary Care Provider Specialty: Family Practice Address: [address] [place] [address], [address], [place], [address] Email: [email or web address] Veronika Rajan MD Admit Provider Physician Other Providers Specialty: Family Practice Address: [address] [place] [address], [address], [place], [address] Email: [email or web address] HAIR SPRING CUTTER Dysphagia Treatment HAIR SPRING CUTTER Dysphagia Treatment Start: 11/17/24 09:36 Freq: Status: Active Protocol: Document 11/17/24 09:37 MA (Rec: 11/17/24 09:43 MA [id number]) Dysphagia Treatment Session Time Visit Start Time 09:07 Visit Stop Time 09:32 Total Visit Minutes 25 Visit Information Visit Number 2 Setting Assessment Location Acute Care Patient Information Subjective Observations Pt sitting upright in chair in room upon ST entering room. She had breakfast meal tray in front of her, however mostly untouched. She states she ate some yogurt and the cheese off her scrambled eggs. She reports she is still recovering from having no appetite. Pt oriented to self, place and year. Treatment Liquids Trialed Thin (IDDSI 0) Solids Trialed Regular (IDDSI 7) Administration Type Controlled Cup Sip,Straw Oral Strategies Upright at 90 degrees Treatment Activities Therapeutic PO trials of reg solids and thin liquids via cup and straw in order to determine safest and most efficient least restrictive diet The IDDSI Framework Protocol: IDDSI.1 Assessment Patient Response to Treatment Good Rehab Potential Good Assessment of Improvement Pt consumed 1 marci cracker and about 6 oz of thin water via cup and straw. For cracker , Pt exhibited adequate bite size and rate, prolonged mastication however good bolus formation, timely ap transport, minimal oral stasis . For thin liquids via cup Pt exhibited adequate sip size and rate, good oral acceptance and containment, suspected delay in swallow, 1x throat clear, slightly wet vocal quality. For thin liquids via straw Pt exhibited adequate suction, good oral acceptance and containment, no overt s/s of aspiration with clear vocal quality. ST educated Pt on safe swallowing strategies. Recommendations Recommendations Continue Current Diet Liquids Order Thin (IDDSI 0) Diet Order Regular (IDDSI 7) Medication Recommendations As Tolerated Aspiration Precautions Recommended Precautions Upright at 90 Degrees, Alternate Liquids/Solids,Small Bites/Sips Treatment Plan Appropriate for Continued Therapy No Therapy Recommendations ST to d/c Pt from at this time d/t Pt tolerating current diet without any overt s/s of aspiration/penetration or swallowing difficulties. ST recommends Pt receive speech therapy upon discharge in the facility she is d/c to.
--- NOTE | 2024-11-17 10:40 | PT.IPTN ---
Current Diagnoses Adult failure to thrive (11/16/24) Physical Therapy Treatment Note M2 PT-IP Current Condition Start: 11/16/24 12:14 Freq: NEEDED Status: Active Protocol: Document 11/16/24 12:14 KJ (Rec: 11/16/24 12:28 KJ [id number]) Physical Therapy Current Condition Current Condition Evaluation Date 11/16/24 Treatment Diagnosis impaired mobility, impaired balance M3 PT-IP Subjective Start: 11/16/24 12:14 Freq: NEEDED Status: Active Protocol: Document 11/17/24 10:40 AB (Rec: 11/17/24 13:13 AB [id number]) Subjective Physical Therapy Visit Type Type Treatment Note Visit Start Time 10:40 Visit Stop Time 11:05 Number of MECHANICAL SYSTEMS ENGINEER Visits 20 Physical Therapy Visit Comments Patient Comments agreeable to do PT M4 PT-IP Mobility and Gait Start: 11/16/24 12:14 Freq: NEEDED Status: Active Protocol: Document 11/17/24 10:40 AB (Rec: 11/17/24 13:13 AB [id number]) PT-Transfer Assessment Sit to and From Stand Sit to and from Stand Minimal Assistance,1 Person Assistance,Use of Upper Extremities Equipment Transfer Assistive Device Gait Belt,Front Wheeled Walker Orthotic/Prosthetic Devices or Brace: No Comments Mobility Comments pt sitting on the chair and agreeable to do PT. completed sit to stand from the chair min A and cues. pt ambulated in room ~ 30 ft using FWW min A and cues. pt with difficulty moving LLE. cued for weight shifting and using FWW for support. pt sat back on chair. refused further ambulation. positioned pt on the chair. call light and table placed within reach. Gait Assessment Gait Gait Assistance Required: Minimum Assistance Distance (Feet) 30 Able to Maintain Weight Bearing Status No During Gait Assistive Devices Assistive Device Gait Belt,Front Wheeled Walker Orthotic/Prosthetic Devices or Brace: No Gait Deviations General Gait Pattern Decreased Stride Length, Decreased Feet Clearance,Step- to Gait Factors Limiting Gait Function Factors Limiting Gait Function Decreased Activity Tolerance, Decreased Strength,Difficulty Following Directions,Limited Range of Motion,Pain,Poor Balance,Poor Safety Awareness M5 PT-IP Objective Assessments Start: 11/16/24 12:14 Freq: NEEDED Status: Active Protocol: Document 11/16/24 12:14 KJ (Rec: 11/16/24 12:28 KJ [id number]) Orientation Orientation/Cognition Level of Alertness Alert Orientation Name,Age,Birthday Safety Awareness Decreased Safety Awareness Comments Requires frequent redirection to task. Gross Range of Motion Upper Extremity ROM Assessment Within Functional Limits Impairments right finger depuytren's contraction Lower Extremity ROM Assessment Within Functional Limits Strength Upper Extremity Strength Assessment Within Functional Limits Lower Extremity Strength Assessment Within Functional Limits Comments Strength Comments strong tempering kiln tender strength M6 PT-IP Treatment Start: 11/16/24 12:14 Freq: NEEDED Status: Active Protocol: Document 11/17/24 10:40 AB (Rec: 11/17/24 13:13 AB [id number]) Physical Therapy Treatment Education Education Provided Safety M7 PT-IP Assessment and Plan Start: 11/16/24 12:14 Freq: NEEDED Status: Active Protocol: Document 11/17/24 10:40 AB (Rec: 11/17/24 13:13 AB [id number]) PT Summary Assessment and Plan Potential Rehabilitation Potential Fair Summary Impairments Pain,ROM,Strength,Balance, Coordination,Sensation,Tone, Cognition,Bed Mobility, Transfers,Gait,Activity Tolerance Progress Towards Goals Slow Progress due to Activity Tolerance,Slow Progress - Other Assessment Summary pt requiring min A with ambulation using FWW ~ 30 ft. pt with decrease activity tolerance affecting mobility level. pt lives alone and will need 24/7 assist at this time . pt with h/o frequent falls and continues to be a high fall risk. pt will benefit from SNF rehab. Goals Bed Mobility Goal Independent Transfer Goal Independent,Front Wheeled Walker Gait Goal Independent,Front Wheel Walker Gait Distance 100 Other Goals up/down 1 step using FWW SBA Days to Meet Goals 10 Frequency of Treatment Frequency Of Treatment Once a Day Treatment Plan Physical Therapy Treatment Plan Bed Mobility Training,Transfer Training,Gait Training, Therapeutic Exercise,Balance Retraining,Discharge Planning, Hot or Cold Pack,Neuromuscular Re-ed,Coordination Retraining ,Manual Therapy Precautions Other Precautions falls Recommendations To Nursing Amount of Assist Needed 1 Person Assist Discharge Recommendations PT Discharge Recommendations SNF Rehab Transportation Needs at Discharge Wheelchair/Cabulance
[2024-11-17 11:00] VITALS: BP 100/50; PULSE 82; RESP 18; TEMP 36.6; O2SAT 96
--- NOTE | 2024-11-17 11:04 | DIET.PN1 ---
Dietary Progress Note Assessment: RD f/u. Met with pt at bedside. Pt and unit host discussed energy-kcal supplement pt would most tolerate. Pt dislikes Ensure d/t sweetness. Trial of less sweet protein smoothie coordinated by unit host. Pt able to tolerate small amounts at meals, she wants to continue to increase intakes to help gain weight back. Discussed snacks in between meals as appetite continues to improve. Spoke to pharmacist. Pt at risk for refeeding d/t severe protein calorie malnutrition. K+, phos, and Mg ordered for next 3 days. Will provide energy-protein supplement BID-TID as tolerated. Ht: 157.48 cm Wt: 44 kg BMI: 17.7 Last BM: 11/16/24 (11/16/24 08:30) MNA: 7 Jaquan Score: 17 Diet: 11/16/24 Breakfast General (Regular) Diet Diet Modifications: Nutrition Percent Meal Consumed 10% 11/16/24 18:00 Labs: RBC 4.14 X10^6/uL (4.0-5.2) 11/17/24 05:00 Hgb 11.2 g/dL (12.0-16.0) L 11/17/24 05:00 Hct 34.9 % (36-46) L 11/17/24 05:00 Creatinine 0.83 mg/dL (0.52-1.04) 11/17/24 05:00 Lactate 1.8 mmol/L (0.7-2.1) 11/16/24 00:11 Electronically Signed by: Reema Pop 11/17/24 11:04 Clinical Dietitian [address] [address]
--- NOTE | 2024-11-17 12:50 | CM.DPNOTE ---
Addendum entered by NADIR Rosenthal 11/17/24 13:12: [facility] back from , can accept pt. Scheduled for p/u pending medical stability. DIGITAL SERVICE ENGINEER updated provider. in agreement. DIGITAL SERVICE ENGINEER entered room and introduced self and role. Pt sitting up in chair. preference remains dc to [facility], appreciate update of acceptance. deny other questions at this time, SL Addendum entered by NADIR Rosenthal 11/17/24 12:55: Add to previous note, DIGITAL SERVICE ENGINEER spoke with Anna from [facility] to cancel referral initiated by family. updated Anna that plan is now rehab. Anna appreciated update and cancelled referral. SL Original Note: DCP Note DIGITAL SERVICE ENGINEER reviewed EMR. Per OT, pt cognitively improved today compared to yesterday. Per chart, pt changed to INPT status Saturday, would qualify for SNF under Medicare A , 11/19. ([employer] federal as primary? Has Medicare A as secondary?) DIGITAL SERVICE ENGINEER emailed and [facility] to check in on acceptance status, no response. Received email from bernadette Molina ([email or web address]) with DPOA paperwork. Placed physical copy in chart and additional copy in scanning folder to be put in her chart. DIGITAL SERVICE ENGINEER spoke with bernadette Molina on the phone with updates. Answered questions to best of ability. Dtr plans to visit pt today, preference remains SNF at [facility]. DIGITAL SERVICE ENGINEER attempted to meet with pt in room, sleeping soundly in chair (snoring). allowed to rest. P: preference dc to [facility] when medically stable pending acceptance. PASRR previously completed. CM team will continue to follow closely NADIR Rosenthal
--- NOTE | 2024-11-17 13:28 | P.PN_ITS ---
Subjective Subjective Date Patient Seen: 11/17/24 Time Patient Seen: 13:28 Interval history: Patient seen in [facility] for Dr. Dixon. Patient had uneventful night. Patient is reportedly less confused in his alert and oriented x3. She has very little appetite. She had a swallow eval and passed it without restrictions however she complains feeling that she is regurgitating her food. No chest pain, no shortness a breath no lightheadedness or dizziness Exam Vital Signs (past 8 hours): - 11/17/24 07:00 11/17/24 11:00 Temperature 97.9 F 97.9 F Pulse Rate 79 82 Respiratory Rate 14 18 Blood Pressure 97/54 L 100/50 L Pulse Oximetry 96 96 Oxygen Flow Rate 0 0 Oxygen Delivery Method Room Air Oxygen Flow Rate 0 Narrative Exam Narrative: Afebrile vital signs are stable blood pressure slightly low Alert and oriented x3 HEENT: Unremarkable Neck: Supple Chest: Clear to auscultation without wheezes rhonchi or crackles slightly decreased breath sounds at the bases Cor: Regular rate and rhythm with distant S1-S2 Abdomen: Positive bowel sounds, soft, nontender, nondistended Extremities 2+ pitting edema, pulses intact Objective Labs 11/17/24 05:00 11/17/24 05:00 Labs: Laboratory Results - last 24 hr 11/17/24 05:00 WBC 8.2 RBC 4.14 Hgb 11.2 L Hct 34.9 L MCV 84.2 MCH 27.2 MCHC 32.3 RDW 16.8 H Plt Count 461 H Total Counted 100 Seg Neutrophils % 85.0 H Lymphocytes % (Manual) 6.0 L Monocytes % (Manual) 7.0 Eosinophils % (Manual) 2.0 Neutrophils # (Manual) 6970 H Platelet Estimate Increased on smear RBC Morphology Normal morphology Sodium 131 L Potassium 3.2 L Chloride 100 Carbon Dioxide 32 BUN 32 H Creatinine 0.83 Estimated GFR > 60 BUN/Creatinine Ratio 38.6 H Glucose 96 Calcium 7.9 L Total Bilirubin 0.4 AST 31 ALT 13 Alkaline Phosphatase 70 Total Creatine Kinase 56 Total Protein 5.9 L Albumin 2.4 L Globulin 3.5 Albumin/Globulin Ratio 0.7 L PFSH Social History household members: none Smoking Status: Former smoker alcohol intake: current Assessment & Plan Assessment & Plan narrative: Patient 89-year-old with failure to thrive. Weight loss incontinence memory changes and FTT Urosepsis. Urinary incontinence. Suspect UTI. On ceftriaxone. Awaiting for urine culture. Will continue the same. Hypoglycemia. I think this is probably secondary to her infection seems to be stabilized now. But will see how things go. Will continue fluid but hold further glucose. And see how she does is capable of eating on her own. With no other changes. Patient with very poor p.o. intake. This is certainly contributing as well as the fact that she did not take her medications for the last month and has a markedly elevated TSH. Will continue to monitor Dehydration. Moderate been hydrated over the last 24 hours will continue to follow but I do not think we need to aggressively go from there. She has been replaced is currently off IV fluids in his stable. We will continue to monitor and monitor renal function. Metabolic encephalopathy. Seems to be clearing with treatment with IV antibiotics. This is for suspected UTI. This is the 1st time I have met patient. She is alert and oriented x3 but she does recognize when I say that I am the doctor her seeing her today and then within 1 minute later she talks about when the doctor comes to see her. Hypothyroidism. TSH markedly elevated at the time of admit. Patient has stopped taking her meds for a month. Will continue with a slightly increased dose and monitor closely. Severe protein malnutrition. Reviewed swallow eval and dietary evaluation. Will monitor phosphorus and magnesium as we attempt to get her to eat. Patient essentially takes 1 by a day of food. Suspect this is the etiology of her peripheral edema. Hypokalemia. Plan replace by pharmacy. Recheck in a.m.. Peripheral edema: Suspect secondary to severe malnutrition. We will continue to work at improving her diet. Code status no code. GI prophylaxis on pantoprazole. Will follow. Disposition. Due to multiple medical problems and current status patient will require 24/7 care and skilled care facility is recommended. We have been in discussion with [facility] and they are willing to take patient on . 65 minutes spent with patient discussing with physician and nursing and pharmacy and meeting with patient and reviewing chart and formulating a plan and documentation. Time-Based Coding :: [TOTAL MINUTES] spent with patient and on the chart (including review of chart, obtaining history, exam, reviewing outside data, placing orders, documenting exam and treatment plan, and counseling patient) on [DATE]. Quality VTE Deep Vein Thrombosis/Pulmonary Embolism Present on Admission: No
[2024-11-17 15:00] VITALS: BP 92/46; PULSE 81; RESP 18; TEMP 36.5; O2SAT 93
--- NOTE | 2024-11-17 15:08 | PC.NURSE ---
Report received from Betsy WHEELER, assuming care of patient at this time. Call light with in reach, patient is sitting up in chair. Chair alarm active. Patient thinks it is morning, but knows it is November 17 or today, states her family will be coming in later today. Denies pain. Continue to monitor.
[2024-11-17] MEDS: cefTRIAXone 2,000 MG in SODIUM CHLORIDE 0.9% 100 ML 200 MG IV (16:43)
[2024-11-17 19:00] VITALS: BP 137/61; PULSE 80; RESP 18; TEMP 36.7; O2SAT 96
[2024-11-18] VITALS: BP 122/57; PULSE 82; RESP 18; TEMP 36.7; O2SAT 99
[2024-11-18 04:00] VITALS: BP 134/66; PULSE 83; RESP 18; TEMP 36.9; O2SAT 96
[2024-11-18] MEDS: LEVOTHYROXINE 112 MCG TABLET PO (05:18)
[2024-11-18 05:39] LABS: Add Manual Diff / Slide Review NO; Basophils Absolute Auto 100 /uL (0-100); Basophils Percent Auto 0.8 % (0-2); Eosinophils Absolute Auto 100 /uL (0-450); Hematocrit 33.3 % (36-46); Hemoglobin 10.9 g/dL (12.0-16.0); Lymphocytes Absolute Auto 700 /uL (1100-4500); Lymphocytes Percent Auto 8.7 % (25-40); Mean Corpuscular HGB Conc 32.6 % (30-36); Mean Corpuscular Hemoglobin 27.5 PG (26-34); Mean Corpuscular Volume 84.2 fL (80-100); Monocytes Absolute Auto 500 /uL (0-900); Neutrophils Absolute Auto 6900 /uL (1500-7000); Neutrophils Percent Auto 83.5 % (50-75); Platelet Count 482 X10^3/uL (150-400); Red Blood Cell Count 3.95 X10^6/uL (4.0-5.2); Red Cell Distribution Width 16.8 % (11.6-14.8); White Blood Cell Count 8.3 X10^3/uL (4.5-11.0)
[2024-11-18 06:06] LABS: BUN Creatinine Ratio 40.6 (6-22); Blood Urea Nitrogen 28 mg/dL (7-17); Calcium 7.9 mg/dL (8.4-10.2); Carbon Dioxide 32 mmol/L (22-32); Chloride 101 mmol/L (98-107); Estimated Glomerular Filt Rate > 60 mL/min (>60); Glucose 102 mg/dL (80-110); HEMOLYSIS < 15 (0-50); Potassium 3.5 mmol/L (3.4-5.1); Sodium 130 mmol/L (137-145)
[2024-11-18 08:00] VITALS: BP 126/62; PULSE 86; RESP 16; TEMP 36.6; O2SAT 93
[2024-11-18] MEDS: PANTOPRAZOLE DR 20 MG TABLET PO ×2 (08:44→20:22)
[2024-11-18] MEDS: POTASSIUM CHLORIDE 20 MEQ TAB PO (08:44)
[2024-11-18] MEDS: SODIUM,POTASSIUM PHOSPHATES PACKET 2 EACH PO (08:45)
--- NOTE | 2024-11-18 11:12 | PM.PN.1 ---
Subjective Subjective Date Patient Seen: 11/18/24 Time Patient Seen: 09:55 Interval history: Patient doing well this morning, noting that she is cold but otherwise no pain or discomfort. No abdominal pain. She is able to tell me that she is at the hospital in [place]. She knows her name, date of and the current year. She discusses not feeling hungry and having to force herself to drink fluids. She is spends most of the visit discussing her who she states is a physician previous general practitioner and states that she has had trouble eating of late because at dinnertime he will talk about his previous cadaver. She states she knows the name of the cadaver. She also discusses adapting triplet daughters and knows that 1 was 3 lb 13 oz, another was 3 lb 12 oz and the other was much smaller. She discusses a daughter who lives on [address] [facility] [address] and is a Dentist. she also notes that she is a zoologist and she went to school with her and took a practice test on emotional disabilities teacher when her was studying for school and in a fraternity that got a copy of the test so she knows a lot about the subject. On discussion with the patient's nurse, most of this is not supported in the known history of the patient. Per nursing no events overnight Exam Vital Signs (past 8 hours): - 11/18/24 04:00 11/18/24 07:00 11/18/24 08:00 Temperature 98.5 F 98 F Pulse Rate 83 86 Respiratory Rate 18 16 Blood Pressure 134/66 126/62 Pulse Oximetry 96 93 Oxygen Delivery Method Room Air Oxygen Flow Rate 0 0 Oxygen Delivery Method Room Air Oxygen Flow Rate 0 Narrative Exam Narrative: Gen: sleeping comfortably on entering room, awakens easily to voice. non-toxic MMM: licking lips frequently, notes that her mouth is dry eyes: EOMI CV: RRR, heart sounds distant Pulm: CTAB Abd: non-tender, non-distended Neuro: Oriented to person, place and situation but does note significant history provided that is suspected to be untrue and is concerning for confabulation (see subjective for details) Objective Labs 11/18/24 05:00 11/18/24 05:00 Labs: Laboratory Results - last 24 hr 11/18/24 05:00 WBC 8.3 RBC 3.95 L Hgb 10.9 L Hct 33.3 L MCV 84.2 MCH 27.5 MCHC 32.6 RDW 16.8 H Plt Count 482 H Neut % (Auto) 83.5 H Lymph % (Auto) 8.7 L Charlton % (Auto) 6.0 Eos % (Auto) 1.0 L Baso % (Auto) 0.8 Neut # (Auto) 6900 Lymph # (Auto) 700 L Charlton # (Auto) 500 Eos # (Auto) 100 Baso # (Auto) 100 Sodium 130 L Potassium 3.5 Chloride 101 Carbon Dioxide 32 BUN 28 H Creatinine 0.69 Estimated GFR > 60 BUN/Creatinine Ratio 40.6 H Glucose 102 Calcium 7.9 L Phosphorus 2.0 L Magnesium 2.0 PFSH Medical History (Updated 11/18/24 @ 11:17 by Julissa Chu MD) Malnutrition Social History household members: none Smoking Status: Former smoker alcohol intake: current Assessment & Plan Assessment and plan (1) Acute UTI: Status: Acute (2) Altered mental status: Qualifiers: Altered mental status type: unspecified Qualified Code(s): R41.82 - Altered mental status, unspecified Status: Acute (3) Malnutrition: Qualifiers: Malnutrition type: protein-calorie malnutrition Protein-calorie malnutrition severity: unspecified severity Qualified Code(s): E46 - Unspecified protein-calorie malnutrition Status: Acute Plan 89-year-old female admitted for urosepsis, found to have failure to thrive with weight loss, incontinence, confusion and malnutrition. On exam today, she does appear to be confabulating although history that was noted can not be entirely disc proven. She does mention having dinner with her who she states was a doctor but nursing staff notes that she does live alone. 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 She is oriented to person, place and time. Current plan is for discharge to sniff tomorrow. ## urosepsis ## UTI: Being treated with ceftriaxone, urine cultures showing mixed alma on unsuitable for further studies and blood cultures no growth to date at 48 hours -continue ceftriaxone ## altered mental status: Oriented to person, place and time but providing a history that is not thought to be accurate. Suspect related to infection. Planning for sniff discharge ## hypothyroidism, TSH elevated at admission and patient did stop medications about a month ago -continue levothyroxine ## protein calorie malnutrition: Suspect related to poor p.o. intake, dietary agreeing with diagnosis of malnutrition. Continuing to trend phos and Mag through refeeding. ## hypokalemia: Normalized, now 3.5, continue to trend Code status-DNR GI PPX pantoprazole Dispo planning patient requires care home facility due to multiple medical concerns, transferred to SNF planned for tomorrow Diet: general DVT ppx: Lovenox Time-Based Coding :: [TOTAL MINUTES] spent with patient and on the chart (including review of chart, obtaining history, exam, reviewing outside data, placing orders, documenting exam and treatment plan, and counseling patient) on [DATE]. Quality VTE Deep Vein Thrombosis/Pulmonary Embolism Present on Admission: No
[2024-11-18 12:00] VITALS: BP 116/58; PULSE 85; RESP 17; TEMP 36.6; O2SAT 93
--- NOTE | 2024-11-18 13:49 | PT.IPTN ---
Current Diagnoses Unspecified protein-calorie malnutrition (11/16/24) Urinary tract infection, site not specified (11/16/24) Altered mental status, unspecified (11/16/24) Adult failure to thrive (11/16/24) Physical Therapy Treatment Note M2 PT-IP Current Condition Start: 11/16/24 12:14 Freq: NEEDED Status: Active Protocol: Document 11/16/24 12:14 KJ (Rec: 11/16/24 12:28 KJ [id number]) Physical Therapy Current Condition Current Condition Evaluation Date 11/16/24 Treatment Diagnosis impaired mobility, impaired balance M3 PT-IP Subjective Start: 11/16/24 12:14 Freq: NEEDED Status: Active Protocol: Document 11/18/24 13:44 [facility] (Rec: 11/18/24 13:49 LR [id number]) Subjective Physical Therapy Visit Type Type Treatment Note Visit Start Time 13:15 Visit Stop Time 13:45 Number of MARINE FIRE FIGHTER Visits 0 M4 PT-IP Mobility and Gait Start: 11/16/24 12:14 Freq: NEEDED Status: Active Protocol: Document 11/18/24 13:44 LR (Rec: 11/18/24 13:49 [facility] [id number]) PT-Bed Mobility Assessment Supine to Sit Supine to Sit Moderate Assistance,Head of Bed Elevated,Bedrails Scooting Scooting to Edge of Bed Minimal Assistance PT-Transfer Assessment Sit to and From Stand Sit to and from Stand Minimal Assistance,Use of Upper Extremities Equipment Transfer Assistive Device Gait Belt,Front Wheeled Walker Transfers Transfer Destination Chair Transfer Ability Level of Assist Minimal Assistance Gait Assessment Gait Gait Assistance Required: Minimum Assistance Distance (Feet) 20 Assistive Devices Assistive Device Gait Belt,Front Wheeled Walker Orthotic/Prosthetic Devices or Brace: No Gait Deviations General Gait Pattern Decreased Stride Length, Decreased Feet Clearance, Flexed Trunk Factors Limiting Gait Function Factors Limiting Gait Function Decreased Activity Tolerance, Decreased Strength,Poor Balance Comments Gait Comments supint to sit w/mod A today and min A to scoot to EOB. min A for sit to stnd and ptamb in room 20ft w/FWW w/min A and sat in chair. Pt reclined and left w/call light in reach and chair alarm on. PT-Balance Assessment Sitting Balance and Reactions Static Sitting Balance Ability Fair Dynamic Sitting Balance Ability Fair Standing Balance and Reactions Static Standing Balance Ability Poor Dynamic Standing Balance Ability Poor M5 PT-IP Objective Assessments Start: 11/16/24 12:14 Freq: NEEDED Status: Active Protocol: Document 11/16/24 12:14 KJ (Rec: 11/16/24 12:28 KJ [id number]) Orientation Orientation/Cognition Level of Alertness Alert Orientation Name,Age,Birthday Safety Awareness Decreased Safety Awareness Comments Requires frequent redirection to task. Gross Range of Motion Upper Extremity ROM Assessment Within Functional Limits Impairments right finger depuytren's contraction Lower Extremity ROM Assessment Within Functional Limits Strength Upper Extremity Strength Assessment Within Functional Limits Lower Extremity Strength Assessment Within Functional Limits Comments Strength Comments strong per diem strength M6 PT-IP Treatment Start: 11/16/24 12:14 Freq: NEEDED Status: Active Protocol: Document 11/18/24 13:44 [facility] (Rec: 11/18/24 13:49 [facility] [id number]) Physical Therapy Treatment Education Education Provided Safety M7 PT-IP Assessment and Plan Start: 11/16/24 12:14 Freq: NEEDED Status: Active Protocol: Document 11/18/24 13:44 [facility] (Rec: 11/18/24 13:49 [facility] [id number]) PT Summary Assessment and Plan Summary Impairments Pain,ROM,Strength,Balance, Coordination,Sensation,Tone, Cognition,Bed Mobility, Transfers,Gait,Activity Tolerance Progress Towards Goals Slow Progress due to Activity Tolerance,Slow Progress - Other Assessment Summary Pt limited in mobility and is very slow w/mobility. She has decreased overall activity tolerance and requires min A w /all mobility and mod A for bed mobility today. Supine BP 105/55 and seated 119/60. pt will benefit from snf rehab prior to returning home. Goals Bed Mobility Goal Independent Transfer Goal Independent,Front Wheeled Walker Gait Goal Independent,Front Wheel Walker Gait Distance 100 Other Goals up/down 1 step using FWW SBA Days to Meet Goals 10 Frequency of Treatment Frequency Of Treatment Once a Day Treatment Plan Physical Therapy Treatment Plan Bed Mobility Training,Transfer Training,Gait Training, Therapeutic Exercise,Balance Retraining,Discharge Planning, Hot or Cold Pack,Neuromuscular Re-ed,Coordination Retraining ,Manual Therapy Other Recommendations and Next Treatment focus on safe mobility Focus Precautions Other Precautions falls Recommendations To Nursing Amount of Assist Needed 1 Person Assist Discharge Recommendations PT Discharge Recommendations SNF Rehab Transportation Needs at Discharge Wheelchair/Cabulance
[2024-11-18] MEDS: cefTRIAXone 2,000 MG in SODIUM CHLORIDE 0.9% 100 ML 200 MG IV (15:27)
[2024-11-18 16:00] VITALS: BP 127/61; PULSE 85; RESP 16; TEMP 36.5; O2SAT 94
[2024-11-18 20:00] VITALS: BP 100/58; PULSE 86; RESP 18; TEMP 36.7; O2SAT 91
[2024-11-19 02:00] VITALS: BP 125/63; PULSE 88; RESP 17; TEMP 35.9; O2SAT 92
[2024-11-19] MEDS: LEVOTHYROXINE 112 MCG TABLET PO (05:10)
[2024-11-19 05:49] LABS: Magnesium 1.9 mg/dL (1.6-2.3); Phosphorous 2.2 mg/dL (2.8-4.1)
[2024-11-19 05:50] LABS: BUN Creatinine Ratio 34.9 (6-22); Blood Urea Nitrogen 22 mg/dL (7-17); Calcium 7.9 mg/dL (8.4-10.2); Carbon Dioxide 29 mmol/L (22-32); Chloride 101 mmol/L (98-107); Estimated Glomerular Filt Rate > 60 mL/min (>60); Glucose 101 mg/dL (80-110); HEMOLYSIS < 15 (0-50); Potassium 4.1 mmol/L (3.4-5.1); Sodium 132 mmol/L (137-145)
[2024-11-19] MEDS: PANTOPRAZOLE DR 20 MG TABLET PO (08:09)
[2024-11-19] MEDS: ENOXAPARIN 30 MG/0.3 ML SYRINGE SUBCUT (08:09)
[2024-11-19 08:45] VITALS: BP 117/56; PULSE 93; RESP 17; TEMP 36.5; O2SAT 91
--- NOTE | 2024-11-19 10:25 | P.DS_ITS ---
History of Present Illness History of Present Illness Date Patient Seen: 11/19/24 Time Patient Seen: 09:00 Chief complaint: slipped off sofa Narrative: CC: UTI Feeling well this morning appetite remains reduced I'm a skeleton and you can't feed a skeleton denies any pain I have never been in pain She is improving ready to go to [facility] keep building up strength working with PT f/up as outpt. concern for FTT out on [place] living by herself may need better discharge plan after SNF. Discharge Providers Provider Date of admission: 11/16/24 13:59 Discharge Date: 11/19/24 Primary care physician: Boom Dixon MD Consults: 11/15/24 22:46 [place] [facility] Quality Assurance Consultant Stat Comment: Quality Assurance Consultant Consult needed for:: Unable to care for self Comment: Pt brief and clothing saturated with urine upon arrival. Lives alone. Daughter checks in on daily, but works. Pt states she can not get out of bed easily. 11/16/24 09:16 Consult to Occupational Therapy Evaluate & Treat Comment: Physician Instructions: Evaluate and treat Consult to Physical Therapy Evaluate & Treat Comment: Physician Instructions: Evaluate and Treat 11/16/24 10:00 Consult to Dietitian, Adult Routine Comment: Reason For Exam: Cachexis, BMI <18 Consult to Speech Therapy Evaluate & Treat Comment: Physician Instructions: Evaluate and treat Discharge provider: Yoan Valencia MD Summary Hospital Course Discharge Diagnosis: #acute UTI: #altered mental status #hypothyroidism #protein calorie malnutrition, severe #Hypokalemia Hospital Course: 89-year-old female admitted for urosepsis, found to have failure to thrive with weight loss, incontinence, confusion and malnutrition. On exam today, she does appear to be confabulating although history that was noted can not be entirely disc proven. She does mention having dinner with her who she states was a doctor but nursing staff notes that she does live alone. 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 She is oriented to person, place and time. Current plan is for discharge to [facility] tomorrow. Status at Discharge Cognitive/behavioral status at discharge: oriented and calm Functional status at discharge: uses cane/walker Overall status at discharge: patient is progressing back to baseline Exam Vital Signs (past 8 hours): - 11/19/24 08:45 Temperature 97.7 F Pulse Rate 93 H Respiratory Rate 17 Blood Pressure 117/56 L Pulse Oximetry 91 Oxygen Flow Rate 0 Oxygen Delivery Method Room Air Oxygen Flow Rate 0 Narrative Exam Narrative: elder alert laying in bed Const Other: too thin Resp Other: clear to auscultation bilaterally Cardio Other: regular rate and rhythm, s1/s2, no pedal edema GI Other: soft nontender active bowel sounds Neuro Other: alert moving all limbs recognizes me Objective Labs 11/18/24 05:00 11/19/24 05:10 Labs: Laboratory Results - last 24 hr 11/19/24 05:10 Sodium 132 L Potassium 4.1 Chloride 101 Carbon Dioxide 29 BUN 22 H Creatinine 0.63 Estimated GFR > 60 BUN/Creatinine Ratio 34.9 H Glucose 101 Calcium 7.9 L Phosphorus 2.2 L Magnesium 1.9 PFSH Medical History (Updated 11/18/24 @ 11:17 by Julissa Chu MD) Malnutrition Social History household members: none Smoking Status: Former smoker alcohol intake: current Discharge Assessment & Plan Assessment and Plan Assessment: #acute UTI: cultures grew nothing specific, s/p adequate treatment with iv rocephin ok to stop meds on dc - could have been contributory to neuro findings. she is still improving from this and should be monitored with encouraged p.o. hydration resume home meds work on nutrition #altered mental status: Orientation seems to be improved today but i suspect there is still some confabulation - improving with UTI treatment continue good hydration monitor vitals #hypothyroidism off meds for a month - TSH high - resume home levothyroxine 100mcg qam. #protein calorie malnutrition, severe Last recorded weight in clinic was 49.3 kg on june 12 2024 with significant drop now to 44kg she is eating some with encouragement but her overall appetite is quite low and there is an evident failure to thrive component. Suspect related to poor p.o. intake, dietary agreeing with diagnosis of malnutrition, will work on improving nutrition at SNF. #Hypokalemia improving s/p repletion, monitor Code status-DNR GI PPX pantoprazole Dispo planning patient requires retirement facility due to multiple medical concerns, transferring to SNF today Diet: general DVT ppx: Lovenox Discharge Plan Discharge Plan Patient Disposition: SNF Transfer to: [facility] Discharge orders & Medications Prescriptions: Continued omeprazole magnesium [Acid Hearing Aid Fitter (omeprazole)] 20 mg Capsule,Delayed Release(Dr/Ec) 20 mg PO BID losartan 25 mg tablet 50 mg PO BID Creon 24,000-76,000 -120,000 unit capsule,delayed release(DR/EC) 3 cap PO 3XD levothyroxine 100 mcg tablet 100 mcg PO DAILY Follow up/Referrals: Boom Dixon MD [Primary Care Provider] - Visit Report/Discharge Packet Stand Alone Forms: Patient Portal/API Discharge Data Primary Care Provider: Boom Dixon Quality VTE Deep Vein Thrombosis/Pulmonary Embolism Present on Admission: No
--- NOTE | 2024-11-19 10:59 | CM.DPNOTE ---
DCP note ELECTRICAL ENGINEERING DRAFTSPERSON reviewed EMR Per Dr. Valencia, medically cleared to dc today. Per Deanna at , can accept pt today transport at 1300. CC Bella kindly agreed to send PASRR, signed meds, and dc information to when available. Provided RN with report number and alerted ELL TEACHER. ELECTRICAL ENGINEERING DRAFTSPERSON spoke with dtr Chelsie (p [phone]) and updated her on above plan. Chelsie in agreement, plans to be here for dc. denies further questions. ELECTRICAL ENGINEERING DRAFTSPERSON reviewed plan with pt in room. Confirm preference and agreement with plan. ELECTRICAL ENGINEERING DRAFTSPERSON answered questions to best of ability. pt reports liking the PT here and looking forward to getting more PT at . ELECTRICAL ENGINEERING DRAFTSPERSON spoke with dtr/primary POA Jelani (p [phone]) ([place]) on above. Answered questions to best of ability. Jelani in agreement with preference to dc to [facility] prior to pt returning home. ELECTRICAL ENGINEERING DRAFTSPERSON answered questions to best of ability on POA for healthcare/financial. Jelani appreciative. P: pt to dc to [facility] today at 1300. no further CM needs identified at this time. CM team will continue to follow as needed NADIR Rosenthal
--- NOTE | 2024-11-19 11:15 | PT.IPTN ---
Current Diagnoses Unspecified protein-calorie malnutrition (11/16/24) Urinary tract infection, site not specified (11/16/24) Altered mental status, unspecified (11/16/24) Adult failure to thrive (11/16/24) Physical Therapy Treatment Note M2 PT-IP Current Condition Start: 11/16/24 12:14 Freq: NEEDED Status: Active Protocol: Document 11/16/24 12:14 KJ (Rec: 11/16/24 12:28 KJ [id number]) Physical Therapy Current Condition Current Condition Evaluation Date 11/16/24 Treatment Diagnosis impaired mobility, impaired balance M3 PT-IP Subjective Start: 11/16/24 12:14 Freq: NEEDED Status: Active Protocol: Document 11/19/24 11:41 TS (Rec: 11/19/24 11:47 TS [id number]) Subjective Physical Therapy Visit Type Type Treatment Note Visit Start Time 11:15 Visit Stop Time 11:40 Number of TAX ASSESSOR Visits 1 Physical Therapy Visit Comments Patient Comments Pt found resting in bed, she is agreeable to PT. M4 PT-IP Mobility and Gait Start: 11/16/24 12:14 Freq: NEEDED Status: Active Protocol: Document 11/19/24 11:41 TS (Rec: 11/19/24 11:47 TS [id number]) PT-Bed Mobility Assessment Supine to Sit Supine to Sit Minimal Assistance,Head of Bed Elevated,Bedrails Sit to Supine Sit to Supine Moderate Assistance,1 Person Assistance PT-Transfer Assessment Sit to and From Stand Sit to and from Stand Minimal Assistance,Use of Upper Extremities Equipment Transfer Assistive Device Gait Belt,Front Wheeled Walker Orthotic/Prosthetic Devices or Brace: No Comments Mobility Comments Supine to sit Ric for uprighting trunk. STS with FWW ModA, pt has a posterior lean , braces back of LE's against EOB for balance. Ambulates with FWW ~25', requires Ric at times for balance. Pt fatigues and reports feeling nauseous. Sit to supine into bed ModA. Pt was left in bed, all needs met. Gait Assessment Gait Gait Assistance Required: Minimum Assistance Distance (Feet) 25 Able to Maintain Weight Bearing Status No During Gait Assistive Devices Assistive Device Gait Belt,Front Wheeled Walker Orthotic/Prosthetic Devices or Brace: No Gait Deviations General Gait Pattern Decreased Stride Length, Decreased Feet Clearance, Flexed Trunk Factors Limiting Gait Function Factors Limiting Gait Function Decreased Activity Tolerance, Decreased Strength,Poor Balance PT-Balance Assessment Sitting Balance and Reactions Static Sitting Balance Ability Fair Dynamic Sitting Balance Ability Fair Standing Balance and Reactions Static Standing Balance Ability Poor Dynamic Standing Balance Ability Poor Device Used FWW M5 PT-IP Objective Assessments Start: 11/16/24 12:14 Freq: NEEDED Status: Active Protocol: Document 11/16/24 12:14 KJ (Rec: 11/16/24 12:28 KJ [id number]) Orientation Orientation/Cognition Level of Alertness Alert Orientation Name,Age,Birthday Safety Awareness Decreased Safety Awareness Comments Requires frequent redirection to task. Gross Range of Motion Upper Extremity ROM Assessment Within Functional Limits Impairments right finger depuytren's contraction Lower Extremity ROM Assessment Within Functional Limits Strength Upper Extremity Strength Assessment Within Functional Limits Lower Extremity Strength Assessment Within Functional Limits Comments Strength Comments strong belt repairer strength M6 PT-IP Treatment Start: 11/16/24 12:14 Freq: NEEDED Status: Active Protocol: Document 11/19/24 11:41 TS (Rec: 11/19/24 11:47 TS [id number]) Physical Therapy Treatment Education Education Provided Safety M7 PT-IP Assessment and Plan Start: 11/16/24 12:14 Freq: NEEDED Status: Active Protocol: Document 11/19/24 11:41 TS (Rec: 11/19/24 11:47 TS [id number]) PT Summary Assessment and Plan Summary Impairments Pain,ROM,Strength,Balance, Coordination,Sensation,Tone, Cognition,Bed Mobility, Transfers,Gait,Activity Tolerance Progress Towards Goals Slow Progress due to Activity Tolerance,Slow Progress - Other Assessment Summary Pt is making slow progress with her mobility. She continues to fatigue quickly with ambulation and has some nausea. PT continues to recommend SNF. Goals Bed Mobility Goal Independent Transfer Goal Independent,Front Wheeled Walker Gait Goal Independent,Front Wheel Walker Gait Distance 100 Other Goals up/down 1 step using FWW SBA Days to Meet Goals 10 Frequency of Treatment Frequency Of Treatment Once a Day Treatment Plan Physical Therapy Treatment Plan Bed Mobility Training,Transfer Training,Gait Training, Therapeutic Exercise,Balance Retraining,Discharge Planning, Hot or Cold Pack,Neuromuscular Re-ed,Coordination Retraining ,Manual Therapy Other Recommendations and Next Treatment focus on safe mobility Focus Precautions Other Precautions falls Recommendations To Nursing Amount of Assist Needed 1 Person Assist Discharge Recommendations PT Discharge Recommendations SNF Rehab Transportation Needs at Discharge Wheelchair/Cabulance
[2024-11-19] MEDS: SODIUM,POTASSIUM PHOSPHATES PACKET 2 EACH PO (11:23)
--- NOTE | 2024-11-19 12:35 | PC.NURSE ---
D/c packet printed and added to packet for SNF. IV removed. Called and gave report to Nancy at [facility]. Pt will be picked up by [facility] personnel.
== END 2024-11-19 13:21 | DRG 689 ==
LOC: ED 11-16 01:12 → AC 11-16 01:12
PROVIDERS: Family Medicine; Pharmacist Pharmacist Clinician (PhC)/ Clinical Pharmacy Specialist; Admitting Provider Family Medicine; Emergency Provider Emergency Medicine; Family Provider Family Medicine; PCP Family Medicine; Visit Provider Family Medicine
DX: N39.0 Urinary tract infection, site not specified (principal); E43 Unspecified severe protein-calorie malnutrition; G93.41 Metabolic encephalopathy; Z68.1 Body mass index [BMI] 19.9 or less, adult; R62.7 Adult failure to thrive; E16.2 Hypoglycemia, unspecified; E86.0 Dehydration; E03.9 Hypothyroidism, unspecified; I10 Essential (primary) hypertension; E87.6 Hypokalemia; R60.0 Localized edema; Z66 Do not resuscitate; Z60.2 Problems related to living alone; Z87.891 Personal history of nicotine dependence
CPT/HCPCS: 0241U; 36415; 51701; 70450; 70496; 70498; 71045; 80048; 80053; 80305; 80320; 81001; 82550; 82962; 83605; 83735; 84100; 84145; 84443; 84484; 85025; 87040; 87086; 92526; 92610; 93005; 96365; 96367; 97116; 97162; 97166; 97530; 97535; 99285; G0378; J0696; J1650; Q9967